=== PATIENT | female | born 1995 | race Caucasian/White ===

== ENCOUNTER 2022-01-28 20:40 | Observation (INO) | payer OTHER, SELFPAY ==
[2022-01-28 21:15] VITALS: BMI 52.0
--- NOTE | 2022-01-28 21:15 | OBADM ---
This patient, Celia Xavier, admitted to the OB room OB Post 113 for observation. Patient/family oriented to hospital policies and general routines including ID bracelet, bed and alarms, visiting hours, pain management, procedures, bathroom and other care routines, personal items, smoking policy, room service/diet, and visiting hours. Patient/Family are encouraged to report perceived risks to care and to ask questions if they do not understand what they are told or what they should do.
[2022-01-28 21:16] VITALS: BP 134/53; PULSE 88
[2022-01-28 21:31] VITALS: BP 135/101; PULSE 89
[2022-01-28 21:52] VITALS: BP 114/68; PULSE 85
--- NOTE | 2022-01-28 22:00 | PC.NURSE ---
Dr Moreno notified of adm c/o and that patient is now feeling better and wants to go home. Ok to dc home.
--- NOTE | 2022-01-31 07:09 | PM.OBTRLD ---
OB - Triage/Final Diagnosis Visit Information Date of evaluation: 01/30/22 Reason for evaluation: other (nausea/dehydration) Comments/Additional reasons for admission: I have assessed the risk for this patient, Celia Xavier, and determined that she would benefit from observation care.
== END 2022-01-28 22:12 | disposition home or self-care (01) ==
PROVIDERS: Admitting Provider Obstetrics & Gynecology; Visit Provider Obstetrics & Gynecology
DX: O99.283 Endocrine, nutritional and metabolic diseases complicating pregnancy, third trimester (principal); R11.0 Nausea; E86.0 Dehydration; Z3A.28 28 weeks gestation of pregnancy
CPT/HCPCS: G0378; G0379

== ENCOUNTER 2022-01-30 10:11 | Observation (INO) | payer OTHER, SELFPAY ==
[2022-01-30 10:55] VITALS: BP 124/59; PULSE 89
--- NOTE | 2022-01-30 11:00 | PC.NURSE ---
Dr. Ton Palacio on phone and informed this pt who he was assigned as the walk in doctor on 01/28/22 is back this morning with c/o abdominal pain and diarrhea. Pt has had diarrhea since 0200 today, but has been able to drink and keep liquids down.
[2022-01-30 11:01] VITALS: BP 123/63; PULSE 87; BMI 54.8
--- NOTE | 2022-01-30 11:01 | OBADM ---
This patient, Celia Xavier, admitted to the OB room 116 for observation for abdominal pain and diarrhea. Patient/family oriented to hospital policies and general routines including ID bracelet, bed and alarms, visiting hours, pain management, procedures, bathroom and other care routines, personal items, smoking policy, room service/diet, and visiting hours. Patient/Family are encouraged to report perceived risks to care and to ask questions if they do not understand what they are told or what they should do.
--- NOTE | 2022-01-30 11:15 | PC.NURSE ---
Dr. Ton Palacio on unit and informed this pt is looking for a physician to assume her care since she moved here 2 weeks ago. Pt has had care in [place]. 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 MD will accept pt. in to see pt.
[2022-01-30 11:16] VITALS: BP 130/60; PULSE 87
--- NOTE | 2022-01-30 11:28 | PM.OBTRLD ---
OB - Triage/Final Diagnosis Visit Information Date of evaluation: 01/30/22 Reason for evaluation: other (nausea) Comments/Additional reasons for admission: I have assessed the risk for this patient, Celia Xavier, and determined that she would benefit from observation care. Evaluation Vital signs: Vital Signs - 24 hr 01/30/22 10:55 01/30/22 11:01 01/30/22 11:16 Pulse Rate 89 87 87 Blood Pressure 124/59 L 123/63 130/60
[2022-01-30 11:31] VITALS: BP 87/54; PULSE 83
[2022-01-30 11:46] VITALS: BP 115/58; PULSE 92
[2022-01-30 11:51] VITALS: BP 115/58; PULSE 83
--- NOTE | 2022-01-30 12:27 | PC.NURSE ---
Faxed Release of Information consent to Dr. Gordon's office in [place], [place]. records to be faxed to Dr. Ton Palacio's office.
== END 2022-01-30 15:48 | disposition home or self-care (01) ==
PROVIDERS: Admitting Provider Obstetrics & Gynecology; Visit Provider Obstetrics & Gynecology
DX: O21.0 Mild hyperemesis gravidarum (principal); Z3A.00 Weeks of gestation of pregnancy not specified
CPT/HCPCS: 59025; G0378; G0379

== ENCOUNTER 2022-02-22 19:30 | Outpatient (CLI) | payer OTHER, SELFPAY ==
[2022-02-22] VITALS (10 sets, daily range): BP systolic 133–153; BP diastolic 56–79; PULSE 86–102; BMI 54.6
[2022-02-22 20:15] LABS: Basophils Absolute Auto 0.1 K/mm3 (0.0-0.1); Basophils Percent Auto 0.5 % (0.2-1.2); Eosinophils Absolute Auto 0.3 K/mm3 (0-0.3); Eosinophils Percent Auto 2.1 % (0-4.4); Hematocrit 29.1 % (37.0-47.0); Hemoglobin 8.3 g/dL (12.0-15.0); Immature Granulocyte Absolute 0.35 K/mm3 (0.00-0.031); Immature Granulocyte Percent A 2.3 % (0-0.5); Lymphocytes Absolute Auto 2.13 K/mm3 (0.9-3.2); Lymphocytes Percent Auto 13.8 % (18.3-44.2); Mean Corpuscular HGB Conc 28.5 g/dl (32-36); Mean Corpuscular Hemoglobin 21.9 pg (26-34); Mean Corpuscular Volume 76.8 fl (80-100); Monocytes Absolute Auto 1.1 K/mm3 (0.1-0.6); Neutrophils Absolute Auto 11.5 K/mm3 (1.3-6.7); Neutrophils Percent Auto 74.3 % (45.5-73.1); Nucleated Red Blood Cells Perc 0.1 % (0.0-0.2); Platelet Count Result 265 k/mm3 (150-375); Red Blood Count 3.79 M/mm3 (4.2-5.4); Red Cell Distribution Width 19.2 % (11.5-14.5); White Blood Count 15.4 K/mm3 (4.5-10.0)
--- NOTE | 2022-02-22 20:20 | OBADM ---
This patient, Celia Xavier, admitted to the OB room OB Post 116 for observation. Patient/family oriented to hospital policies and general routines including ID bracelet, bed and alarms, visiting hours, pain management, procedures, bathroom and other care routines, personal items, smoking policy, room service/diet, and visiting hours. Patient/Family are encouraged to report perceived risks to care and to ask questions if they do not understand what they are told or what they should do.
[2022-02-22 20:22] LABS: Creatinine Urine 181.7 mg/dL
[2022-02-22 20:24] LABS: Hypochromasia 1+ (NORMAL); Ovalocytes 1+ (NORMAL); Platelet Estimate Adequate (Adequate)
[2022-02-22 20:26] LABS: Alanine Aminotransferase 10 U/L (6-35); Albumin Level 3.5 g/dL (3.5-5.1); Alkaline Phosphatase 88 U/L (38-126); Anion Gap 4 mmol/L (8-16); Aspartate Amino Transferase 17 U/L (14-36); Bilirubin,Total 0.3 mg/dL (0.2-1.3); Blood Urea Nitrogen 8 mg/dL (7-17); Calcium 8.1 mg/dL (8.4-10.2); Carbon Dioxide 23 mmol/L (22-30); Chloride 107 mmol/L (98-107); Estimated Glomerular Filt Rate > 60; Glucose 97 mg/dL (65-110); Potassium 3.7 mmol/L (3.4-5.0); Sodium 134 mmol/L (137-145); Uric Acid 3.6 mg/dL (2.5-7.5)
[2022-02-22 20:32] LABS: Amorphous Sediment Urine Few; Bacteria Urine Trace /hpf; Mucus Urine Rare /lpf; Squamous Epithelial Cell Urine Many /hpf (Few)
[2022-02-22 20:33] LABS: Appearance Urine Cloudy (Clear); Color Urine Yellow (Yellow)
[2022-02-22 20:35] LABS: Add Urine Microscopic? YES; Bilirubin Urine Negative (Negative); Blood Urine Negative (Negative); Glucose Urine UA Negative (Negative); Ketones Urine Negative (Negative); Leukocyte Esterase Ur Negative LEU/UL (NEGATIVE); Nitrate Urine Negative (Negative); Protein Urine Negative (Negative); Specific Grav Ur 1.025 (1.001-1.035); Urobilinogen Urine 0.2 mg/dL (<2.0); pH Urine 6.5 (5.0-9.0)
[2022-02-22 20:55] LABS: Total Protein Urine Random < 5 mg/dL; Ur Ttl Prot Creatinine Ratio < 0.03 mg/mg (0-0.20)
[2022-02-22] MEDS: diphenhydrAMINE HCl INJ 50 MG/ML VIAL 25 MG IV PUSH (22:16)
[2022-02-22] MEDS: METOCLOPRAMIDE HCL INJ 10 MG/2 ML VIAL IV PUSH (22:17)
== END 2022-02-22 23:21 | disposition home or self-care (01) ==
LOC: ANHOBOP 19:35 → ANHOBPP 22:56
PROVIDERS: Student in an Organized Health Care Education/Training Program; Visit Provider Obstetrics & Gynecology
DX: O13.9 Gestational [pregnancy-induced] hypertension without significant proteinuria, unspecified trimester (principal); Z3A.00 Weeks of gestation of pregnancy not specified
CPT/HCPCS: 36415; 80053; 81001; 82570; 84156; 84550; 85025; 87086; 99199; J1200; J2765

== ENCOUNTER 2022-02-23 06:25 | Observation (INO) | payer OTHER, SELFPAY ==
[2022-02-23] VITALS (10 sets, daily range): BP systolic 110–120; BP diastolic 43–66; PULSE 79–97; O2SAT 96–99; BMI 55.0
--- NOTE | 2022-02-23 07:03 | LDADM ---
This patient, Celia Xavier, was admitted to OB Post 116 on 02/23/22 at 06:25. Plans for labor, pain management and were discussed with patient. Patient/family oriented to hospital policies and general routines including ID bracelet, bed and alarms, visiting hours, pain management, procedures, bathroom and other care routines, personal items, smoking policy, room service/diet and guest tray routines, security routines, and visiting hours. Patient/Family are encouraged to report perceived risks to care and to ask questions if they do not understand what they are told or what they should do. See OBIX for further documentation. Pt. presents with h/a, abdominal pain and back pain that are intermittent. Pt. rates pain 4/10.
[2022-02-23 07:22] LABS: Appearance Urine Slightly Cloudy (Clear); Bilirubin Urine 1+ (Negative); Blood Urine Negative (Negative); Color Urine Yellow (Yellow); Glucose Urine UA Negative (Negative); Ketones Urine Trace mg/dL (Negative); Leukocyte Esterase Ur Negative LEU/UL (Negative); Nitrate Urine Negative (Negative); Protein Urine Trace mg/dL (Negative); pH Urine 8.5 (5.0-9.0)
[2022-02-23 07:26] LABS: Bacteria Urine Trace /hpf; Mucus Urine Rare /lpf; Squamous Epithelial Cell Urine Many /hpf (Few); WBC Urine 0-3 /hpf
[2022-02-23 07:27] LABS: Add Urine Microscopic? YES
--- NOTE | 2022-02-23 08:24 | P.PNOB_ITS ---
OB - Triage/Final Diagnosis Visit Information Date of evaluation: 02/23/22 Reason for evaluation: other (headache) Comments/Additional reasons for admission: I have assessed the risk for this patient, Celia Xavier, and determined that she would benefit from observation care. Evaluation Laboratory results: Laboratory Tests 02/23/22 07:13 Urine Color Yellow Urine Appearance Slightly cloudy Urine pH 8.5 Ur Specific [place] 1.020 Urine Protein Trace Urine Glucose (UA) Negative Urine Ketones Trace Ur Blood (Man) Negative Urine Nitrate Negative Urine Bilirubin 1+ H Urine Urobilinogen 2.0 H Leukocyte Esterase Rfl Negative Urine RBC 3-5 H Urine WBC 0-3 Ur Squamous Epith Cells Many H Urine Bacteria Trace Urine Mucus Rare Vital signs: Vital Signs - 24 hr 02/23/22 06:56 02/23/22 07:01 02/23/22 07:06 Pulse Rate 90 91 Blood Pressure 118/53 L 111/54 L Pulse Oximetry 96 98 02/23/22 07:11 02/23/22 07:16 02/23/22 07:21 Pulse Rate 87 Blood Pressure 120/66 Pulse Oximetry 98 99 99 02/23/22 07:26 02/23/22 07:31 02/23/22 07:46 Pulse Rate 84 79 Blood Pressure 117/43 L 110/48 L Pulse Oximetry 99 99 02/23/22 07:02 Pulse Rate 91 Blood Pressure 111/54 L Pulse Oximetry 96
[2022-02-23] MEDS: METOCLOPRAMIDE HCL INJ 10 MG/2 ML VIAL IV PUSH (09:02)
[2022-02-23] MEDS: diphenhydrAMINE HCl INJ 50 MG/ML VIAL 25 MG IV PUSH (09:02)
--- NOTE | 2022-03-29 12:54 | P.HP_ITS ---
H&P: HPI History of Present Illness Date/Time: 03/29/22 12:54 Chief Complaint: Repeat section at 37 weeks Narrative: This is a 26-year-old 4 para 2011 with 2 previous sections, an EDC of 04/22/2022 that was confirmed by 10 week ultrasound elsewhere who presents for repeat section. Significantly her last resulted in a saddle embolus as she had COVID with active pneumonia and severe - induced hypertension. I 1st saw her at 30 weeks gestation. She was seen as a walk-in. She had been diagnosed with the need for Lovenox 70mg b.i.d. but had not taken it for several weeks. She reluctantly returned to that after strong urging. This was taken until 1 week prior to delivery at which time she was switched to heparin b.i.d.. She was to stop her heparin the night before repeat section. She is morbidly obese and of high risk but would not see a maternal medicine specialist in [facility] Home Medications and Allergies Home Medications Medication Instructions Recorded Confirmed Type albuterol sulfate 90 mcg/actuation 2 puff inhalation Q4H PRN 01/30/22 02/23/22 History aerosol inhaler Shortness Of Breath enoxaparin 80 mg/0.8 mL 70 mg subcut BID 01/30/22 02/23/22 History subcutaneous syringe ondansetron 4 mg disintegrating 4 mg PO Q8H PRN Nausea #30 tabs 01/30/22 02/23/22 Rx tablet acetaminophen 325 mg capsule 1,000 mg PO Q8H PRN Headache 02/23/22 02/23/22 History (Tylenol) irpxahndbl-pnxtkomgmenbl-zrbxepzp 1 cap PO Q6H PRN pain #30 caps 02/23/22 Rx 50 mg-300 mg-40 mg capsule (Fioricet) ferrous sulfate 325 mg (65 mg 325 mg PO DAILY #30 tabs 02/23/22 Rx iron) tablet Allergies Allergy/AdvReac Type Severity Reaction Status Date / Time No Known Allergies Allergy Verified 01/30/22 14:53 Exam Const: General: cooperative and comfortable Nutritional Appearance: obese and overweight Orientation/consciousness: oriented to person, oriented to place and oriented to time Chest: Chest palpation & inspection: normal inspection of the chest Resp: Effort & Inspection: normal respiratory effort Cardio: Rhythm: regular rhythm GI: Inspection: Pannus present and obesity Auscultation: normal bowel sounds : Bimanual exam- vagina & uterus: enlarged (Soft gravid uterus) Assessment and Plan Assessment and plan (1) Term : Code(s): Z34.90 - Encounter for supervision of normal , unspecified, unspecified trimester Status: Acute (2) Previous section: Code(s): Z98.891 - History of uterine scar from previous surgery Status: Acute (3) History of pulmonary embolism: Code(s): Z86.711 - Personal history of pulmonary embolism Status: Acute (4) Morbid obesity: Code(s): E66.01 - Morbid (severe) obesity due to excess calories Status: Acute Additional Plan Repeat section
== END 2022-02-23 09:14 | disposition home or self-care (01) ==
PROVIDERS: Admitting Provider Obstetrics & Gynecology; Visit Provider Student in an Organized Health Care Education/Training Program
DX: O26.893 Other specified pregnancy related conditions, third trimester (principal); R51.9 Headache, unspecified; Z3A.31 31 weeks gestation of pregnancy
CPT/HCPCS: 81001; 96374; 96375; G0378; G0379; J1200; J2765

== ENCOUNTER 2022-04-02 04:53 | Inpatient (IN) | payer OTHER, SELFPAY ==
--- NOTE | 2022-03-29 12:59 | HP_ITS ---
This report was moved to the correct visit on 04/12/22. Original report was signed by Felipe Edmonds MD on 03/29/22 2524. H&P: HPI History of Present Illness Date/Time: 03/29/22 12:54 Chief Complaint: Repeat section at 37 weeks Narrative: This is a 26-year-old 4 para 2011 with 2 previous sections, an EDC of 04/22/2022 that was confirmed by 10 week ultrasound elsewhere who presents for repeat section. Significantly her last resulted in a saddle embolus as she had COVID with active pneumonia and severe - induced hypertension. I 1st saw her at 30 weeks gestation. She was seen as a walk-in. She had been diagnosed with the need for Lovenox 70mg b.i.d. but had not taken it for several weeks. She reluctantly returned to that after strong urging. This was taken until 1 week prior to delivery at which time she was switched to heparin b.i.d.. She was to stop her heparin the night before repeat section. She is morbidly obese and of high risk but would not see a maternal medicine specialist in [facility] Home Medications and Allergies Home Medications Medication Instructions Recorded Confirmed Type albuterol sulfate 90 mcg/actuation 2 puff inhalation Q4H PRN 01/30/22 02/23/22 History aerosol inhaler Shortness Of Breath enoxaparin 80 mg/0.8 mL 70 mg subcut BID 01/30/22 02/23/22 History subcutaneous syringe ondansetron 4 mg disintegrating 4 mg PO Q8H PRN Nausea #30 tabs 01/30/22 02/23/22 Rx tablet acetaminophen 325 mg capsule 1,000 mg PO Q8H PRN Headache 02/23/22 02/23/22 History (Tylenol) vaudrzyidg-tymujwwgdjfxt-nifvjeju 1 cap PO Q6H PRN pain #30 caps 02/23/22 Rx 50 mg-300 mg-40 mg capsule (Fioricet) ferrous sulfate 325 mg (65 mg 325 mg PO DAILY #30 tabs 02/23/22 Rx iron) tablet Allergies Allergy/AdvReac Type Severity Reaction Status Date / Time No Known Allergies Allergy Verified 01/30/22 14:53 Exam Const: General: cooperative and comfortable Nutritional Appearance: obese and overweight Orientation/consciousness: oriented to person, oriented to place and oriented to time Chest: Chest palpation & inspection: normal inspection of the chest Resp: Effort & Inspection: normal respiratory effort Cardio: Rhythm: regular rhythm GI: Inspection: Pannus present and obesity Auscultation: normal bowel sounds : Bimanual exam- vagina & uterus: enlarged (Soft gravid uterus) Assessment and Plan Assessment and plan (1) Term : Code(s): Z34.90 - Encounter for supervision of normal , unspecified, unspecified trimester Status: Acute (2) Previous section: Code(s): Z98.891 - History of uterine scar from previous surgery Status: Acute (3) History of pulmonary embolism: Code(s): Z86.711 - Personal history of pulmonary embolism Status: Acute (4) Morbid obesity: Code(s): E66.01 - Morbid (severe) obesity due to excess calories Status: Acute Additional Plan Repeat section This dictation may have been done utilizing a voice recognition system. Attempts have been made to correct errors. However, there may be uncorrected grammatical, spelling, and recognition errors present. Report Initialized date/time: Felipe Edmonds MD 03/29/22 / 1259 Electronically signed by: Felipe Edmonds MD 03/29/22 1259 [facility]WORK[facility]
[2022-04-02] VITALS (59 sets, daily range): BP systolic 62–165; BP diastolic 39–143; PULSE 60–90; RESP 16–20; TEMP 36.1–37.2; O2SAT 95–99; BMI 55.3
[2022-04-02 05:51] LABS: Basophils Absolute Auto 0.1 K/mm3 (0.0-0.1); Basophils Percent Auto 0.5 % (0.2-1.2); Eosinophils Absolute Auto 0.4 K/mm3 (0-0.3); Hematocrit 29.1 % (37.0-47.0); Hemoglobin 8.5 g/dL (12.0-15.0); Immature Granulocyte Absolute 0.39 K/mm3 (0.00-0.031); Immature Granulocyte Percent A 2.8 % (0-0.5); Lymphocytes Absolute Auto 3.33 K/mm3 (0.9-3.2); Lymphocytes Percent Auto 23.6 % (18.3-44.2); Mean Corpuscular HGB Conc 29.2 g/dl (32-36); Mean Corpuscular Hemoglobin 21.7 pg (26-34); Mean Corpuscular Volume 74.2 fl (80-100); Mean Platelet Volume 11.3 fl (7.4-10.4); Monocytes Absolute Auto 1.2 K/mm3 (0.1-0.6); Monocytes Percent Auto 8.2 % (2.6-8.5); Neutrophils Absolute Auto 8.7 K/mm3 (1.3-6.7); Neutrophils Percent Auto 61.9 % (45.5-73.1); Nucleated Red Blood Cells Perc 0.1 % (0.0-0.2); Platelet Count Result 322 k/mm3 (150-375); Red Blood Count 3.92 M/mm3 (4.2-5.4); Red Cell Distribution Width 19.9 % (11.5-14.5); White Blood Count 14.1 K/mm3 (4.5-10.0)
[2022-04-02 06:02] LABS: Alanine Aminotransferase 10 U/L (6-35); Albumin Level 3.5 g/dL (3.5-5.1); Alkaline Phosphatase 112 U/L (38-126); Anion Gap 4 mmol/L (8-16); Aspartate Amino Transferase 15 U/L (14-36); Bilirubin,Total 0.2 mg/dL (0.2-1.3); Blood Urea Nitrogen 7 mg/dL (7-17); Calcium 8.5 mg/dL (8.4-10.2); Carbon Dioxide 21 mmol/L (22-30); Chloride 108 mmol/L (98-107); Estimated CRCL calculation 209 ml/min; Estimated Glomerular Filt Rate > 60; Glucose 108 mg/dL (65-110); Potassium 3.8 mmol/L (3.4-5.0); Sodium 133 mmol/L (137-145); Uric Acid 4.4 mg/dL (2.5-7.5)
[2022-04-02 06:08] LABS: Amphetamine Screen Urine Negative (Negative); Barbiturate Screen Urine Negative (Negative); Benzodiazepines Screen Urine Negative (Negative); Cannabinoid Screen Urine Negative (Negative); Cocaine Screen Urine Negative (Negative); Methadone Screen Urine Negative (Negative); Opiate Screen Urine Negative (Negative); Phencyclidine Screen Urine Negative (Negative)
[2022-04-02] MEDS: LACTATED RINGERS 1,000 ML 125 ML IV CONT (06:11)
[2022-04-02 06:23] LABS: Microcytosis 1+ (NORMAL); Platelet Estimate Adequate (Adequate)
[2022-04-02 06:45] LABS: HIV 1/2 Ab P24 Ag Result Negative (Negative)
--- NOTE | 2022-04-02 06:50 | WPDHPUPDATE1 ---
History and Physical Update Update Date/Time: 04/02/22 06:50 History and Physical has been reviewed, including an updated exam of the patient. There are NO changes in the patient's condition. Risks, benefits, and alternatives have been discussed and questions answered. Patient agrees to proceed with procedure.
--- NOTE | 2022-04-02 06:58 | WPDANESEPPF ---
Anes - Initial Pre Proc Eval Procedure: Operation Date: 04/02/22 07:30 Proposed Procedures p Repeat Section - Felipe Palacio MD Date/Time: 04/02/22 06:58 Surgeon: Felipe Palacio MD Pre Op Diagnosis: Repeat , 37 wks hx saddle embol Patient Data Age: 26 Gender: F Height: 1.65 m Weight: 151 kg Last Vital Signs Temp 36.3 C L 04/02/22 05:32 Pulse 90 04/02/22 05:33 BP 93/67 L 04/02/22 05:33 O2 Del Method Room Air 04/02/22 05:56 Allergies Allergy/AdvReac Type Severity Reaction Status Date / Time No Known Allergies Allergy Verified 01/30/22 14:53 Home Medications Medication Instructions Recorded Confirmed Type albuterol sulfate 90 mcg/actuation 2 puff inhalation Q4H PRN 01/30/22 04/02/22 History aerosol inhaler Shortness Of Breath enoxaparin 80 mg/0.8 mL 70 mg subcut BID 01/30/22 04/02/22 History subcutaneous syringe ondansetron 4 mg disintegrating 4 mg PO Q8H PRN Nausea #30 tabs 01/30/22 04/02/22 Rx tablet acetaminophen 325 mg capsule 1,000 mg PO Q8H PRN Headache 02/23/22 04/02/22 History (Tylenol) qydkseooiy-zlohqlpqkzqnb-thoxwjwq 1 cap PO Q6H PRN pain #30 caps 02/23/22 04/02/22 Rx 50 mg-300 mg-40 mg capsule (Fioricet) heparin (porcine) 5,000 unit/mL 5,000 unit subcut DAILY 04/02/22 04/02/22 History injection solution hydrocodone 5 mg-acetaminophen 325 1 tablet PO Q4H PRN pain #30 tabs 04/02/22 Rx mg tablet Laboratory Tests 04/02/22 04/02/22 04/02/22 05:34 05:34 05:34 WBC 14.1 K/mm3 H K/mm3 (4.5-10.0) RBC 3.92 M/mm3 L M/mm3 (4.2-5.4) Hgb 8.5 g/dL L g/dL (12.0-15.0) Hct 29.1 % L % (37.0-47.0) MCV 74.2 fl L fl (80-100) MCH 21.7 pg L pg (26-34) MCHC 29.2 g/dl L g/dl (32-36) RDW 19.9 % H % (11.5-14.5) Plt Count 322 k/mm3 k/mm3 (150-375) MPV 11.3 fl H fl (7.4-10.4) Immature Gran % (Auto) 2.8 % H % (0-0.5) Neut % (Auto) 61.9 % % (45.5-73.1) Lymph % (Auto) 23.6 % % (18.3-44.2) [place] % (Auto) 8.2 % % (2.6-8.5) Eos % (Auto) 3.0 % % (0-4.4) Baso % (Auto) 0.5 % % (0.2-1.2) Lymph # (Auto) 3.33 K/mm3 H K/mm3 (0.9-3.2) [place] # (Auto) 1.2 K/mm3 H K/mm3 (0.1-0.6) Eos # (Auto) 0.4 K/mm3 H K/mm3 (0-0.3) Baso # (Auto) 0.1 K/mm3 K/mm3 (0.0-0.1) Abs Immat Gran (auto) 0.39 K/mm3 H K/mm3 (0.00-0.031) Absolute Neuts (auto) 8.7 K/mm3 H K/mm3 (1.3-6.7) Absolute Nucleated RBC 0.0 K/mm3 K/mm3 (0.0-0.012) Nucleated RBC % 0.1 % % (0.0-0.2) Platelet Estimate Adequate (Adequate) Microcytosis 1+ (NORMAL) Sodium Potassium Chloride Carbon Dioxide Anion Gap BUN Creatinine Estim Creat Clear Calc Estimated GFR Glucose Uric Acid Calcium Total Bilirubin AST ALT Alkaline Phosphatase Total Protein Albumin Urine Opiates Screen Urine Methadone Screen Ur Barbiturates Screen Ur Phencyclidine Scrn Ur Amphetamine Screen U Benzodiazepines Scrn Urine Cocaine Screen U Cannabinoids Screen RPR Pending HIV 1&2 Ab/P24 Ag 4thGn Negative (Negative) 04/02/22 04/02/22 05:34 05:34 WBC RBC Hgb Hct MCV MCH MCHC RDW Plt Count MPV Immature Gran % (Auto) Neut % (Auto) Lymph % (Auto) [place] % (Auto) Eos % (Auto) Baso % (Auto) Lymph # (Auto) [place] # (Auto) Eos # (Au
[2022-04-02 07:09] LABS: Rapid Plasma Reagin Non-Reactive (NonReactive)
[2022-04-02] MEDS: ceFAZolin 3 GM/D5W 100 ML 100 ML IVPB (07:15)
--- NOTE | 2022-04-02 08:15 | W.PM.PROC2 ---
Procedure Note - Detailed Date of Procedure 04/02/22 Pre-op Diagnosis Repeat , 37 wks hx saddle embol Post-op Diagnosis Same Procedure Performed Repeat low-transverse section Surgeon Felipe Palacio MD Anesthesia Spinal Indications This is a 18-year-old all tip at 37 half weeks gestation for repeat section who has been on Lovenox and transition to heparin secondary to history of saddle embolus Findings Female infant 7lb 1oz 9 and 9 [id number] respectively normal-appearing uterus ovaries and tubes Description of Procedure The patient was prepped draped in the sterile fashion placed in the dorsal lithotomy position. Under excellent spinal anesthetic the abdomen is entered in Pfannenstiel fashion progressive layers of fascia. Fascia was incised midline 10 upward outward fashion bilaterally. Underlying muscles sharply dissected. Parietal peritoneum L by Millie clamps and by sharp dissection superiorly and inferiorly down the bladder. Bladder blade placed bladder flap formed bladder blade returned. A low-transverse incision made head delivered the GREGORIA position. Anterior posterior shoulder delivered spontaneously. Cord clamped to with cut and passed off the table with excellent cry. Placenta delivered intact manually uterus delivered on the abdomen right moist towel. After assuring no membranes or debris remained in the uterus, the uterus closed with continuous running locking 0 Vicryl from lateral edge to lateral edge. This was followed by 2nd running imbricating locking 0 Vicryl from lateral edge to lateral edge. Hemostasis was assured. Ovaries and tubes appeared within normal limits and the uterus returned the abdomen. The hysterotomy incision inspected 1 last time noted be hemostatic. Laps removed and accounted for. The fascia closed with continuous running 0 Vicryl from lateral edge to midline bilaterally. Irrigation subcutaneous layer, and the incision closed with 4 Monocryl and glue. QBL was 460. All sponge, needle, instrument counts were correct. There were no immediate complications noted Estimated Blood Loss 460 Drains No Pathology None sent Complications No immediate complications Condition Stable Disposition PACU
[2022-04-02] MEDS: diphenhydrAMINE HCl INJ 50 MG/ML VIAL 25 MG IV PUSH (08:44)
[2022-04-02] MEDS: OXYTOCIN 30 UNITS/NS 500 ML 30 UNITS/500 ML BAG 125 UNITS IV CONT (10:08)
[2022-04-02] MEDS: LORATADINE 10 MG TABLET PO (10:30)
--- NOTE | 2022-04-02 10:40 | PC.NURSE ---
Patient transferred to post room #292 via stretcher. Support person present. Oriented to unit, room, information board, rooming in, admission packet and security measures. Patient verbalizes understanding.
[2022-04-02] MEDS: DEXTROSE 5%/0.45% SOD CHL 1,000 ML 125 ML IV CONT (14:32)
[2022-04-02] MEDS: KETOROLAC 30 MG/ML VIAL (*BKC) IV PUSH (14:35)
[2022-04-02] MEDS: HYDROcodone/acetaminophen (*CRX) 5-325 MG TABLET 1 TAB PO ×2 (18:41→23:05)
[2022-04-02] MEDS: IBUPROFEN 600 MG TABLET PO (18:41)
[2022-04-02] MEDS: diphenhydrAMINE HCl CAP 25 MG CAPSULE PO (19:47)
[2022-04-02] MEDS: ENOXAPARIN 60 MG/0.6 ML SYRINGE SUB-Q (21:00)
[2022-04-03] MEDS: HYDROcodone/acetaminophen (*CRX) 5-325 MG TABLET 1 TAB PO ×2 (02:38→18:04)
[2022-04-03] MEDS: IBUPROFEN 600 MG TABLET PO ×3 (02:39→18:05)
[2022-04-03] MEDS: LANOLIN (LANSINOH) 7.5 GM CREAM 1 APPLIC TOPICAL (02:50)
[2022-04-03] MEDS: SIMETHICONE 80 MG TAB.CHEW PO ×4 (03:18→18:05)
[2022-04-03 04:30] VITALS: BP 131/54; PULSE 68; RESP 18; TEMP 36.6
[2022-04-03 05:51] LABS: Basophils Absolute Auto 0.1 K/mm3 (0.0-0.1); Basophils Percent Auto 0.3 % (0.2-1.2); Eosinophils Absolute Auto 0.1 K/mm3 (0-0.3); Eosinophils Percent Auto 0.5 % (0-4.4); Hematocrit 23.7 % (37.0-47.0); Immature Granulocyte Percent A 2.2 % (0-0.5); Lymphocytes Absolute Auto 3.17 K/mm3 (0.9-3.2); Lymphocytes Percent Auto 17.7 % (18.3-44.2); Mean Corpuscular HGB Conc 29.1 g/dl (32-36); Mean Corpuscular Hemoglobin 21.8 pg (26-34); Mean Platelet Volume 11.8 fl (7.4-10.4); Monocytes Absolute Auto 1.7 K/mm3 (0.1-0.6); Monocytes Percent Auto 9.3 % (2.6-8.5); Neutrophils Absolute Auto 12.5 K/mm3 (1.3-6.7); Nucleated Red Blood Cells Perc 0.1 % (0.0-0.2); Platelet Count Result 259 k/mm3 (150-375); Red Blood Count 3.16 M/mm3 (4.2-5.4); Red Cell Distribution Width 19.5 % (11.5-14.5); White Blood Count 17.9 K/mm3 (4.5-10.0)
[2022-04-03 06:37] LABS: Hemoglobin 6.9 g/dL (12.0-15.0)
--- NOTE | 2022-04-03 06:59 | PM.OBPNVD ---
OB - PN: Subj Subjective Date/time seen: 04/03/22 06:59 Patient comments: no complaints and pain well controlled baby status: doing well OB - PN: Obj Data Labs CBC & Chem 7: 04/03/22 04:40 04/02/22 05:34 Labs: Laboratory Results - last 24 hr 04/02/22 04/02/22 04/03/22 05:34 05:34 04:40 WBC 17.9 H RBC 3.16 L Hgb 6.9 L* Hct 23.7 L MCV 75.0 L MCH 21.8 L MCHC 29.1 L RDW 19.5 H Plt Count 259 MPV 11.8 H Immature Gran % (Auto) 2.2 H Neut % (Auto) 70.0 Lymph % (Auto) 17.7 L [place] % (Auto) 9.3 H Eos % (Auto) 0.5 Baso % (Auto) 0.3 Lymph # (Auto) 3.17 [place] # (Auto) 1.7 H Eos # (Auto) 0.1 Baso # (Auto) 0.1 Abs Immat Gran (auto) 0.40 H Absolute Neuts (auto) 12.5 H Absolute Nucleated RBC 0.0 Nucleated RBC % 0.1 RPR Non-reactive Blood Type A Positive Antibody Screen Negative OB - PN A/P Plan day: 1 Plan: routine care Time Spent With Patient Time: Total time spent is greater than 50% in coordination of care (as documented) at patient's floor/unit and/or counseling patient: Time with patient: less than 15 minutes
--- NOTE | 2022-04-03 07:30 | PC.NURSE ---
PT introductions made and plan of care discussed per post op c section, pain management, breast feeding, daily care activities. PT and mother in law both received instructions per protocol and verbalized understanding. No barriers to learning identified at this time. Pt received instructions this shift via one to one discussion, mom baby care guide and demonstrations.
[2022-04-03 07:35] VITALS: BP 124/53; PULSE 78; RESP 18; TEMP 36.3; O2SAT 100
--- NOTE | 2022-04-03 09:32 | WPDANLDPN2 ---
Anes-Prog Note L&D Date/Time: 04/03/22 09:32 Neuro status: Neuro function grossly intact. Vital Signs: Last Vital Signs Temp 36.3 C L 04/03/22 07:35 Pulse 78 04/03/22 07:35 Resp 18 04/03/22 07:35 BP 124/53 L 04/03/22 07:35 Pulse Ox 100 04/03/22 07:35 O2 Del Method Room Air 04/03/22 04:30 Pain score (VAS): 0 I/O: Intake & Output 04/02/22 04/03/22 04/03/22 23:59 07:59 15:59 Intake Total 2400 Output Total 2000 250 Balance 400 -250 Patient feedback: Patient satisfied with anesthetic care.
[2022-04-03 09:36] VITALS: PULSE 78; RESP 18; O2SAT 100
[2022-04-03] MEDS: DOCUSATE SODIUM 100 MG CAPSULE PO ×2 (09:36→18:05)
[2022-04-03] MEDS: POLYSACCHARIDE IRON COMPLEX 150 MG CAPSULE PO ×2 (09:36→18:05)
[2022-04-03] MEDS: ENOXAPARIN 60 MG/0.6 ML SYRINGE SUB-Q ×2 (09:36→20:05)
[2022-04-03] MEDS: MULTIVIT/MIN/PREN/FOL AC/IRON TABLET 1 TAB PO (09:36)
[2022-04-03] MEDS: HYDROcodone/acetaminophen (*CRX) 10-325 MG TABLET 1 TAB PO ×3 (09:36→20:05)
--- NOTE | 2022-04-03 10:08 | WPDANLDNPN2 ---
Anes-Prog Note L&D-Neuraxial Date/Time: 04/03/22 10:08 Neuraxial medications: intrathecal PF morphine Opiod-related complaints: none Patient feedback: Patient satisfied with post-operative pain management.
[2022-04-03 15:00] VITALS: BP 141/76; PULSE 81; RESP 16; TEMP 36.7; O2SAT 98
--- NOTE | 2022-04-03 15:58 | PCCCNOTE ---
Care Coordination met with pt. and MIL this morning to discuss discharge planning. Pt.'s and FOB is currently incarcerated. Pt. plans to D/C home alone with her other 2 children. Pt.'s other children are 7 and 17 monthes, they are with their paternal grandfather while pt. is hospitalized. Pt. confirms she has everything needed to safely bring baby home. She has appointment to set up WIC and will continue to breast feed at time of D/C. Pt. will bring car seat to the hospital to see if it is appropriate. 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 Pt. did not test positive for any drugs at admission, baby's umbilical cord has been sent. Pt. states she has no open DCFS cases. She is in the process of finding a section crews activities clerk for baby, RN aware. Pt. has been provided a basket for baby. She has no concerns about bringing baby home at this time.
[2022-04-03 20:00] VITALS: BP 120/47; PULSE 89; RESP 16; TEMP 36.6
[2022-04-04] MEDS: HYDROcodone/acetaminophen (*CRX) 5-325 MG TABLET 1 TAB PO ×6 (03:20→23:36)
[2022-04-04] MEDS: IBUPROFEN 600 MG TABLET PO ×4 (03:21→23:36)
--- NOTE | 2022-04-04 07:01 | PM.OBPNVD ---
OB - PN: Subj Subjective Date/time seen: 04/04/22 07:01 Patient comments: no complaints and pain well controlled baby status: doing well and nursing well OB - PN: Obj Data Labs CBC & Chem 7: 04/03/22 04:40 04/02/22 05:34 OB - PN A/P Plan day: 2 Plan: routine care Time Spent With Patient Time: Total time spent is greater than 50% in coordination of care (as documented) at patient's floor/unit and/or counseling patient: Time with patient: less than 15 minutes Exam GI: Inspection: normal to inspection, Pannus present and obesity Auscultation: other (wound cdi)
--- NOTE | 2022-04-04 08:41 | WPDANLDNPN2 ---
Anes-Prog Note L&D-Neuraxial Date/Time: 04/04/22 08:41 Patient feedback: Patient satisfied with post-operative pain management.
--- NOTE | 2022-04-04 08:42 | WPDANLDPN2 ---
Anes-Prog Note L&D Date/Time: 04/04/22 08:42 Neuro status: Neuro function grossly intact. Vital Signs: Last Vital Signs Temp 36.6 C 04/03/22 20:00 Pulse 89 04/03/22 20:00 Resp 16 04/03/22 20:00 BP 120/47 L 04/03/22 20:00 Pulse Ox 98 04/03/22 15:00 O2 Del Method Room Air 04/03/22 20:00 Pain score (VAS): 0 Patient feedback: Patient satisfied with anesthetic care.
[2022-04-04 08:45] VITALS: BP 125/60; PULSE 85; RESP 18; TEMP 37.1; O2SAT 99
[2022-04-04 09:00] VITALS: PULSE 85; RESP 18; O2SAT 99
[2022-04-04] MEDS: POLYSACCHARIDE IRON COMPLEX 150 MG CAPSULE PO ×2 (09:42→16:57)
[2022-04-04] MEDS: DOCUSATE SODIUM 100 MG CAPSULE PO ×2 (09:43→16:58)
[2022-04-04] MEDS: MULTIVIT/MIN/PREN/FOL AC/IRON TABLET 1 TAB PO (09:44)
[2022-04-04] MEDS: ENOXAPARIN 60 MG/0.6 ML SYRINGE SUB-Q ×2 (09:45→20:35)
--- NOTE | 2022-04-04 13:19 | PC.NURSE ---
[id number] Introductions were made, then consulted with patient to assess needs related to . Mother led the conversation with her experience feeding her so far. Mother works well with her with encouragement and education. Encouraged understanding of the benefits of skin to skin (unwrapping and placing vertically on her chest), responsive feeding and how to watch for early feeding signs, frequency of feeding on demand about every 8-12 times in 24 hours (every 2-3 hours), milk production, duration of feeding, signs of adequate intake/output and how to record on the feeding sheet. Reviewed positioning and ear, shoulder, hip alignment, supporting the breast, asymmetrical latch (off-center), and leading with the chin with a big open side gape. Infant latched optimally to the right for 10-15 min, then left breast in football position. Education given to mother of how to visualize suck/swallow ratios and drinking at the breast. Infant swallows but has a > than 4:1 suck swallow ratio. Mother has recently pumped her right breast and pumped 5mls. Infant was able to maintain latch without discomfort to mother. Nipple care reviewed with optimal latch and good positioning. Discussed the plan of care as it pertains to infant EGA of 37 weeks, jaundice levels, and weight loss. ICP has ordered to be supplemented with bililights at this time. Resources used to facilitate learning were used with the visual handouts/mom and baby guide. Mother voiced understanding of responsive feedings, stimulating with skin to skin, hand expressed colostrum, touch, talking to to encourage if it has been 2 -3 hours since the start of the last , to call if does not latch or there is discomfort with . Reported to the primary RN.
--- NOTE | 2022-04-04 13:33 | PC.NURSE ---
1100-Breast pump provided prior to RN shift due to mothers request to stimulate milk production. Pt had a cousin recommend pumping every hour but she had not initiated that plan as of now. Mother voiced she had just finished pumping 5 mls. Instructions given on cleaning, care, usage, that there should be no pain, pumping schedule for milk production, collection, and storage of human milk. Parents are encouraged to record pumping schedule on the feeding sheet. Education reviewed regarding stimulating for adequate milk production every 3 hours (8 times in 24 hours). Mother voiced understanding of the education shared along with mom and baby guide for additional resource information. Reported to the primary RN.
[2022-04-04] MEDS: SIMETHICONE 80 MG TAB.CHEW PO ×2 (13:50→16:59)
[2022-04-04 17:12] VITALS: BP 122/68; PULSE 88; RESP 16; TEMP 37; O2SAT 98
[2022-04-04] MEDS: METHYLERGONOVINE MALEATE 0.2 MG/ML VIAL IM (17:52)
[2022-04-04 19:10] VITALS: BP 113/53; PULSE 85; RESP 14; TEMP 36.9
[2022-04-05] MEDS: SIMETHICONE 80 MG TAB.CHEW PO (05:43)
[2022-04-05] MEDS: HYDROcodone/acetaminophen (*CRX) 5-325 MG TABLET 1 TAB PO (05:43)
--- NOTE | 2022-04-05 06:51 | PM.DS ---
DS: Admitting Diagnosis Discharge Date Admitting Diagnosis term /previous section DS: Discharge Diagnosis Discharge Diagnosis (1) Morbid obesity with BMI of 50.0-59.9, adult: Code(s): E66.01 - Morbid (severe) obesity due to excess calories; Z68.43 - Body mass index [BMI] 50.0-59.9, adult Status: Acute (2) History of pulmonary embolism: Code(s): Z86.711 - Personal history of pulmonary embolism Status: Acute (3) Previous section: Code(s): Z98.891 - History of uterine scar from previous surgery Status: Acute (4) Morbid obesity: Code(s): E66.01 - Morbid (severe) obesity due to excess calories Status: Acute (5) Term : Code(s): Z34.90 - Encounter for supervision of normal , unspecified, unspecified trimester Status: Acute DS: Summary Hospital Course Reason for hospitalization: repeat section Hospital Course: patient was admitted for repeat section at 37 half weeks gestation. Her been complicated by being a late transfer, having history of pulmonary embolism with her previous delivery. She had been on Lovenox 70mg twice a day and was not taking that for approximately 7 weeks. I saw her as a walk-in and we read and stated that medication. She was transition to heparin week prior to her delivery. She underwent low-transverse section which was unremarkable. Her hospital course was unremarkable. She remained afebrile. She was up, voiding without difficulty, ambulating, generally without complaints. She was to continue with Lovenox 70mg twice a day. She is to follow-up in 2 weeks I am. The Time spent discussing smoking cessation with patient: more than 10 minutes Time Spent with Patient Time attestation: Total time spent providing and/or coordinating discharge services: Discharge Plan Discharge Attending physician on discharge: Felipe Edmonds Discharging Clinician: eFlipe Edmonds Patient Disposition: Home, Self-Care Activity: may shower, no straining, may drive after 2 weeks and pelvic rest Diet: heart healthy Wound Care Instructions: follow printed instructions Patient Instructions: Antibiotic Form Stand Alone Forms: General Discharge Information Follow-up/Referrals: Felipe Edmonds MD [Physician] - Discharge Medications: New hydrocodone-acetaminophen 5-325 mg tablet 1 tablet PO Q4H PRN (Reason: pain) Qty: 30 0RF Discontinued heparin (porcine) 5,000 unit/mL solution 5,000 unit subcut DAILY No Action albuterol sulfate 90 mcg/actuation HFA aerosol inhaler 2 puff INHALATION Q4H PRN (Reason: Shortness Of Breath) enoxaparin 80 mg/0.8 mL syringe 70 mg subcut BID ondansetron 4 mg Tablet,Disintegrating 4 mg PO Q8H PRN (Reason: Nausea) Qty: 30 0RF acetaminophen [Tylenol] 325 mg Capsule 1,000 mg PO Q8H PRN (Reason: Headache) yfapuprcuf-sydjkybmcngkb-ardl [Fioricet] 50-300-40 mg capsule 1 cap PO Q6H PRN (Reason: pain) Qty: 30 0RF Date of admission: 04/02/22 04:53 Primary Care Provider: PHYSICIAN,CHROME TANNING DRUM OPERATOR Admitting Provider: Felipe Edmonds Attending physician on admission: Felipe Edmonds Condition: Stable
--- NOTE | 2022-04-05 06:55 | PM.OBPNVD ---
OB - PN: Subj Subjective Date/time seen: 04/05/22 06:55 Patient comments: no complaints and pain well controlled baby status: doing well and nursing well OB - PN: Obj Data Labs CBC & Chem 7: 04/03/22 04:40 04/02/22 05:34 OB - PN A/P Assessment and Plan (1) Morbid obesity with BMI of 50.0-59.9, adult: Code(s): E66.01 - Morbid (severe) obesity due to excess calories; Z68.43 - Body mass index [BMI] 50.0-59.9, adult Status: Acute (2) History of pulmonary embolism: Code(s): Z86.711 - Personal history of pulmonary embolism Status: Acute (3) Previous section: Code(s): Z98.891 - History of uterine scar from previous surgery Status: Acute (4) Postoperative pain: Code(s): G89.18 - Other acute postprocedural pain Status: Acute (5) Term : Code(s): Z34.90 - Encounter for supervision of normal , unspecified, unspecified trimester Status: Acute Plan day: 3 Plan: routine care, discharge home and follow up 6 weeks (2 weeks) Time Spent With Patient Time: Total time spent is greater than 50% in coordination of care (as documented) at patient's floor/unit and/or counseling patient: Time with patient: less than 15 minutes
[2022-04-05 08:45] VITALS: BP 144/71; PULSE 83; RESP 18; TEMP 36.8; O2SAT 98
[2022-04-05] MEDS: POLYSACCHARIDE IRON COMPLEX 150 MG CAPSULE PO (08:49)
[2022-04-05] MEDS: ENOXAPARIN 60 MG/0.6 ML SYRINGE SUB-Q (08:49)
[2022-04-05] MEDS: DOCUSATE SODIUM 100 MG CAPSULE PO (08:49)
[2022-04-05] MEDS: MULTIVIT/MIN/PREN/FOL AC/IRON TABLET 1 TAB PO (08:49)
[2022-04-05] MEDS: TETANUS,DIPHTHERIA,AC PERTUSSIS ADULT (0.5 ML) BOOSTRIX IM (11:41)
--- NOTE | 2022-04-05 15:21 | PC.NURSE ---
Morning report was mother was pumping and feeding breastmilk in a bottle and supplementing with formula as needed.
--- NOTE | 2022-04-08 18:18 | PM.IMHP ---
H&P: HPI History of Present Illness Date/Time: 04/08/22 18:18 Chief Complaint: here for repeat section PMFSH Past Medical History Medical History (Updated 04/02/22 @ 07:00 by Rik Ball MD) History of pulmonary embolism Morbid obesity with BMI of 50.0-59.9, adult Surgical History Surgical History (Updated 04/02/22 @ 07:00 by Rik Ball MD) Previous section Social History Social History Smoking status: Never smoker Second hand tobacco smoke exposure: No Substance use: former Last use: February 2021 Spiritual care concerns: No Meds Home Medications and Allergies Home Medications Medication Instructions Recorded Confirmed Type albuterol sulfate 90 mcg/actuation 2 puff inhalation Q4H PRN 01/30/22 04/02/22 History aerosol inhaler Shortness Of Breath enoxaparin 80 mg/0.8 mL 70 mg subcut BID 01/30/22 04/02/22 History subcutaneous syringe ondansetron 4 mg disintegrating 4 mg PO Q8H PRN Nausea #30 tabs 01/30/22 04/02/22 Rx tablet acetaminophen 325 mg capsule 1,000 mg PO Q8H PRN Headache 02/23/22 04/02/22 History (Tylenol) jtbioiumri-prwiajrplripg-nstwngrn 1 cap PO Q6H PRN pain #30 caps 02/23/22 04/02/22 Rx 50 mg-300 mg-40 mg capsule (Fioricet) hydrocodone 5 mg-acetaminophen 325 1 tablet PO Q4H PRN pain #30 tabs 04/02/22 Rx mg tablet Allergies Allergy/AdvReac Type Severity Reaction Status Date / Time No Known Allergies Allergy Verified 01/30/22 14:53
== END 2022-04-05 12:15 | disposition home or self-care (01) | DRG 540 ==
LOC: ANHLDR 04:58 → ANHOB2 12:20
PROVIDERS: Admitting Provider Obstetrics & Gynecology; Visit Provider Obstetrics & Gynecology
PROC: 10D00Z1 Extraction of Products of Conception, Low, Open Approach (ICD-10-PCS; CPT 59514; principal; 2022-04-02 07:30)
DX: O34.211 Maternal care for low transverse scar from previous cesarean delivery (principal); Z37.0 Single live birth; Z3A.37 37 weeks gestation of pregnancy; O99.824 Streptococcus B carrier state complicating childbirth; O99.892 Other specified diseases and conditions complicating childbirth; Z87.59 Personal history of other complications of pregnancy, childbirth and the puerperium; Z86.711 Personal history of pulmonary embolism; Z86.16 Personal history of COVID-19; O99.214 Obesity complicating childbirth; E66.01 Morbid (severe) obesity due to excess calories
CPT/HCPCS: 36415; 80053; 80307; 84550; 85025; 86592; 86703; 86850; 86900; 86901; 90715; A9270; G0432; J0131; J0690; J1100; J1200; J1650; J1885; J2210; J2274; J2370; J2405; J2590; J7120

== ENCOUNTER 2023-03-02 19:01 | Observation (INO) | payer OTHER, SELFPAY ==
[2023-03-02 19:04] VITALS: BP 164/59; PULSE 82; RESP 18; TEMP 36.6; O2SAT 100
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
--- NOTE | 2023-03-02 20:09 | OBADM ---
This patient, Celia Xavier, admitted to the OB room Labor/Delivery/Recovery 118 for observation. Patient/family oriented to hospital policies and general routines including ID bracelet, bed and alarms, visiting hours, pain management, procedures, bathroom and other care routines, personal items, smoking policy, room service/diet, and visiting hours. Patient/Family are encouraged to report perceived risks to care and to ask questions if they do not understand what they are told or what they should do.
[2023-03-02 20:25] VITALS: BMI 51.1
[2023-03-02 20:41] VITALS: BP 124/105; PULSE 90; TEMP 36.8
[2023-03-02 20:47] VITALS: BP 127/45; PULSE 84
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
[2023-03-02 21:02] VITALS: BP 123/69; PULSE 87
--- NOTE | 2023-03-02 21:10 | PC.NURSE ---
Discharge instructions reviewed with patient. Labor precautions reviewed. Patient instructed to follow up as scheduled. Patient instructed to take home medications as prescribed. Patient states understanding of discharge instructions and denies questions. RN offered to escort patient to ED for evaluation of soreness in hip, patient declines ED evaluation and states she wants to go home without ED evaluation. Patient left OB unit ambulating without complaint at 2110.
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
== END 2023-03-02 21:10 | disposition home or self-care (01) ==
LOC: ANHED 19:20 → ANHLDR 20:19
PROVIDERS: Admitting Provider Obstetrics & Gynecology; Emergency Provider Obstetrics & Gynecology; Visit Provider Obstetrics & Gynecology
DX: Z04.1 Encounter for examination and observation following transport accident (principal)
CPT/HCPCS: G0378; G0379

== ENCOUNTER 2023-03-09 21:49 | Emergency (ER) | payer OTHER, SELFPAY ==
[2023-03-09 21:57] VITALS: BP 115/62; PULSE 84; RESP 18; TEMP 36.7; O2SAT 100
--- NOTE | 2023-03-09 22:56 | ED.GENADULT ---
HPI - General Adult General Chief complaint: Abdominal Pain Stated complaint: N/V, abd pain, fall, 22 weeks preg Time Seen by Provider: 03/09/23 22:24 History of Present Illness HPI narrative: Patient 19-year-old female who presents the emergency department with chief complaint of nausea and vomiting patient is currently approximately 22 weeks and has had multiple family members that have had gastroenteritis. Patient reports she has been having nausea and vomiting patient states that she also has been very weak and rundown since she has had multiple bouts of vomiting. Patient states that she slipped and fell and landed on a step with her left butt cheek and reports that there is a bruise present the patient reports no abdominal contusion patient does report that she had some cramping and discomfort in her abdomen particular whenever she vomits Related Data Home Medications Medication Instructions Recorded Confirmed albuterol sulfate 90 mcg/actuation 2 puff inhalation Q4H PRN 01/30/22 04/02/22 aerosol inhaler Shortness Of Breath enoxaparin 80 mg/0.8 mL 70 mg subcut BID 01/30/22 04/02/22 subcutaneous syringe acetaminophen 325 mg capsule 1,000 mg PO Q8H PRN Headache 02/23/22 04/02/22 (Tylenol) Allergies Allergy/AdvReac Type Severity Reaction Status Date / Time No Known Allergies Allergy Verified 01/30/22 14:53 Review of Systems Review of Systems: A 10 system review of systems was completed on the patient and is negative except for what is stated in the HPI. Nursing and ancillary documentation was reviewed. [facility] Past Medical History Medical History History of pulmonary embolism Morbid obesity with BMI of 50.0-59.9, adult Surgical History Surgical History Previous section Social History Social History Smoking status: Never smoker Second hand tobacco smoke exposure: No Substance use: former Last use: February 2021 Spiritual care concerns: No Exam Narrative: GENERAL: Well-appearing, well-nourished, and in no acute distress. HEAD: Normocephalic, atraumatic. EYES: PERRLA and EOMI. ENT: Nares clear, no rhinorrhea or epistaxis. Mucous membranes moist. NECK: Supple. CHEST: Clear to auscultation. No respiratory distress. HEART: Regular rate and rhythm. No murmur heard. Normal peripheral pulses. ABDOMEN: Soft, nontender, nondistended, normal active bowel sounds. EXTREMITIES: Normal range of motion. No edema. SKIN: Warm, dry, no rash. There is a bruise present to the left gluteal region NEURO: No focal deficits. Alert and oriented x3. PSYCH: Normal mood and affect. Course Vital Signs Vital signs: Vital Signs Temperature 36.7 C 03/09/23 21:57 Pulse Rate 84 03/09/23 21:57 Respiratory Rate 18 03/09/23 21:57 Blood Pressure 115/62 03/09/23 21:57 Pulse Oximetry 100 03/09/23 21:57 Oxygen Delivery Room Air 03/09/23 21:57 Temperature 36.7 C 03/09/23 21:57 Pulse Rate 84 03/09/23 21:57 Respiratory Rate 18 03/09/23 21:57 Blood Pressure 115/62 03/09/23 21:57 Pulse Oximetry 100 03/09/23 21:57 Oxygen Delivery Room Air 03/09/23 21:57 Medical Decision Making MDM Narrative Medical decision making narrative: Differential diagnosis includes gastroenteritis, viral syndrome, vomiting of , dehydration, UTI Laboratory studies were obtained and the patient which showed a white count of 9.6 hemoglobin was 8.7 this is improved from the previous hemoglobin. Electrolytes showed a potassium of 3.4 normal creatinine lipase was 32 and liver enzymes are within normal limits. Urinalysis showed +1 protein and +1 ketones the patient is normotensive in the emergency department with a pressure of 115/62 Patient received IV fluids and antiemetics in the em
[2023-03-09] MEDS: METOCLOPRAMIDE HCL INJ 10 MG/2 ML VIAL IV PUSH (23:20)
[2023-03-09] MEDS: SODIUM CHLORIDE 0.9% IV 1,000 ML 999 ML IV CONT (23:29)
[2023-03-09 23:33] LABS: Basophils Percent Auto 0.3 % (0.2-1.2); Eosinophils Absolute Auto 0.1 K/mm3 (0-0.3); Eosinophils Percent Auto 0.6 % (0-4.4); Hematocrit 29.6 % (37.0-47.0); Hemoglobin 8.7 g/dL (12.0-15.0); Immature Granulocyte Absolute 0.08 K/mm3 (0.00-0.031); Immature Granulocyte Percent A 0.8 % (0-0.5); Lymphocytes Absolute Auto 0.74 K/mm3 (0.9-3.2); Lymphocytes Percent Auto 7.7 % (18.3-44.2); Mean Corpuscular HGB Conc 29.4 g/dl (32-36); Mean Corpuscular Volume 74.7 fl (80-100); Mean Platelet Volume 10.8 fl (7.4-10.4); Monocytes Absolute Auto 0.5 K/mm3 (0.1-0.6); Monocytes Percent Auto 4.7 % (2.6-8.5); Neutrophils Absolute Auto 8.3 K/mm3 (1.3-6.7); Neutrophils Percent Auto 85.9 % (45.5-73.1); Platelet Count Result 253 k/mm3 (150-375); Red Blood Count 3.96 M/mm3 (4.2-5.4); Red Cell Distribution Width 19.8 % (11.5-14.5); White Blood Count 9.6 K/mm3 (4.5-10.0)
[2023-03-09 23:46] LABS: Alanine Aminotransferase 12 U/L (6-35); Albumin Level 3.4 g/dL (3.5-5.1); Alkaline Phosphatase 68 U/L (38-126); Anion Gap 5 mmol/L (8-16); Aspartate Amino Transferase 19 U/L (14-36); Bilirubin,Total 0.5 mg/dL (0.2-1.3); Blood Urea Nitrogen 7 mg/dL (7-17); Calcium 7.7 mg/dL (8.4-10.2); Carbon Dioxide 24 mmol/L (22-30); Chloride 105 mmol/L (98-107); Estimated CRCL calculation 195 ml/min; Estimated Glomerular Filt Rate > 60; Glucose 89 mg/dL (65-110); Lipase 32 U/L (23-300); Potassium 3.4 mmol/L (3.4-5.0); Sodium 134 mmol/L (137-145)
[2023-03-09 23:47] LABS: Appearance Urine Cloudy (Clear); Bacteria Urine None Seen /hpf; Bilirubin Urine Negative (Negative); Blood Urine Negative (Negative); Color Urine Yellow (Yellow); Glucose Urine UA Negative (Negative); Ketones Urine 1+ mg/dL (Negative); Leukocyte Esterase Ur Negative LEU/UL (Negative); Need Manual Microscopic Reviewed; Nitrate Urine Negative (Negative); Non Pathogenic Casts 0-2; Protein Urine 1+ mg/dL (Negative); RBC Urine 0-2 /hpf (0-2); Specific Grav Ur 1.025 (1.001-1.035); Squamous Epithelial Cell Urine Moderate /hpf (Few); WBC Urine 0-5 /hpf
[2023-03-09 23:49] LABS: Add Urine Microscopic? YES
[2023-03-10 00:05] LABS: Platelet Estimate Adequate (Adequate)
[2023-03-10 00:06] LABS: Anisocytosis 1+ (NORMAL); Hypochromasia 1+ (NORMAL); Schistocytes None Seen (NORMAL)
[2023-03-10] MEDS: ONDANSETRON INJ 4 MG/2 ML VIAL IV PUSH (02:06)
== END 2023-03-10 02:00 | disposition home or self-care (01) ==
PROVIDERS: Physician Assistant; Emergency Provider Emergency Medicine
DX: O21.9 Vomiting of pregnancy, unspecified (principal); O9A.212 Injury, poisoning and certain other consequences of external causes complicating pregnancy, second trimester; S30.0XXA Contusion of lower back and pelvis, initial encounter; O99.212 Obesity complicating pregnancy, second trimester; E66.01 Morbid (severe) obesity due to excess calories; Z86.711 Personal history of pulmonary embolism; Z3A.22 22 weeks gestation of pregnancy; W01.198A Fall on same level from slipping, tripping and stumbling with subsequent striking against other object, initial encounter
CPT/HCPCS: 36415; 80053; 81001; 83690; 85025; 96361; 96374; 99284; J2405; J2765; J7030

== ENCOUNTER 2023-05-16 13:15 | Observation (INO) | payer OTHER, SELFPAY ==
[2023-05-16 13:46] VITALS: BP 131/65; PULSE 88
[2023-05-16 14:01] VITALS: BP 143/112; PULSE 87
[2023-05-16 14:18] VITALS: BP 147/66; PULSE 91
[2023-05-16 14:43] VITALS: BMI 52.4
--- NOTE | 2023-05-16 15:11 | PC.NURSE ---
1420: Patient reports that yesterday afternoon she went to the bathroom to urinate she saw blood on her toilet paper while she was wiping. She got concerned and called the paramedics. Upon arrival and assessment the benefits advisor told her that she was having bloody discharge . They wanted to bring the patient to the hospital, but patient refused. Patient reports no bright bleeding since then. Patient further reports that this morning when she wiped she saw brownish discharge. She called her OB (Dr. May's office) at 0800. She went on to work and noticed clear discharge. Dr. Ton Palacio's office called her back after noon and asked her to come to the pavilion for an evaluation. She went on to work and noticed clear discharge, got concerned, and came to the hospital Upon assessment, no vaginal bleeding was noted. NST was reactive. Patient thinks she may be dehydrated because she has been out in the sun for two day and has had poor hydration. Dr. May notified of assessment. Per Dr. May patient ok to go home with instructions to not engage in sexual activities for two-three days and see OB next week on Friday.
[2023-05-16 15:25] VITALS: BP 147/66; PULSE 87
--- NOTE | 2023-05-21 06:25 | PM.OBTRLD ---
OB - Triage/Final Diagnosis Visit Information Reason for evaluation: threatened labor Comments/Additional reasons for admission: I have assessed the risk for this patient, Celia Xavier, and determined that she would benefit from observation care.
== END 2023-05-16 15:11 | disposition home or self-care (01) ==
PROVIDERS: Admitting Provider Obstetrics & Gynecology; Visit Provider Obstetrics & Gynecology
DX: O47.03 False labor before 37 completed weeks of gestation, third trimester (principal); Z3A.32 32 weeks gestation of pregnancy
CPT/HCPCS: 59025; G0379

== ENCOUNTER 2023-06-06 13:19 | Observation (INO) | payer OTHER, SELFPAY ==
[2023-06-06] VITALS (9 sets, daily range): BP systolic 113; BP diastolic 50; PULSE 82–97; TEMP 36.6; O2SAT 98–100; BMI 53.1
[2023-06-06 14:29] LABS: Appearance Urine Cloudy (Clear); Bacteria Urine Rare /hpf; Bilirubin Urine Negative (Negative); Blood Urine Trace (Negative); Color Urine Yellow (Yellow); Glucose Urine UA Negative (Negative); Ketones Urine Trace mg/dL (Negative); Leukocyte Esterase Ur Trace LEU/UL (Negative); Nitrate Urine Negative (Negative); Non Pathogenic Casts 0-2; Protein Urine Negative (Negative); Specific Grav Ur 1.017 (1.001-1.035); Squamous Epithelial Cell Urine Many /hpf (Few); WBC Urine 0-5 /hpf; pH Urine 7.5 (5.0-9.0)
[2023-06-06 14:41] LABS: Add Urine Microscopic? YES
--- NOTE | 2023-06-10 00:01 | PM.OBTRLD ---
OB - Triage/Final Diagnosis Visit Information Date of evaluation: 06/09/23 Reason for evaluation: threatened labor Comments/Additional reasons for admission: I have assessed the risk for this patient, Celia Xavier, and determined that she would benefit from observation care. Evaluation Laboratory results: Laboratory Tests 06/06/23 14:02 Urine Color Yellow Urine Appearance Cloudy H Urine pH 7.5 Ur Specific [place] 1.017 Urine Protein Negative Urine Glucose (UA) Negative Urine Ketones Trace H Ur Blood (Man) Trace Urine Nitrate Negative Urine Bilirubin Negative Urine Urobilinogen 1.0 Leukocyte Esterase Rfl Trace H Urine RBC 6-10 H Urine WBC 0-5 Ur Squamous Epith Cells Many H Urine Bacteria Rare Urine Casts 0-2
== END 2023-06-06 15:12 | disposition home or self-care (01) ==
PROVIDERS: Admitting Provider Obstetrics & Gynecology; Visit Provider Obstetrics & Gynecology
DX: O47.03 False labor before 37 completed weeks of gestation, third trimester (principal); Z3A.35 35 weeks gestation of pregnancy
CPT/HCPCS: 81001; G0378; G0379

== ENCOUNTER 2023-06-11 10:54 | Outpatient (RCR) | payer OTHER, SELFPAY ==
--- NOTE | ~2023-06-11 | US_ITS ---
EXAMINATION: US OB BPP wo non-stress DATE: 06/11/2023 12:32 INDICATION: Decreased movement. Third trimester. TECHNIQUE: Real-time pelvic ultrasound was performed. COMPARISON: None. FINDINGS: There is a single living fetus in breech presentation. The placenta is posterior. heart rate i s 149 beats per minute (bpm). The deepest vertical pocket of amniotic fluid is 8.6 cm. Biophysical profile performed by the technologist: breathing (30 sec sustained breathing in 30 minutes): 2 out of 2 movement (3 gross body movements in 30 minutes): 2 out of 2 tone (one episode of tbpvdhk-vdfrzecpc-srigyxn limb movement): 2 out of 2 Amniotic fluid pocket (2 cm): 2 out of 2 Total score: 8 out of 8 IMPRESSION: 1. Single living fetus in breech presentation. 2. Biophysical profile 8 out of 8. Reviewed, dictated and finalized at location A.
[2023-06-11 11:31] VITALS: BP 138/81; PULSE 90
[2023-06-11 11:46] VITALS: BP 131/71; PULSE 90
[2023-06-11 14:47] VITALS: BP 138/81; PULSE 90
--- NOTE | 2023-06-19 07:23 | PM.IMHP ---
H&P: HPI History of Present Illness Date/Time: 06/19/23 07:23 Chief Complaint: Term /use of anticoagulants Narrative: This is a 85-vkib-nxn2 4 para 3 whose last menstrual period 10/10/2022, EDC is 07/10/2023, confirmed by early ultrasound who presents at 38 weeks gestation for repeat section. She has a history of pulmonary embolism and hepatitis C. she has been on Lovenox 80mg to her and then has been changed to heparin b.i.d. 2 weeks prior to delivery. She stopped her heparin 1 day before. She has had previous section. She is anemic and on accurate for or. She is positive for group B strep. [facility] Past Medical History Medical History History of pulmonary embolism Morbid obesity with BMI of 50.0-59.9, adult Surgical History Surgical History Previous section Social History Social History Smoking status: Never smoker Second hand tobacco smoke exposure: No Substance use: former Last use: February 2021 Spiritual care concerns: No Meds Home Medications and Allergies Home Medications Medication Instructions Recorded Confirmed Type albuterol sulfate 90 mcg/actuation 2 puff inhalation Q4H PRN 01/30/22 05/16/23 History aerosol inhaler Shortness Of Breath enoxaparin 30 mg/0.3 mL 30 mg subcut Q12H 05/16/23 05/16/23 History subcutaneous syringe (Lovenox) ferric maltol 30 mg capsule 30 mg PO BID 05/16/23 05/16/23 History (Accrufer) vit no.95-ferrous 1 tablet PO DAILY 05/16/23 05/16/23 History fumarate 28 mg-folic acid 800 mcg tablet () Allergies Allergy/AdvReac Type Severity Reaction Status Date / Time No Known Allergies Allergy Verified 01/30/22 14:53 Exam Const: General: cooperative, comfortable and obese Orientation/consciousness: oriented to person, oriented to place and oriented to time HENMT: Head: normal to inspection Resp: Effort & Inspection: normal respiratory effort Cardio: Rate: regular rate Rhythm: regular rhythm Heart sounds: S1 normal heart sound present and S2 normal heart sound present GI: Inspection: obesity Auscultation: normal bowel sounds : External Female Exam: normal external appearance Speculum Exam - Vagina: normal appearance of the vagina Speculum Exam - Cervix: normal appearance of the cervix Assessment and Plan Assessment and plan (1) History of pulmonary embolism: Code(s): Z86.711 - Personal history of pulmonary embolism Status: Acute (2) Morbid obesity with BMI of 50.0-59.9, adult: Code(s): E66.01 - Morbid (severe) obesity due to excess calories; Z68.43 - Body mass index [BMI] 50.0-59.9, adult Status: Acute (3) Previous section: Code(s): Z98.891 - History of uterine scar from previous surgery Status: Acute (4) Term : Code(s): Z34.90 - Encounter for supervision of normal , unspecified, unspecified trimester Status: Acute Plan Repeat low-transverse section. Resume anticoagulation .
== END 2023-08-14 10:49 | disposition home or self-care (01) ==
LOC: ANHOBOP 10:54
PROVIDERS: Visit Provider Obstetrics & Gynecology
DX: O36.8130 Decreased fetal movements, third trimester, not applicable or unspecified (principal); Z3A.35 35 weeks gestation of pregnancy
CPT/HCPCS: 59025; 76819

== ENCOUNTER 2023-06-24 09:51 | Inpatient (IN) | payer OTHER, SELFPAY ==
--- NOTE | 2023-06-19 07:27 | HP_ITS ---
This report was moved to the correct visit on 06/24/2023. Original report was signed by Felipe Edmonds MD on 06/19/23 0270. H&P: HPI History of Present Illness Date/Time: 06/19/23 07:23 Chief Complaint: Term /use of anticoagulants Narrative: This is a 58-kyjb-smq1 4 para 3 whose last menstrual period 10/10/2022, EDC is 07/10/2023, confirmed by early ultrasound who presents at 38 weeks gestation for repeat section. She has a history of pulmonary embolism and hepatitis C. she has been on Lovenox 80mg to her and then has been changed to heparin b.i.d. 2 weeks prior to delivery. She stopped her heparin 1 day before. She has had previous section. She is anemic and on accurate for or. She is positive for group B strep. [facility] Past Medical History Medical History History of pulmonary embolism Morbid obesity with BMI of 50.0-59.9, adult Surgical History Surgical History Previous section Social History Social History Smoking status: Never smoker Second hand tobacco smoke exposure: No Substance use: former Last use: February 2021 Spiritual care concerns: No Meds Home Medications and Allergies Home Medications Medication Instructions Recorded Confirmed Type albuterol sulfate 90 mcg/actuation 2 puff inhalation Q4H PRN 01/30/22 05/16/23 History aerosol inhaler Shortness Of Breath enoxaparin 30 mg/0.3 mL 30 mg subcut Q12H 05/16/23 05/16/23 History subcutaneous syringe (Lovenox) ferric maltol 30 mg capsule 30 mg PO BID 05/16/23 05/16/23 History (Accrufer) vit no.95-ferrous 1 tablet PO DAILY 05/16/23 05/16/23 History fumarate 28 mg-folic acid 800 mcg tablet () Allergies Allergy/AdvReac Type Severity Reaction Status Date / Time No Known Allergies Allergy Verified 01/30/22 14:53 Exam Const: General: cooperative, comfortable and obese Orientation/consciousness: oriented to person, oriented to place and oriented to time HENMT: Head: normal to inspection Resp: Effort & Inspection: normal respiratory effort Cardio: Rate: regular rate Rhythm: regular rhythm Heart sounds: S1 normal heart sound present and S2 normal heart sound present GI: Inspection: obesity Auscultation: normal bowel sounds : External Female Exam: normal external appearance Speculum Exam - Vagina: normal appearance of the vagina Speculum Exam - Cervix: normal appearance of the cervix Assessment and Plan Assessment and plan (1) History of pulmonary embolism: Code(s): Z86.711 - Personal history of pulmonary embolism Status: Acute (2) Morbid obesity with BMI of 50.0-59.9, adult: Code(s): E66.01 - Morbid (severe) obesity due to excess calories; Z68.43 - Body mass index [BMI] 50.0-59.9, adult Status: Acute (3) Previous section: Code(s): Z98.891 - History of uterine scar from previous surgery Status: Acute (4) Term : Code(s): Z34.90 - Encounter for supervision of normal , unspecified, unspecified trimester Status: Acute Plan Repeat low-transverse section. Resume anticoagulation . This report may have been done utilizing a voice recognition system. Attempts have been made to correct errors. However, there may be uncorrected grammatical, spelling, and recognition errors present. Report Initi
[2023-06-24] VITALS (40 sets, daily range): BP systolic 87–121; BP diastolic 36–60; PULSE 60–124; RESP 13–20; TEMP 36.1–36.7; O2SAT 95–100; BMI 52.2
--- NOTE | 2023-06-24 06:23 | WPDHPUPDATE1 ---
History and Physical Update Update Date/Time: 06/24/23 06:23 History and Physical has been reviewed, including an updated exam of the patient. There are NO changes in the patient's condition. Risks, benefits, and alternatives have been discussed and questions answered. Patient agrees to proceed with procedure.
--- NOTE | 2023-06-24 09:51 | LDADM ---
This patient, Celia Xavier, was admitted to Labor/Delivery/Recovery 119 on 06/24/23 at 09:51. Plans for labor, pain management and were discussed with patient. Patient/family oriented to hospital policies and general routines including ID bracelet, bed and alarms, visiting hours, pain management, procedures, bathroom and other care routines, personal items, smoking policy, room service/diet and guest tray routines, security routines, and visiting hours. Patient/Family are encouraged to report perceived risks to care and to ask questions if they do not understand what they are told or what they should do. See [facility] for further documentation.
[2023-06-24] MEDS: LACTATED RINGERS 1,000 ML 125 ML IV CONT ×2 (10:45→12:43)
[2023-06-24 10:56] LABS: Basophils Absolute Auto 0.1 K/mm3 (0.0-0.1); Basophils Percent Auto 0.6 % (0.2-1.2); Eosinophils Absolute Auto 0.3 K/mm3 (0-0.3); Eosinophils Percent Auto 2.5 % (0-4.4); Hematocrit 28.8 % (37.0-47.0); Hemoglobin 8.1 g/dL (12.0-15.0); Immature Granulocyte Absolute 0.23 K/mm3 (0.00-0.031); Immature Granulocyte Percent A 2.2 % (0-0.5); Mean Corpuscular HGB Conc 28.1 g/dl (32-36); Mean Corpuscular Hemoglobin 20.5 pg (26-34); Mean Corpuscular Volume 72.9 fl (80-100); Mean Platelet Volume 11.2 fl (7.4-10.4); Monocytes Absolute Auto 0.7 K/mm3 (0.1-0.6); Monocytes Percent Auto 6.4 % (2.6-8.5); Neutrophils Absolute Auto 7.3 K/mm3 (1.3-6.7); Neutrophils Percent Auto 69.3 % (45.5-73.1); Nucleated Red Blood Cells Perc 0.2 % (0.0-0.2); Platelet Count Result 276 k/mm3 (150-375); Red Blood Count 3.95 M/mm3 (4.2-5.4); Red Cell Distribution Width 19.3 % (11.5-14.5); White Blood Count 10.6 K/mm3 (4.5-10.0)
--- NOTE | 2023-06-24 10:57 | WPDANESEPP ---
Anes - Eval Pre Procedure Procedure: Operation Date: 06/24/23 12:00 Proposed Procedures p Repeat Section - Felipe Palacio MD Date/Time: 06/24/23 10:57 Surgeon: Ton Palacio Preop Diagnosis: previous Pre Op Diagnosis: C/S Patient Data Age: 27 Gender: F Height: 1.65 m Weight: 142.5 kg Allergies Allergy/AdvReac Type Severity Reaction Status Date / Time No Known Allergies Allergy Verified 01/30/22 14:53 Home Medications Medication Instructions Recorded Confirmed Type albuterol sulfate 90 mcg/actuation 2 puff inhalation Q4H PRN 01/30/22 05/16/23 History aerosol inhaler Shortness Of Breath enoxaparin 30 mg/0.3 mL 30 mg subcut Q12H 05/16/23 05/16/23 History subcutaneous syringe (Lovenox) ferric maltol 30 mg capsule 30 mg PO BID 05/16/23 05/16/23 History (Accrufer) vit no.95-ferrous 1 tablet PO DAILY 05/16/23 05/16/23 History fumarate 28 mg-folic acid 800 mcg tablet () hydrocodone 5 mg-acetaminophen 325 1 tablet PO Q4H PRN pain #30 tabs 06/24/23 Rx mg tablet Laboratory Tests 06/24/23 10:48 WBC Pending RBC Pending Hgb Pending Hct Pending MCV Pending MCH Pending MCHC Pending RDW Pending Plt Count Pending MPV Pending Immature Gran % (Auto) Pending Neut % (Auto) Pending Lymph % (Auto) Pending [place] % (Auto) Pending Eos % (Auto) Pending Baso % (Auto) Pending Lymph # (Auto) Pending [place] # (Auto) Pending Eos # (Auto) Pending Baso # (Auto) Pending Abs Immat Gran (auto) Pending Absolute Neuts (auto) Pending Absolute Nucleated RBC Pending Nucleated RBC % Pending PT Pending INR Pending APTT Pending RPR Pending : gestational age (G4, p 3 EDOD 07-10-23) Patient hx anesthesia problems: none Family hx anesthesia problems: none Prior surgeries: previous c/s X 3 Results Review: All pre-operative results and documents have been reviewed as part of the pre-operative evaluation. PMFSH Past Medical History Medical History History of pulmonary embolism Morbid obesity with BMI of 50.0-59.9, adult Surgical History Surgical History Previous section Social History Social History Smoking status: Never smoker Second hand tobacco smoke exposure: No Substance use: former Last use: February 2021 Spiritual care concerns: No Exam Day of Procedure 06/24/23 10:57 Patient weight: morbidly obese Heart: regular rate and rhythm Lungs: normal air movement Airway: Mallampati scale class II Neurological: alert and oriented
[2023-06-24 11:05] LABS: Anisocytosis 2+ (NORMAL); Hypochromasia 2+ (NORMAL); Microcytosis 2+ (NORMAL); Platelet Estimate Adequate (Adequate); Schistocytes None Seen (NORMAL)
[2023-06-24 11:07] LABS: Partial Thromboplastin Time 25.2 SECONDS (22.3-36.8); Prothrombin Time 13.6 Seconds (11.1-14.7)
[2023-06-24] MEDS: LACTATED RINGERS 1,000 ML 999 ML IV CONT (11:24)
[2023-06-24] MEDS: ceFAZolin 3 GM/D5W 100 ML 100 ML IVPB (11:37)
--- NOTE | 2023-06-24 12:33 | W.PM.PROC2 ---
Procedure Note - Detailed Date of Procedure 06/24/23 Pre-op Diagnosis C/S Post-op Diagnosis Same Procedure Performed Repeat low-transverse section Surgeon Felipe Palacio MD Anesthesia Spinal Indications this is a 27-year-old female at 38 weeks gestation with a history of DVT pulmonary embolism who was on Lovenox switched to heparin has been off that for 36hours. Findings 8Lb 12oz male Apgars 8915minutes respectively. Description of Procedure Patient is prepped draped normal sterile fashion placed in supine position. Under excellent spinal anesthetic the abdomen was entered advanced vaginal gross layers of fascia. Fascia incised midline care number outpatient bladder. Underlying muscles sharply dissected. Parietal peritoneum awakened clamps and by sharp dissection carried superiorly and inferiorly dome bladder. Bladder flap formed bladder blade returned. A low-transverse incision made and the breech delivered to the maternal left. The arms were swept medially the head delivered in the flexed position cord clamped x2 and cut infant passed off the table the Apgars of 8 and 9 at 1 and 5minutes respectively. Placenta delivered intact manually after drying cord blood after inspecting the uterus was free of debris the uterus was closed in continuous running locking 0 Vicryl from lateral edge to lateral edge. Was followed by 2nd imbricating running locking 0 Vicryl from lateral edge to lateral edge. Hemostasis was assured ovaries and tubes appeared within normal limits. Uterus returned the abdomen. Hysterotomy incision inspected 1 last time noted be hemostatic. The laps removed and accounted for. The fascia closed with continuous running 0 Vicryl from lateral edge to midline bilaterally. Irrigation subcutaneous layer and skin closed with 4 Monocryl glue. QBL was 220cc. All sponge, needle, instrument counts were correct. Mom and baby doing fine at the time dictation Estimated Blood Loss 220 Drains No Packing No Pathology Yes ( placenta) Condition Stable Disposition PACU
[2023-06-24] MEDS: KETOROLAC 30 MG/ML VIAL (*BKC) 15 MG IV PUSH (13:12)
[2023-06-24] MEDS: LORATADINE 10 MG TABLET PO (14:02)
[2023-06-24 14:41] LABS: Rapid Plasma Reagin Non-Reactive (NonReactive)
[2023-06-24] MEDS: DOCUSATE SODIUM 100 MG CAPSULE PO (16:48)
[2023-06-24] MEDS: POLYSACCHARIDE IRON COMPLEX 150 MG CAPSULE PO (16:48)
[2023-06-24] MEDS: HYDROcodone/acetaminophen (*CRX) 10-325 MG TABLET 1 TAB PO (17:39)
--- NOTE | 2023-06-24 18:55 | OBPPTRN ---
1501 Patient transferred to post room #281 via stretcher. Support person present. Oriented to unit, room, information board, rooming in, admission packet and security measures. Patient verbalizes understanding.
[2023-06-24] MEDS: DEXTROSE 5%/0.45% SOD CHL 1,000 ML 125 ML IV CONT (19:50)
[2023-06-24] MEDS: IBUPROFEN 600 MG TABLET PO (22:16)
[2023-06-24] MEDS: HEPARIN SODIUM 5,000 UNITS/ML VIAL 5000 UNITS SUB-Q (22:17)
[2023-06-25 00:50] VITALS: BP 121/59; PULSE 79; RESP 18; TEMP 36.4; O2SAT 98
[2023-06-25] MEDS: ACETAMINOPHEN 325 MG TABLET 650 MG PO (01:41)
[2023-06-25 03:25] VITALS: BP 119/54; PULSE 70; RESP 16; TEMP 36.4; O2SAT 98
[2023-06-25 03:55] LABS: Basophils Absolute Auto 0.1 K/mm3 (0.0-0.1); Basophils Percent Auto 0.4 % (0.2-1.2); Eosinophils Absolute Auto 0.2 K/mm3 (0-0.3); Eosinophils Percent Auto 1.4 % (0-4.4); Hematocrit 26.6 % (37.0-47.0); Hemoglobin 7.5 g/dL (12.0-15.0); Immature Granulocyte Absolute 0.19 K/mm3 (0.00-0.031); Immature Granulocyte Percent A 1.4 % (0-0.5); Immature Platelet Fraction Pct 8.7 % (0.9-11.2); Lymphocytes Percent Auto 15.9 % (18.3-44.2); Mean Corpuscular HGB Conc 28.2 g/dl (32-36); Mean Corpuscular Hemoglobin 20.9 pg (26-34); Mean Corpuscular Volume 74.1 fl (80-100); Mean Platelet Volume 11.5 fl (7.4-10.4); Monocytes Absolute Auto 1.1 K/mm3 (0.1-0.6); Monocytes Percent Auto 7.6 % (2.6-8.5); Neutrophils Absolute Auto 10.2 K/mm3 (1.3-6.7); Neutrophils Percent Auto 73.3 % (45.5-73.1); Nucleated Red Blood Cells Perc 0.1 % (0.0-0.2); Platelet Count Result 252 k/mm3 (150-375); Red Blood Count 3.59 M/mm3 (4.2-5.4); Red Cell Distribution Width 19.3 % (11.5-14.5); White Blood Count 13.9 K/mm3 (4.5-10.0)
[2023-06-25 04:18] LABS: Anisocytosis 1+ (NORMAL); Hypochromasia 1+ (NORMAL); Microcytosis 2+ (NORMAL); Platelet Estimate Adequate (Adequate); Polychromasia 1+ (NORMAL); Schistocytes None Seen (NORMAL)
--- NOTE | 2023-06-25 06:07 | P.PNOB_ITS ---
OB - PN: Subj Subjective Date/time seen: 06/25/23 06:07 Patient comments: no complaints and pain well controlled baby status: doing well and nursing well OB - PN: Obj Data Labs 06/25/23 03:32 Labs: Laboratory Results - last 24 hr 06/24/23 06/25/23 10:48 03:32 WBC 10.6 H 13.9 H RBC 3.95 L 3.59 L Hgb 8.1 L 7.5 L Hct 28.8 L 26.6 L MCV 72.9 L 74.1 L MCH 20.5 L 20.9 L MCHC 28.1 L 28.2 L RDW 19.3 H 19.3 H Plt Count 276 252 MPV 11.2 H 11.5 H Immature Gran % (Auto) 2.2 H 1.4 H Neut % (Auto) 69.3 73.3 H Lymph % (Auto) 19.0 15.9 L [place] % (Auto) 6.4 7.6 Eos % (Auto) 2.5 1.4 Baso % (Auto) 0.6 0.4 Lymph # (Auto) 2.00 2.20 [place] # (Auto) 0.7 H 1.1 H Eos # (Auto) 0.3 0.2 Baso # (Auto) 0.1 0.1 Abs Immat Gran (auto) 0.23 H 0.19 H Absolute Neuts (auto) 7.3 H 10.2 H Absolute Nucleated RBC 0.0 0.0 Nucleated RBC % 0.2 0.1 Platelet Estimate Adequate Adequate % Immature Plt Fraction 8.7 Polychromasia 1+ Hypochromasia 2+ 1+ Anisocytosis 2+ 1+ Microcytosis 2+ 2+ Schistocytes None seen None seen PT 13.6 INR 1.0 APTT 25.2 RPR Non-reactive Blood Type A Positive Antibody Screen Negative OB - PN A/P Plan day: 1 Plan: routine care Comments: begin iron supplementation. Will proceed with circumcision of sound Time Spent With Patient Time: Total time spent is greater than 50% in coordination of care (as documented) at patient's floor/unit and/or counseling patient: Exam Const: General: cooperative, healthy appearing and comfortable Orientation/consciousness: oriented to person, oriented to place and oriented to time Resp: Effort & Inspection: normal respiratory effort Cardio: Rate: regular rate Rhythm: regular rhythm Heart sounds: S1 normal heart sound present and S2 normal heart sound present GI: Inspection: normal to inspection and incision (Clean dry and intact)
--- NOTE | 2023-06-25 06:08 | PM.DS ---
DS: Admitting Diagnosis Discharge Date 06/28/2023 Admitting Diagnosis term / previous section /history of thromboembolic event DS: Discharge Diagnosis Discharge Diagnosis (1) Morbid obesity with BMI of 50.0-59.9, adult: Code(s): E66.01 - Morbid (severe) obesity due to excess calories; Z68.43 - Body mass index [BMI] 50.0-59.9, adult Status: Acute (2) History of pulmonary embolism: Code(s): Z86.711 - Personal history of pulmonary embolism Status: Acute (3) Previous section: Code(s): Z98.891 - History of uterine scar from previous surgery Status: Acute (4) Term : Code(s): Z34.90 - Encounter for supervision of normal , unspecified, unspecified trimester Status: Acute DS: Summary Hospital Course Reason for hospitalization: patient was admitted for repeat section on 06/24/2023. Hospital Course: The patient underwent successful repeat section on 06/24/2023. Her hospital course was unremarkable. She remained afebrile. Her hemoglobin was low but was low prior to admission so iron was begun. She was also placed on heparin 5000 subQ twice a day she prefer that over Lovenox. She was up, voiding without difficulty, ambulating, eating regular diet, and generally without complaints. Time Spent with Patient Time attestation: Total time spent providing and/or coordinating discharge services: DS: Data Data Completed and Pending Pending studies at discharge: Pending at discharge 06/24/23 12:13 Surgical [PTH] Routine Labs on day of discharge: Labs from last 24 hours 06/25/23 06/24/23 03:32 10:48 WBC 13.9 H 10.6 H RBC 3.59 L 3.95 L Hgb 7.5 L 8.1 L Hct 26.6 L 28.8 L MCV 74.1 L 72.9 L MCH 20.9 L 20.5 L MCHC 28.2 L 28.1 L RDW 19.3 H 19.3 H Plt Count 252 276 MPV 11.5 H 11.2 H Immature Gran % (Auto) 1.4 H 2.2 H Neut % (Auto) 73.3 H 69.3 Lymph % (Auto) 15.9 L 19.0 [place] % (Auto) 7.6 6.4 Eos % (Auto) 1.4 2.5 Baso % (Auto) 0.4 0.6 Lymph # (Auto) 2.20 2.00 [place] # (Auto) 1.1 H 0.7 H Eos # (Auto) 0.2 0.3 Baso # (Auto) 0.1 0.1 Abs Immat Gran (auto) 0.19 H 0.23 H Absolute Neuts (auto) 10.2 H 7.3 H Absolute Nucleated RBC 0.0 0.0 Nucleated RBC % 0.1 0.2 Platelet Estimate Adequate Adequate % Immature Plt Fraction 8.7 Polychromasia 1+ Hypochromasia 1+ 2+ Anisocytosis 1+ 2+ Microcytosis 2+ 2+ Schistocytes None seen None seen PT 13.6 INR 1.0 APTT 25.2 RPR Non-reactive Blood Type A Positive Antibody Screen Negative Discharge Plan Discharge Attending physician on discharge: Felipe Edmonds Discharging Clinician: Felipe Edmonds Patient Disposition: Home, Self-Care Activity: may shower, no straining, no driving and pelvic rest Diet: heart healthy Wound Care Instructions: follow printed instructions Discharge Instructions: Education: Mom and Baby Guide Given to: Mother Follow-Up: Call your delivering provider's office for an appointment to be seen in: Call for appointment Friday, June 30, 2023 Mom and baby should come to the [facility] for the follow-up appointment. Appointment Date/Time: Friday, June 30, 2023 at 10:00 a.m. What to expect at your follow-up visit: Blood Pressure Check Physical Assessment Call [phone] if you are unable to keep your appointment time. BREAST CARE: * Wear a snug supportive bra. * For engorgement discomfort: Breast Feeding: * Apply warm moist washcloths * Express milk as needed to relieve engorgement * Wear loose clothing Bottle Feeding: * May apply ice packs * For sore nipples: * Identify correct latch-on * Apply warm moist washcloths before and after nursing * Air dry nipples after nursing * May apply Lansinoh cream to nipples ABDOMINAL INCIS
[2023-06-25 06:29] VITALS: BP 123/58; PULSE 69; RESP 13; TEMP 36.7; O2SAT 98
[2023-06-25] MEDS: POLYSACCHARIDE IRON COMPLEX 150 MG CAPSULE PO ×2 (07:10→16:53)
[2023-06-25] MEDS: DOCUSATE SODIUM 100 MG CAPSULE PO ×2 (07:10→16:54)
[2023-06-25] MEDS: MULTIVIT/MIN/PREN/FOL AC/IRON TABLET 1 TAB PO (07:11)
[2023-06-25] MEDS: IBUPROFEN 600 MG TABLET PO ×3 (07:11→19:14)
--- NOTE | 2023-06-25 09:25 | PC.NURSE ---
On 06/25/23, the student, Rhiannon Lee, provided care and completed [facility] documentation on this patient. I have reviewed the student's documentation and agree with the findings.
[2023-06-25] MEDS: HEPARIN SODIUM 5,000 UNITS/ML VIAL 5000 UNITS SUB-Q ×2 (09:47→20:14)
--- NOTE | 2023-06-25 09:56 | PC.NURSE ---
2363 - Entered room to introduce myself and patient is on the phone. Will return later.
--- NOTE | 2023-06-25 10:44 | WPDANLDNPN2 ---
Anes-Prog Note L&D-Neuraxial Date/Time: 06/25/23 10:44 Neuraxial medications: intrathecal PF morphine Opiod-related complaints: pruritis Patient feedback: Patient satisfied with post-operative pain management. Comments: itching treated with loratadine 10 mg
--- NOTE | 2023-06-25 10:45 | WPDANLDPN2 ---
Anes-Prog Note L&D Date/Time: 06/25/23 10:45 Comfortable throughout: section Neuraxial method: spinal Epidural/Spinal procedure site: clean & non-tender Neuro status: Neuro function grossly intact. Cardiovascular status: normal Respiratory status: normal Airway patency: baseline Mental status: baseline Post-Op hydration status: normal Vital Signs: Last Vital Signs Temp 36.7 C 06/25/23 06:29 Pulse 69 06/25/23 06:29 Resp 13 06/25/23 06:29 BP 123/58 L 06/25/23 06:29 Pulse Ox 98 06/25/23 06:29 O2 Del Method Room Air 06/24/23 15:05 Pain score (VAS): 3/10 I/O: Intake & Output 06/24/23 06/25/23 06/25/23 23:59 07:59 15:59 Intake Total 1400 1450 Output Total 675 525 Balance 725 925 Post-procedural complaints: none Patient feedback: Patient satisfied with anesthetic care.
[2023-06-25 10:58] VITALS: BP 121/61; PULSE 72; RESP 14; TEMP 37; O2SAT 99
[2023-06-25] MEDS: HYDROcodone/acetaminophen (*CRX) 10-325 MG TABLET 1 TAB PO ×3 (12:02→20:15)
--- NOTE | 2023-06-25 12:47 | PC.NURSE ---
Addendum entered by Marta Reyna RN 06/25/23 12:52: Reviewed protecting the milk supply with consistent pumping every 3 hours 1-2 times at night. Mother states again she doesn't make a good supply. Reiterated consistent pump/breast stimulation may help with that and mother voiced understanding of information with no action at this time. Original Note: [id number] Introductions were made, then consulted with patient to assess needs related to . Mother led the conversation with her?feeding experience so far with infant. Mother states she does not make a good supply, wouldn't latch this morning so she fed another bottle. RN offered assistance with waking infant, and pump questions. Mother made no verbal or physical indication of wanting to accept assistance at this time. Mother encouraged to place [id number] on her chest, use massage touch and changing position to encourage wakefulness to feed and mother did not show action at this time and states she just bottle fed the infant, he was just circumcised and doesn't want to eat right now. Reported to the primary RN.
--- NOTE | 2023-06-25 16:12 | PCCCNOTE ---
Per Care Coordination. Patient referred to care coordination for financial assistance. Patient reports this is her 4th baby. Currently they are doing okay, but thinks they may need some assistance once she is not getting a paycheck on maternity leave. Provided patient with , housing, food, energy, and job search resources. Patient plans to return home with her children and father of the baby. She states having all necessary baby care items. She has good family support. Did provide her also with a basket of baby care items as well. Patient is already set up with WIC and plans to follow up with them at discharge. No further CC needs.
[2023-06-25 19:25] VITALS: BP 133/61; PULSE 74; RESP 20; TEMP 36.3; O2SAT 100
[2023-06-26] MEDS: HYDROcodone/acetaminophen (*CRX) 10-325 MG TABLET 1 TAB PO ×5 (00:15→14:56)
[2023-06-26] MEDS: IBUPROFEN 600 MG TABLET PO ×3 (04:45→17:00)
--- NOTE | 2023-06-26 06:55 | P.PNOB_ITS ---
OB - PN: Subj Subjective Date/time seen: 06/26/23 06:55 Patient comments: no complaints, pain well controlled and incisional pain [place] baby status: doing well and nursing well OB - PN: Obj Data Labs 06/25/23 03:32 OB - PN A/P Plan day: 2 Plan: routine care Time Spent With Patient Time: Total time spent is greater than 50% in coordination of care (as documented) at patient's floor/unit and/or counseling patient: Time with patient: less than 15 minutes Exam Const: General: cooperative, healthy appearing and comfortable Orientation/ consciousness: oriented to person, oriented to place and oriented to time HENMT: Head: normal to inspection Resp: Effort & Inspection: normal respiratory effort Cardio: Rate: regular rate Rhythm: regular rhythm Heart sounds: S1 normal heart sound present and S2 normal heart sound present GI: Inspection: normal to inspection and incision (cdi)
[2023-06-26] MEDS: POLYSACCHARIDE IRON COMPLEX 150 MG CAPSULE PO ×2 (07:53→17:01)
[2023-06-26] MEDS: LANOLIN (LANSINOH) 7.5 GM CREAM 1 APPLIC TOPICAL (07:54)
[2023-06-26] MEDS: DOCUSATE SODIUM 100 MG CAPSULE PO ×2 (07:54→17:01)
[2023-06-26] MEDS: MULTIVIT/MIN/PREN/FOL AC/IRON TABLET 1 TAB PO (07:54)
[2023-06-26 07:55] VITALS: BP 138/67; PULSE 71; RESP 18; TEMP 36.2; O2SAT 99
[2023-06-26] MEDS: HEPARIN SODIUM 5,000 UNITS/ML VIAL 5000 UNITS SUB-Q ×2 (09:18→21:41)
--- NOTE | 2023-06-26 17:39 | PC.NURSE ---
Ana Park RN, has looked over and agrees with the charting for this patient that Lori Caputo RN License Pending has completed.
[2023-06-26 19:40] VITALS: BP 139/63; PULSE 79; RESP 16; TEMP 36.1; O2SAT 100
[2023-06-26] MEDS: HYDROcodone/acetaminophen (*CRX) 5-325 MG TABLET 1 TAB PO (19:52)
[2023-06-27] MEDS: HYDROcodone/acetaminophen (*CRX) 10-325 MG TABLET 1 TAB PO ×2 (01:23→04:54)
[2023-06-27] MEDS: IBUPROFEN 600 MG TABLET PO ×4 (01:23→23:05)
[2023-06-27] MEDS: SIMETHICONE 80 MG TAB.CHEW PO ×2 (01:23→17:31)
--- NOTE | 2023-06-27 06:28 | PM.OBPNVD ---
OB - PN: Subj Subjective Date/time seen: 06/27/23 06:28 Patient comments: pain well controlled and other (Incision was subcutaneous old blood seen. Pressure dressing ordered) OB - PN: Obj Data Labs 06/25/23 03:32 OB - PN A/P Plan day: 3 Comments: check H&H and placed pressure dressing Time Spent With Patient Time: Total time spent is greater than 50% in coordination of care (as documented) at patient's floor/unit and/or counseling patient: Time with patient: less than 15 minutes Exam Const: General: cooperative, healthy appearing and comfortable Nutritional Appearance: obese Orientation/consciousness: oriented to person, oriented to place and oriented to time HENMT: Head: normal to inspection Resp: Effort & Inspection: normal respiratory effort Cardio: Rate: regular rate Rhythm: regular rhythm Heart sounds: S1 normal heart sound present and S2 normal heart sound present GI: Inspection: normal to inspection and incision ( old blood draining from left-sided incision)
--- NOTE | 2023-06-27 06:41 | PC.NURSE ---
0605 Patient called out to say she was bleeding a lot. Entered room to find patient standing next to bed with some red blood on floor and on her bed. Had patient get onto bed for exam, found the left side of her abdominal incision was actively bleeding. Applied pressure with a towel. Dr. Ton Palacio was called. 0630 Pressure dressing applied, H&H drawn. Patient states the bleeding did not hurt.
[2023-06-27 06:45] LABS: Hematocrit 25.3 % (37.0-47.0)
[2023-06-27 06:46] LABS: Hemoglobin 6.9 g/dL (12.0-15.0)
[2023-06-27] MEDS: ONDANSETRON HCL ODT 4 MG TABLET PO (07:00)
[2023-06-27] MEDS: POLYSACCHARIDE IRON COMPLEX 150 MG CAPSULE PO ×2 (07:03→17:27)
[2023-06-27] MEDS: MULTIVIT/MIN/PREN/FOL AC/IRON TABLET 1 TAB PO (07:04)
[2023-06-27 08:05] VITALS: BP 130/64; PULSE 83; RESP 16; TEMP 36.6; O2SAT 100
[2023-06-27 15:30] VITALS: BP 135/67; PULSE 65
[2023-06-27] MEDS: HYDROcodone/acetaminophen (*CRX) 5-325 MG TABLET 1 TAB PO ×3 (15:30→23:05)
[2023-06-27] MEDS: DOCUSATE SODIUM 100 MG CAPSULE PO (17:27)
[2023-06-27 20:00] VITALS: BP 135/68; PULSE 77; RESP 16; TEMP 36.8; O2SAT 100
--- NOTE | 2023-06-27 20:24 | PC.NURSE ---
2000 charting under previous RN but done by Larry Roman RN
[2023-06-27] MEDS: HEPARIN SODIUM 5,000 UNITS/ML VIAL 5000 UNITS SUB-Q (21:00)
[2023-06-28] MEDS: HYDROcodone/acetaminophen (*CRX) 5-325 MG TABLET 1 TAB PO ×3 (03:21→13:36)
[2023-06-28 06:11] LABS: Hematocrit 25.5 % (37.0-47.0); Mean Corpuscular HGB Conc 27.5 g/dl (32-36); Mean Corpuscular Hemoglobin 21.3 pg (26-34); Mean Corpuscular Volume 77.5 fl (80-100); Mean Platelet Volume 11.4 fl (7.4-10.4); Platelet Count Result 317 k/mm3 (150-375); Red Blood Count 3.29 M/mm3 (4.2-5.4); Red Cell Distribution Width 19.9 % (11.5-14.5); White Blood Count 12.1 K/mm3 (4.5-10.0)
[2023-06-28 06:37] LABS: Anisocytosis 2+ (NORMAL); Band Neutrophils Percent 3 % (0-6); Eosinophils Absolute Manual 0.84 K/mm3 (0.02-0.5); Eosinophils Percent Manual 7 % (0-4); Giant Platelets Present; Hypochromasia 1+ (NORMAL); Large Platelets Present; Lymphocytes Absolute Manual 2.42 K/mm3 (1.1-4.5); Metamyelocytes Percent 2 %; Monocytes Absolute Manual 0.48 K/mm3 (0.1-0.90); Monocytes Percent Manual 4 % (3-9); Neutrophils Percent Manual 64 % (46-73); Ovalocytes 1+ (NORMAL); Platelet Estimate Adequate (Adequate); Poikilocytosis 1+ (NORMAL); Schistocytes None Seen (NORMAL); Total Cells Counted 100
[2023-06-28 08:00] VITALS: PULSE 70; RESP 16; O2SAT 100
[2023-06-28 08:17] VITALS: BP 132/83; PULSE 70; RESP 16; TEMP 36.3
--- NOTE | 2023-06-28 08:26 | P.PNOB_ITS ---
OB - PN: Subj Subjective Date/time seen: 06/28/23 08:26 Narrative: Pain OK. Tolerating diet. Would like to go home. OB - PN: Obj Data Labs 06/28/23 05:28 Labs: Laboratory Results - last 24 hr 06/28/23 05:28 WBC 12.1 H RBC 3.29 L Hgb 7.0 L Hct 25.5 L MCV 77.5 L MCH 21.3 L MCHC 27.5 L RDW 19.9 H Plt Count 317 MPV 11.4 H Immature Gran % (Auto) Not Reportable Neut % (Auto) Not Reportable Lymph % (Auto) Not Reportable [place] % (Auto) Not Reportable Eos % (Auto) Not Reportable Baso % (Auto) Not Reportable Lymph # (Auto) Not Reportable [place] # (Auto) Not Reportable Eos # (Auto) Not Reportable Baso # (Auto) Not Reportable Abs Immat Gran (auto) Not Reportable Absolute Neuts (auto) Not Reportable Absolute Nucleated RBC Not Reportable Total Counted 100 Neutrophils % (Manual) 64 Band Neutrophils % 3 Lymphocytes % (Manual) 20.0 Monocytes % (Manual) 4 Eosinophils % (Manual) 7 H Metamyelocytes % 2 Nucleated RBC % Not Reportable Abs Neuts (Manual) 8.10 H Abs Lymphs (Manual) 2.42 Abs Monocytes (Manual) 0.48 Absolute Eos (Manual) 0.84 H Platelet Estimate Adequate Large Platelets Present Giant Platelets Present Hypochromasia 1+ Poikilocytosis 1+ Anisocytosis 2+ Ovalocytes 1+ Schistocytes None seen OB - PN A/P Plan Comments: A: POD#4, doing well. Thrombophilia. Some drainage from left edge of incision. P: Home to continue heparin. Wet to dry dressings and f/u with Dr. Ton Palacio in 2 days. Exam Narrative: AVSS ABD soft, nontender, fundus firm. Incision still with moderate serosanguineous drainage, no surrounding erythema. EXT nontender
[2023-06-28] MEDS: MULTIVIT/MIN/PREN/FOL AC/IRON TABLET 1 TAB PO (09:31)
[2023-06-28] MEDS: IBUPROFEN 600 MG TABLET PO (09:32)
[2023-06-28] MEDS: POLYSACCHARIDE IRON COMPLEX 150 MG CAPSULE PO (09:32)
[2023-06-28] MEDS: DOCUSATE SODIUM 100 MG CAPSULE PO (09:32)
[2023-06-28] MEDS: HEPARIN SODIUM 5,000 UNITS/ML VIAL 5000 UNITS SUB-Q (09:34)
== END 2023-06-28 13:55 | disposition home or self-care (01) | DRG 540 ==
LOC: ANHLDR 09:57 → ANHOB2 15:07
PROVIDERS: Admitting Provider Obstetrics & Gynecology; Visit Provider Obstetrics & Gynecology
PROC: 10D00Z1 Extraction of Products of Conception, Low, Open Approach (ICD-10-PCS; CPT 59514; principal; 2023-06-24 12:00)
DX: O34.219 Maternal care for unspecified type scar from previous cesarean delivery (principal); O32.1XX0 Maternal care for breech presentation, not applicable or unspecified; O99.214 Obesity complicating childbirth; D64.9 Anemia, unspecified; O99.02 Anemia complicating childbirth; E66.01 Morbid (severe) obesity due to excess calories; Z3A.38 38 weeks gestation of pregnancy; Z79.01 Long term (current) use of anticoagulants; Z86.19 Personal history of other infectious and parasitic diseases; Z86.711 Personal history of pulmonary embolism; Z37.0 Single live birth
CPT/HCPCS: 36415; 85014; 85018; 85025; 85055; 85610; 85730; 86592; 86850; 86900; 86901; 88307; A9270; J0690; J1644; J1885; J2274; J2371; J2405; J2590; J7120

== ENCOUNTER 2023-07-11 08:55 | Observation (INO) | payer OTHER, SELFPAY ==
[2023-07-11] VITALS (12 sets, daily range): BP systolic 89–124; BP diastolic 52–67; PULSE 93–122; RESP 14–21; TEMP 36.9–39.2; O2SAT 96–100; BMI 49.6
--- NOTE | ~2023-07-11 | XR_ITS ---
EXAMINATION: XR chest 1V portable INDICATION: Shortness of breath TECHNIQUE: Portable AP chest at 0931 hours COMPARISON: None available FINDINGS: The lungs are free of acute opacities. No pleural effusion or pneumothorax. The cardiomedia stinal silhouette is normal. IMPRESSION: 1. No acute cardiopulmonary abnormality. Reviewed, dictated and finalized at location B.
--- NOTE | ~2023-07-11 | CT_ITS ---
EXAMINATION: CTA chest PE abdomen pel DATE: 07/11/2023 11:00 INDICATION: Shortness of breath, abdominal pain, section 2 weeks ago TECHNIQUE: Computed tomography angiography (CTA) of the chest was performed with 200 mL Omnipaque-350 intravenous contrast timed to evaluate the pulmonary arteries. Subsequent postcontrast images of the abdomen and pelvis are obtained. Coronal maximum intensity projection 3D-reconstructions were create d by the technologist. The dose-length product (DLP) was 3081.06 mGy-cm. Automated exposure control a nd iterative reconstruction technique were employed. COMPARISON: None. FINDINGS: CTA CHEST: There is fair opacification of the pulmonary arteries. No pulmonary embolus is identified. There is mild dependent atelectasis. No pleural effusion or pneumothorax. No pathologically enlarged thoracic lymph nodes are identified. The heart size is normal. There is mild thoracic spondylosis. ABDOMEN/PELVIS CT: The liver, spleen, pancreas, gallbladder, and adrenal glands are normal. The right kidney is unremarkable. There is a 5 mm nonobstructing stone of the left mid kidney. No pathologically enlarged abdominal or pelvic lymph nodes are identified. No free intraperitoneal ga s or evidence of bowel obstruction. There is a trace volume of ascites in the right pericolic gutter. A small amount of inflammatory changes seen anteriorly in the lower abdomen near the uterus. No foca l abscess is identified. There is moderate lumbar spondylosis at L5-S1. IMPRESSION: 1. No pulmonary embolus or acute cardiopulmonary abnormalities identified. 2. Minimal inflammatory change anteriorly in the lower abdomen an small amount of fluid in the right pericolic gutter, likely related to recent section. Reviewed, dictated and finalized at location B. IMPRESSION: 1. No pulmonary embolus or acute cardiopulmonary abnormalities identified. 2. Minimal inflammatory change anteriorly in the lower abdomen an small amount of fluid in the right pericolic gutter, likely related to recent secti on.
--- NOTE | 2023-07-11 09:00 | ECG_ITS ---
Measurements Intervals [place] Rate: 115 P: 54 [place]: 132 QRS: 30 QRSD: 81 T: 39 QT: 292 QTc: 405 Interpretive Statements SINUS TACHYCARDIA OTHERWISE NORMAL ECG NO PREVIOUS ECG AVAILABLE FOR COMPARISON Electronically Signed On 07-11-2023 13:59:29 CDT by Evan Mayo M.D.
--- NOTE | 2023-07-11 09:11 | ED.CHESTPAIN ---
HPI - Chest Pain General Chief Complaint: Chest Pain Stated Complaint: mult c/o, 2 wks PP History of Present Illness HPI narrative: 27-year-old female presented the emergency department for evaluation of generalized weakness, shortness of breath. Patient delivered section approximately 2 weeks ago. Patient states she began developing some chest pain shortness of breath decreased p.o. intake stomach pain. Patient also states that she has been aware that her abdominal incision has been dehiscing. Patient does have a history of PE. Related Data Home Medications Medication Instructions Recorded Confirmed albuterol sulfate 90 mcg/actuation 2 puff inhalation Q4H PRN 01/30/22 07/11/23 aerosol inhaler Shortness Of Breath vit no.95-ferrous 1 tablet PO DAILY 05/16/23 07/11/23 fumarate 28 mg-folic acid 800 mcg tablet () enoxaparin 40 mg/0.4 mL 40 mg subcut DAILY 07/11/23 07/11/23 subcutaneous syringe Allergies Allergy/AdvReac Type Severity Reaction Status Date / Time No Known Allergies Allergy Verified 07/11/23 09:10 Review of Systems Review of Systems: All systems reviewed & are unremarkable except as noted in HPI and below PMFSH Past Medical History Medical History History of pulmonary embolism Morbid obesity with BMI of 50.0-59.9, adult Surgical History Surgical History Previous section Social History Social History Smoking status: Never smoker Second hand tobacco smoke exposure: Yes Alcohol intake: never Substance use: never Last use: February 2021 Lack of Transportation: No Lack of Food: Often True Current Housing: I Have Housing Concerned About Future Housing: No Difficulty Paying Gas/Electric Bills: YES Difficulty Paying for Meds: No Currently Unemployed: No Education: High School Diploma/GED Difficulty w/ Childcare or Family Care: No Spiritual care concerns: No Exam Narrative: APPEARANCE: Well appearing, no pain, no distress, well-nourished. HEAD: normocephalic, atraumatic. EYES: PERRLA/EOMI, conjunctivae clear. NOSE: Normal no drainage NECK: Supple. No adenopathy, no masses. RESPIRATORY: Airway patent, respirations nonlabored. Clear to auscultation bilaterally, no rales, rhonchi, wheezing. CARDIOVASCULAR: Regular rate and rhythm without murmurs rubs or gallops. ABDOMINAL: Soft, nontender, nondistended, normal bowel sounds. Small amount of dehiscence of the incision MUSCULOSKELETAL: Moves all extremities. Strength/ROM intact, No edema, No calf tenderness. NEURO: Alert. Cranial nerves II through XII intact. Grossly intact Course Course Emergency Course: 27-year-old female presented the emergency department for evaluation of chest pain and subjective fever 2 weeks . Patient did have a fever of 102. Patient has a white count of 13.3 and hemoglobin of 9.3. Patient did have an elevated D-dimer of 4.26 and a CTA study was ordered. No significant abnormalities on her CMP and patient had negative serial troponins. UA did not show evidence of urinary tract infection and patient was negative for COVID and influenza. Patient does have some mild dehiscence of her scar with no significant erythema or purulence. Case was discussed with Dr. Byrnes who is on-call for Dr. Ton Palacio and plan is to start the patient on antibiotics and admit for further observation. Patient was updated on the results of her work-up and plan for admission. All question concerns were addressed and patient was well-appearing at time of admission. Vital Signs Vital signs: Vital Signs Temperature 98.5 F 07/11/23 08:54 Pulse Rate 122 H 07/11/23 08:54 Respiratory Rate 21 H 07/11/23 08:54 Blood Pressure 89/54 L 07/11/23 08:54 Pulse Oximetry 100 07/11/23 0
[2023-07-11 09:20] LABS: Basophils Absolute Auto 0.1 K/mm3 (0.0-0.1); Basophils Percent Auto 0.4 % (0.2-1.2); Eosinophils Percent Auto 0.2 % (0-4.4); Hematocrit 33.5 % (37.0-47.0); Hemoglobin 9.3 g/dL (12.0-15.0); Immature Granulocyte Absolute 0.16 K/mm3 (0.00-0.031); Immature Granulocyte Percent A 1.2 % (0-0.5); Lymphocytes Absolute Auto 0.41 K/mm3 (0.9-3.2); Lymphocytes Percent Auto 3.1 % (18.3-44.2); Mean Corpuscular HGB Conc 27.8 g/dl (32-36); Mean Corpuscular Hemoglobin 20.8 pg (26-34); Mean Corpuscular Volume 74.8 fl (80-100); Mean Platelet Volume 9.6 fl (7.4-10.4); Monocytes Absolute Auto 0.3 K/mm3 (0.1-0.6); Neutrophils Absolute Auto 12.4 K/mm3 (1.3-6.7); Neutrophils Percent Auto 93.1 % (45.5-73.1); Platelet Count Result 680 k/mm3 (150-375); Red Blood Count 4.48 M/mm3 (4.2-5.4); Red Cell Distribution Width 19.9 % (11.5-14.5); White Blood Count 13.3 K/mm3 (4.5-10.0)
[2023-07-11] MEDS: ASPIRIN 81 MG CHEWABLE TABLET 324 MG PO (09:34)
[2023-07-11] MEDS: SODIUM CHLORIDE 0.9% IV 1,000 ML 999 ML IV CONT ×2 (09:35→11:37)
[2023-07-11 09:38] LABS: Alanine Aminotransferase 18 U/L (6-35); Albumin Level 4.2 g/dL (3.5-5.1); Alkaline Phosphatase 68 U/L (38-126); Anion Gap 12 mmol/L (8-16); Aspartate Amino Transferase 21 U/L (14-36); Bilirubin,Total 0.6 mg/dL (0.2-1.3); Blood Urea Nitrogen 21 mg/dL (7-17); Calcium 8.9 mg/dL (8.4-10.2); Carbon Dioxide 18 mmol/L (22-30); Chloride 107 mmol/L (98-107); Estimated CRCL calculation 126 ml/min; Estimated Glomerular Filt Rate > 60; Glucose 120 mg/dL (65-110); Lipase 35 U/L (23-300); Potassium 4.2 mmol/L (3.4-5.0); Sodium 137 mmol/L (137-145)
[2023-07-11 09:46] LABS: Troponin I < 0.012 ng/mL (0.000-0.034)
[2023-07-11 09:55] LABS: Influenza A QL RT-PCR Negative (Negative); Influenza B QL RT-PCR Negative (Negative); SARS-CoV-2 RNA PCR Negative (Negative)
[2023-07-11 10:03] LABS: INR 1.2; Prothrombin Time 15.5 Seconds (11.1-14.7)
[2023-07-11 10:05] LABS: Hypochromasia 2+ (NORMAL); Microcytosis 2+ (NORMAL); Ovalocytes 1+ (NORMAL); Platelet Estimate Increased (Adequate); Schistocytes None Seen (NORMAL)
[2023-07-11] MEDS: ONDANSETRON INJ 4 MG/2 ML VIAL IV PUSH ×3 (10:12→21:00)
[2023-07-11 10:15] LABS: D Dimer 4.26 ug/mL (<0.48)
[2023-07-11] MEDS: HYDROmorphone HCL INJ (*CRX) 1 MG/ML SYR 0.5 MG IV PUSH (11:33)
[2023-07-11] MEDS: ACETAMINOPHEN 500 MG TABLET 1000 MG PO ×3 (11:50→21:00)
[2023-07-11 12:14] LABS: Appearance Urine Clear (Clear); Bilirubin Urine Negative (Negative); Blood Urine Negative (Negative); Color Urine Yellow (Yellow); Glucose Urine UA Negative (Negative); Ketones Urine Negative (Negative); Leukocyte Esterase Ur Negative LEU/UL (Negative); Nitrate Urine Negative (Negative); Protein Urine Negative (Negative); Urobilinogen Urine 0.2 mg/dL (<2.0); pH Urine 7.5 (5.0-9.0)
[2023-07-11 12:27] LABS: Specific Grav Ur 1.046 (1.001-1.035)
[2023-07-11 12:28] LABS: Add Urine Microscopic? NO
[2023-07-11 12:55] LABS: Troponin I < 0.012 ng/mL (0.000-0.034)
[2023-07-11] MEDS: AMPICILLIN SULB 1.5 GM/NS 50ML 1.5 GM/50 ML VIAL IVPB ×2 (13:17→17:41)
[2023-07-11 16:05] LABS: Troponin I 0.021 ng/mL (0.000-0.034)
--- NOTE | 2023-07-11 16:44 | PM.IMHP ---
H&P: HPI History of Present Illness Date/Time: 07/11/23 16:44 Chief Complaint: Pain Narrative: 27 y/o POD#17 after repeat LTCS. She had seen Dr. Ton Palacio in the office yesterday with some RUQ pain and was sent home. She woke up this morning with pain, had explosive diarrhea at around 4 am, then vomited. She has no SOB. She has been taking her heparin BID, and has still required some [facility] 5/325 for incisional pain, and Motrin for cramping. She is . Baby is doing well. Incision has been draining since the initial surgery, but drainage seems to be lessening. CT shows no PE, normal postop changes near uterus, normal gallbladder. Temp 102.5F in ED. ED physician called me, said she looked too ill to go home, so she has been admitted for antibiotics and overnight observation. Review of Systems Review of Systems: All systems reviewed & are unremarkable except as noted in HPI and below PMFSH Past Medical History Medical History History of pulmonary embolism Morbid obesity with BMI of 50.0-59.9, adult Surgical History Surgical History Previous section Social History Social History Smoking status: Never smoker Second hand tobacco smoke exposure: Yes Alcohol intake: never Substance use: never Last use: February 2021 Lack of Transportation: No Lack of Food: Often True Current Housing: I Have Housing Concerned About Future Housing: No Difficulty Paying Gas/Electric Bills: YES Difficulty Paying for Meds: No Currently Unemployed: No Education: High School Diploma/GED Difficulty w/ Childcare or Family Care: No Spiritual care concerns: No Meds Home Medications and Allergies Home Medications Medication Instructions Recorded Confirmed Type albuterol sulfate 90 mcg/actuation 2 puff inhalation Q4H PRN 01/30/22 07/11/23 History aerosol inhaler Shortness Of Breath vit no.95-ferrous 1 tablet PO DAILY 05/16/23 07/11/23 History fumarate 28 mg-folic acid 800 mcg tablet () hydrocodone 5 mg-acetaminophen 325 1 tablet PO Q4H PRN pain #30 tabs 06/24/23 07/11/23 Rx mg tablet ferrous sulfate 325 mg (65 mg 325 mg PO DAILY #30 tabs 06/27/23 07/11/23 Rx iron) tablet enoxaparin 40 mg/0.4 mL 40 mg subcut DAILY 07/11/23 07/11/23 History subcutaneous syringe Allergies Allergy/AdvReac Type Severity Reaction Status Date / Time No Known Allergies Allergy Verified 07/11/23 09:10 Vital Signs Vital Signs - 24 hr 07/11/23 08:54 07/11/23 09:10 07/11/23 09:14 Temperature 36.9 C Pulse Rate 122 H Respiratory Rate 21 H Blood Pressure 89/54 L 108/56 L Pulse Oximetry 100 100 Oxygen Delivery Room Air Room Air 07/11/23 09:20 07/11/23 09:44 07/11/23 10:31 Temperature Pulse Rate 110 H 119 H 115 H Respiratory Rate 14 20 Blood Pressure 115/60 124/61 Pulse Oximetry 100 98 Oxygen Delivery 07/11/23 11:37 07/11/23 15:30 07/11/23 15:49 Temperature 39.2 C H 38.4 C H Pulse Rate 110 H Respiratory Rate 15 Blood Pressure 119/55 L Pulse Oximetry 96 Oxygen Delivery Room Air 07/11/23 14:40 Temperature 37.1 C Pulse Rate 110 H Respiratory Rate 20 Blood Pressure 109/52 L Pulse Oximetry 96 Oxygen Delivery Exam Const: Orientation/consciousness: patient oriented x3 Other: Well-developed, well-nourished female in no acute distress. Neck: Thyroid: thyroid normal Lymphatic: no lymphadenopathy noted (in neck, axilla or inguinal nodes) Chest: Other: Breasts: No skin dimpling, no erythema, no axillary adenopathy, no dominant mass. noted bilaterally. Resp: Effort & Inspection: normal respiratory effort Auscultation: clear to auscultation bilaterally Cardio: Rate: regular rate Rhythm: regular rhythm Heart sounds: S
[2023-07-11] MEDS: DEXTROSE 5%/0.45% SOD CHL 1,000 ML 125 ML IV CONT (17:40)
[2023-07-11] MEDS: HYDROcodone/acetaminophen (*CRX) 10-325 MG TABLET 1 TAB PO (17:41)
[2023-07-11] MEDS: IBUPROFEN 600 MG TABLET PO (19:34)
[2023-07-11] MEDS: ZOLPIDEM TARTRATE (*CRX) 5 MG TABLET PO (20:59)
[2023-07-11] MEDS: HEPARIN SODIUM 5,000 UNITS/ML VIAL 10000 UNITS SUB-Q (21:00)
[2023-07-11] MEDS: TOLNAFTATE 1% POWDER 45 GM BTL 1 APPLIC TOPICAL (21:03)
[2023-07-12] MEDS: AMPICILLIN SULB 1.5 GM/NS 50ML 1.5 GM/50 ML VIAL IVPB ×2 (00:35→05:35)
[2023-07-12 02:03] VITALS: TEMP 36.7
[2023-07-12 06:00] VITALS: BP 115/89; PULSE 99; RESP 16; TEMP 35.9; O2SAT 97
[2023-07-12 06:58] LABS: Basophils Percent Auto 0.5 % (0.2-1.2); Hematocrit 27.2 % (37.0-47.0); Hemoglobin 7.5 g/dL (12.0-15.0); Immature Granulocyte Absolute 0.04 K/mm3 (0.00-0.031); Lymphocytes Absolute Auto 0.73 K/mm3 (0.9-3.2); Lymphocytes Percent Auto 18.5 % (18.3-44.2); Mean Corpuscular HGB Conc 27.6 g/dl (32-36); Mean Corpuscular Hemoglobin 20.8 pg (26-34); Mean Corpuscular Volume 75.3 fl (80-100); Mean Platelet Volume 9.6 fl (7.4-10.4); Monocytes Absolute Auto 0.5 K/mm3 (0.1-0.6); Monocytes Percent Auto 12.7 % (2.6-8.5); Neutrophils Absolute Auto 2.7 K/mm3 (1.3-6.7); Neutrophils Percent Auto 67.3 % (45.5-73.1); Platelet Count Result 552 k/mm3 (150-375); Red Blood Count 3.61 M/mm3 (4.2-5.4); Red Cell Distribution Width 19.6 % (11.5-14.5); White Blood Count 3.9 K/mm3 (4.5-10.0)
[2023-07-12 08:02] LABS: Platelet Estimate Increased (Adequate)
[2023-07-12 08:03] LABS: Anisocytosis 1+ (NORMAL); Hypochromasia 2+ (NORMAL); Microcytosis 1+ (NORMAL); Ovalocytes 1+ (NORMAL); Schistocytes None Seen (NORMAL)
[2023-07-12] MEDS: HYDROcodone/acetaminophen (*CRX) 5-325 MG TABLET 1 TAB PO (08:08)
[2023-07-12] MEDS: MULTIVIT/MIN/PREN/FOL AC/IRON TABLET 1 TAB PO (08:08)
[2023-07-12] MEDS: TOLNAFTATE 1% POWDER 45 GM BTL 1 APPLIC TOPICAL (08:09)
[2023-07-12] MEDS: HEPARIN SODIUM 5,000 UNITS/ML VIAL 10000 UNITS SUB-Q (08:09)
--- NOTE | 2023-07-12 10:56 | PM.GYNPNOP ---
SENSOR TECHNICIAN - A/P Assessment and plan (1) Puerperal fever, : Code(s): O86.4 - Pyrexia of unknown origin following delivery Status: Acute Assessment and Plan: A: Likely viral syndrome. Clinically improving. P: Home today to f/u office next week. Time Spent With Patient Time: Total time spent is greater than 50% in coordination of care (as documented) at patient's floor/unit and/or counseling patient: Time with patient: less than 15 minutes SENSOR TECHNICIAN- PN:Sameer Post-Op Subjective Date/time seen: 07/12/23 10:56 Interval history: Abdominal pain resolved. No nausea. No more diarrhea. She says her kids have all had fevers at home. She says she feels much better today. Exam Narrative: Currently afebrile. Temp 38C last night. Otherwise, VSS. ABD soft, nontender, fundus firm. Incision unchanged. EXT nontender SENSOR TECHNICIAN - PN: Obj Data Vital Signs Vital Signs: Vital Signs - 24 hr 07/11/23 11:37 07/11/23 15:30 07/11/23 15:49 Temperature 39.2 C H 38.4 C H Pulse Rate 110 H Respiratory Rate 15 Blood Pressure 119/55 L Pulse Oximetry 96 Oxygen Delivery Room Air 07/11/23 14:40 07/11/23 16:30 07/11/23 18:06 Temperature 37.1 C 38.8 C H 37.3 C Pulse Rate 110 H Respiratory Rate 20 Blood Pressure 109/52 L Pulse Oximetry 96 Oxygen Delivery 07/11/23 21:16 07/12/23 02:03 07/12/23 06:00 Temperature 38.3 C H 36.7 C 35.9 C L Pulse Rate 93 99 Respiratory Rate 16 16 Blood Pressure 101/67 115/89 Pulse Oximetry 97 97 Oxygen Delivery 07/12/23 08:00 Temperature Pulse Rate Respiratory Rate Blood Pressure Pulse Oximetry Oxygen Delivery Room Air Intake/Output Intake/Output: Intake & Output 07/09/23 07/10/23 07/11/23 07/12/23 23:59 23:59 23:59 23:59 Intake Total 2840 1504 Output Total 850 Balance 2840 654 Meds/Results Medications: Active Medications Generic Name Dose Route Start Last Admin Trade Name Freq PRN Reason Stop Dose Admin Acetaminophen 1,000 mg 07/11/23 15:22 07/11/23 21:00 Acetaminophen 500 Mg Tablet PO 1,000 mg Q6H PRN Administration Mild Pain (1-3) or Fever Hydrocodone Bitart/Acetaminophen 1 tab 07/11/23 16:56 07/11/23 17:41 Hydrocodone/Acetaminophen (*Crx) 10-325 Mg Tablet PO 1 tab Q3H PRN Administration Pain Rated 7-10 Hydrocodone Bitart/Acetaminophen 1 tab 07/11/23 16:56 07/12/23 08:08 Hydrocodone/Acetaminophen (*Crx) 5-325 Mg Tablet PO 1 tab Q3H PRN Administration Moderate Pain (4-6) Albuterol 2 puff 07/11/23 17:02 Albuterol Sulfate (*Sp) Aerosol 1 Puff INHALATION Q4H PRN Shortness Of Breath Fentanyl Citrate 50 mcg 07/11/23 13:00 Fentanyl Citrate Inj (*Crx) 100 Mcg/2 Ml Vial IV PUSH Q2H PRN Pain Rated 7-10 Heparin Sodium (Porcine) 10,000 units 07/11/23 21:00 07/12/23 08:09 Heparin Sodium 5,000 Units/Ml Vial SUB-Q 10,000 units Q12HR NICHOL Administration Ampicillin Sodium/Sulbactam Sodium 1.5 gm in 50 mls @ 100 mls/hr 07/11/23 18:00 07/12/23 06:05 Unasyn 1.5 Gm/Ns 50 Ml IVPB Infused Q6HR NICHOL Infusion Dextrose/Sodium Chloride 1,000 mls @ 125 mls/hr 07/11/23 17:00 07/12/23 01:40 Dextrose 5% Sodium Chloride 0.45% IV CONT Infused .Q8H NICHOL Infusion Ibuprofen 600 mg 07/11/23 16:56 07/11/23 19:34 Ibuprofen 600 Mg Tablet PO 600 mg Q6H PRN Administration Cramping Loperamide HCl 2 mg 07/11/23 17:04 Loperamide Hcl 2 Mg Capsule PO PRN PRN Diarrhea Ondansetron HCl 4 mg 07/11/23 13:00 07/11/23 21:00 Ondansetron Inj 4 Mg/2 Ml Vial IV PUSH 4 mg Q4H PRN Administration Nausea Ondansetron HCl 4 mg 07/11/23 16:56 Ondansetron Inj 4 Mg/2 Ml Vial IV PUSH Q6H PRN Nausea Pantoprazole Sodium 40 mg 07/11/23 17:05 Pantoprazole 40 Mg Tablet PO ONCE NICHOL Vit/Calcium/Iron/Folic Ac 1 tab 07/12/23 09:00 07/12/23 08:08 Multivit/Min/Pren/Fol
[2023-07-12] MEDS: IBUPROFEN 600 MG TABLET PO (11:44)
--- NOTE | 2023-08-07 13:01 | P.DS_ITS ---
DS: Admitting Diagnosis Discharge Date 07/12/23 Admitting Diagnosis Puerperal fever DS: Discharge Diagnosis Discharge Diagnosis (1) Puerperal fever, : Code(s): O86.4 - Pyrexia of unknown origin following delivery Status: Acute DS: Summary Hospital Course Hospital Course: Admitted for fever. She was covered with Unasyn IV. She defervesced and was able to go home to f/u as outpatient. Time Spent with Patient Time attestation: Total time spent providing and/or coordinating discharge services: Discharge Plan Discharge Attending physician on discharge: Orion Byrnes Consulting providers: Evan Mayo; Joaquin Bermudez Discharging Clinician: Orion Byrnes Patient Disposition: Home, Self-Care Activity: may shower and pelvic rest Diet: regular Wound Care Instructions: change dressing daily Discharge Instructions: Continue pelvic rest, dressing changes as before. Patient Instructions: Antibiotic Form, Fever in Adults (GEN), (DC) Stand Alone Forms: General Discharge Information Follow-up/Referrals: Felipe Edmonds MD [Physician] - Call for Appointment Discharge Medications: New ibuprofen 600 mg tablet 600 mg PO Q6H PRN (Reason: cramps) Qty: 30 0RF amoxicillin-pot clavulanate 875-125 mg tablet 1 tablet PO Q12H Qty: 10 0RF nystatin 100,000 unit/gram powder 1 applic topical BID Qty: 15 0RF heparin (porcine) 10,000 unit/mL solution 10,000 unit subcut Q12H Qty: 25 0RF Continued albuterol sulfate 90 mcg/actuation HFA aerosol inhaler 2 puff INHALATION Q4H PRN (Reason: Shortness Of Breath) PNV cmb#95-ferrous fumarate-FA [] 28 mg iron- 800 mcg Tablet 1 tablet PO DAILY hydrocodone-acetaminophen 5-325 mg tablet 1 tablet PO Q4H PRN (Reason: pain) Qty: 30 0RF ferrous sulfate 325 mg (65 mg iron) tablet 325 mg PO DAILY Qty: 30 0RF Discontinued enoxaparin 40 mg/0.4 mL syringe 40 mg subcut DAILY Date of admission: 07/11/23 13:00 Primary Care Provider: PHYSICIAN,HADOOP ENGINEER Admitting Provider: Orion Byrnes Attending physician on admission: Orion Byrnes Condition: Stable
== END 2023-07-12 12:15 | disposition home or self-care (01) ==
LOC: ANHED 09:40 → ANH3MEDSUR 14:11
PROVIDERS: Admitting Provider Obstetrics & Gynecology; Emergency Provider Emergency Medicine; Visit Provider Obstetrics & Gynecology
DX: O86.4 Pyrexia of unknown origin following delivery (principal); O99.13 Other diseases of the blood and blood-forming organs and certain disorders involving the immune mechanism complicating the puerperium; D72.829 Elevated white blood cell count, unspecified; O90.3 Peripartum cardiomyopathy; R00.0 Tachycardia, unspecified; Z20.822 Contact with and (suspected) exposure to COVID-19; Z86.711 Personal history of pulmonary embolism; Z79.51 Long term (current) use of inhaled steroids; Z79.891 Long term (current) use of opiate analgesic; Z79.899 Other long term (current) drug therapy
CPT/HCPCS: 36415; 71045; 71275; 74177; 80053; 81003; 83690; 84484; 85025; 85380; 85610; 85730; 87040; 87636; 93005; 96361; 96365; 96375; 96376; 99285; A9270; G0378; G0379; J0295; J1170; J1644; J2405; J7030; Q9967

== ENCOUNTER 2024-01-31 08:56 | Emergency (ER) | payer OTHER, SELFPAY ==
--- NOTE | ~2024-01-31 | CT_ITS ---
EXAMINATION: CT abdomen pelvis w con DATE: 01/31/2024 11:20 INDICATION: Left-sided abdominal pain and nausea TECHNIQUE: Computed tomography (CT) of the abdomen and pelvis was performed with 100 mL Omnipaque-350 intravenous contrast. Automated exposure control and iterative reconstruction technique were employe d. The dose-length product was 1524.82 mGy-cm. COMPARISON: 07/11/2023 FINDINGS: Mild discoid atelectasis in the left lower lobe. Heart size is normal. No pericardial or pleural effu cordell. Liver, gallbladder, spleen, pancreas, bilateral adrenal glands and right kidney are normal. A n onobstructing 9 x 4 x 4 mm renal stone in the left renal pelvis. There is mild inflammatory stranding surrounding the left renal pelvis and proximal left ureter with no hydronephrosis. Bowels including the appendix are normal. Bladder, anteverted uterus and bilateral adnexa are normal. No free intraper itoneal gas or fluid. No pathologically enlarged abdominal or pelvic lymphadenopathy. Moderate lower lumbar and lower thoracic spondylosis. IMPRESSION: 1. Mild inflammatory stranding surrounding the left renal pelvis and proximal most left ureter likely related to the presence of a currently nonobstructing 9 x 4 x 4 mm stone at the left renal pelvis. C orrelate with urinalysis. Reviewed, dictated and finalized at location A. IMPRESSION: 1. Mild inflammatory stranding surrounding the left renal pelvis and proximal m ost left ureter likely related to the presence of a currently nonobstructing 9 x 4 x 4 mm stone at the left renal pelvis. Correlate with urinalysis.
--- NOTE | ~2024-01-31 | XR_ITS ---
EXAMINATION: XR abdomen/kub 1V DATE: 01/31/2024 12:11 INDICATION: Left-sided flank pain and kidney stones TECHNIQUE: A supine view of the abdomen on 2 radiographs was obtained. COMPARISON: CT dated 01/31/24 FINDINGS: There is excreted contrast in the bilateral renal collecting systems, along the ureters and in the bl adder from the recent prior contrast enhanced CT. No hydronephrosis. The stone seen at the left renal pelvis on the prior CT is nonvisualized, likely obscured by the contrast had indeterminate location. Normal bowel gas pattern. Mild lumbar levocurvature. IMPRESSION: 1. Excreted contrast in the bilateral renal collecting systems, ureters and bladder which likely obsc ures the stone previously noted at the left renal pelvis which is of current indeterminate location. Reviewed, dictated and finalized at location A. IMPRESSION: 1. Excreted contrast in the bilateral renal collecting systems, ureters and vesna dder which likely obscures the stone previously noted at the left renal pelvis which is of current indeterminate location.
[2024-01-31 08:57] VITALS: BP 142/69; PULSE 73; RESP 18; TEMP 36.3; O2SAT 97
--- NOTE | 2024-01-31 09:30 | ED.ABDPAIN ---
HPI - Abdominal Pain General Chief Complaint: Abdominal Pain Stated Complaint: abd pain Time Seen by Provider: 01/31/24 09:14 Source: patient Mode of arrival: ambulatory Limitations: no limitations History of Present Illness HPI narrative: This is a 28-year-old female that presents to the emergency department for left-sided abdominal pain. Ongoing intermittently over the last month. Reports the pain is achy in nature. No known exacerbating factors. Associated with some nausea and flank pain. Also reports some loose stools. Denies fevers, vomiting, dysuria, or hematuria. Related Data Home Medications Medication Instructions Recorded Confirmed albuterol sulfate 90 mcg/actuation 2 puff inhalation Q4H PRN 01/30/22 07/11/23 aerosol inhaler Shortness Of Breath vit no.95-ferrous 1 tablet PO DAILY 05/16/23 07/11/23 fumarate 28 mg-folic acid 800 mcg tablet () Allergies Allergy/AdvReac Type Severity Reaction Status Date / Time No Known Allergies Allergy Verified 07/11/23 09:10 Review of Systems Review of Systems: CONSTITUTIONAL: Denies fever GASTROINTESTINAL: Reports abdominal pain, nausea, and diarrhea. Denies vomiting GENITOURINARY: Denies dysuria or hematuria. All systems reviewed & are unremarkable except as noted in HPI and below PMFSH Past Medical History Medical History History of pulmonary embolism Morbid obesity with BMI of 50.0-59.9, adult Surgical History Surgical History Previous section Social History Social History Smoking status: Never smoker Second hand tobacco smoke exposure: Yes Alcohol intake: never Substance use: never Last use: February 2021 Lack of Transportation: No Lack of Food: Often True Current Housing: I Have Housing Concerned About Future Housing: No Difficulty Paying Gas/Electric Bills: YES Difficulty Paying for Meds: No Currently Unemployed: No Education: High School Diploma/GED Difficulty w/ Childcare or Family Care: No Spiritual care concerns: No Exam Narrative: GENERAL: Well-appearing, well-nourished, and in no acute distress. HEAD: Normocephalic, atraumatic. EYES: EOMI. CHEST: Clear to auscultation. No respiratory distress. No wheezes rales or rhonchi HEART: Regular rate and rhythm. No murmur heard. Normal peripheral pulses. ABDOMEN: Soft, nondistended, normal active bowel sounds. Mild tenderness to palpation of the left side of the abdomen, without guarding. No CVA tenderness EXTREMITIES: Normal range of motion. No edema. SKIN: Warm, dry, no rash. NEURO: No focal deficits. Alert and oriented x3. PSYCH: Normal mood and affect Course Course Emergency Course: Patient updated on her workup and agrees with plan of care Consultations Consultation #1: Spoke with Dr. Rueda about patient and workup. Will obtain KUB. She may call for follow up outpatient Date: 01/31/24 Vital Signs Vital signs: Vital Signs Temperature 97.4 F L 01/31/24 08:57 Pulse Rate 73 01/31/24 08:57 Respiratory Rate 18 01/31/24 08:57 Blood Pressure 142/69 H 01/31/24 08:57 Pulse Oximetry 97 01/31/24 08:57 Temperature 97.4 F L 01/31/24 08:57 Pulse Rate 73 01/31/24 08:57 Respiratory Rate 18 01/31/24 08:57 Blood Pressure 142/69 H 01/31/24 08:57 Pulse Oximetry 97 01/31/24 08:57 MDM - Abdominal Pain MDM Narrative Medical decision making narrative: Patient presents to the ER for left sided abdominal pain. Ongoing intermittently over the last month. She is afebrile and nontoxic appearing. Her vitals are stable. Cbc without leukocytosis. Shows microcytic anemia, which appears chronic for patient. Metabolic panel with normal appearing kidney function. UA with 6-10 white blood cells, also moderate squamous epithelial cells. No
[2024-01-31 09:32] LABS: Basophils Absolute Auto 0.1 K/mm3 (0.0-0.1); Basophils Percent Auto 0.7 % (0.2-1.2); Eosinophils Absolute Auto 0.2 K/mm3 (0-0.3); Eosinophils Percent Auto 2.2 % (0-4.4); Hemoglobin 10.7 g/dL (12.0-15.0); Immature Granulocyte Absolute 0.03 K/mm3 (0.00-0.031); Immature Granulocyte Percent A 0.3 % (0-0.5); Lymphocytes Absolute Auto 1.75 K/mm3 (0.9-3.2); Lymphocytes Percent Auto 19.1 % (18.3-44.2); Mean Corpuscular HGB Conc 28.9 g/dl (32-36); Mean Corpuscular Volume 76.1 fl (80-100); Mean Platelet Volume 10.5 fl (7.4-10.4); Monocytes Absolute Auto 0.6 K/mm3 (0.1-0.6); Neutrophils Absolute Auto 6.6 K/mm3 (1.3-6.7); Neutrophils Percent Auto 71.7 % (45.5-73.1); Platelet Count Result 317 k/mm3 (150-375); Red Blood Count 4.86 M/mm3 (4.2-5.4); Red Cell Distribution Width 18.6 % (11.5-14.5); White Blood Count 9.2 K/mm3 (4.5-10.0)
[2024-01-31 09:39] LABS: Appearance Urine Cloudy (Clear); Bacteria Urine 1+ /hpf; Bilirubin Urine Negative (Negative); Blood Urine 1+ (Negative); Color Urine Yellow (Yellow); Glucose Urine UA Negative (Negative); Ketones Urine Negative (Negative); Leukocyte Esterase Ur Negative LEU/UL (Negative); Nitrate Urine Negative (Negative); Non Pathogenic Casts 0-2; Protein Urine 2+ mg/dL (Negative); Specific Grav Ur 1.024 (1.001-1.035); Squamous Epithelial Cell Urine Moderate /hpf (Few); pH Urine 6.5 (5.0-9.0)
[2024-01-31 09:42] LABS: Add Urine Microscopic? YES
[2024-01-31] MEDS: ONDANSETRON INJ 4 MG/2 ML VIAL IV PUSH (09:46)
[2024-01-31 09:50] LABS: Hypochromasia 2+; Schistocytes None Seen
[2024-01-31 09:51] LABS: Ovalocytes 1+; Platelet Estimate Adequate (Adequate)
[2024-01-31 10:13] LABS: Alanine Aminotransferase 15 U/L (6-35); Albumin Level 4.5 g/dL (3.5-5.1); Alkaline Phosphatase 90 U/L (38-126); Anion Gap 7 mmol/L (4-12); Aspartate Amino Transferase 20 U/L (14-36); Bilirubin,Total 0.6 mg/dL (0.2-1.3); Blood Urea Nitrogen 13 mg/dL (7-17); Calcium 9.1 mg/dL (8.4-10.2); Carbon Dioxide 23 mmol/L (22-30); Chloride 111 mmol/L (98-107); Estimated CRCL calculation 133 ml/min; Estimated Glomerular Filt Rate > 60; Glucose 99 mg/dL (65-110); Lipase 44 U/L (23-300); Potassium 4.1 mmol/L (3.4-5.0); Sodium 141 mmol/L (137-145)
[2024-01-31 12:15] VITALS: BP 97/86; PULSE 75; RESP 16; O2SAT 97
== END 2024-01-31 12:15 | disposition home or self-care (01) ==
PROVIDERS: Emergency Provider Physician Assistant
DX: N20.0 Calculus of kidney (principal); E66.01 Morbid (severe) obesity due to excess calories; Z68.42 Body mass index [BMI] 45.0-49.9, adult; Z86.711 Personal history of pulmonary embolism
CPT/HCPCS: 36415; 74018; 74177; 80053; 81001; 81025; 83690; 85025; 87086; 96374; 99284; J2405; Q9967

== ENCOUNTER 2024-02-07 16:55 | Observation (INO) | payer OTHER, SELFPAY ==
--- NOTE | ~2024-02-07 | XR_ITS ---
EXAM: XR abdomen/kub 1V DATE: 02/07/2024 18:45 HISTORY: Left kidney stone . COMPARISON: X-ray abdomen and CT abdomen pelvis 01/31/2024. FINDINGS: Clear lung bases. Normal bowel gas pattern. No organomegaly. A 12 mm calcification overlie s the expected location of the left renal pelvis. Regional bones and soft tissues normal for age. IMPRESSION: Stable left nephrolithiasis. Reviewed, dictated and finalized at location [facility].
--- NOTE | ~2024-02-07 | XR_ITS ---
XR retrograde pyelo w/stent LT DATE: 02/08/2024 08:52 INDICATION: 9 x 4 x 4 mm left renal pelvic calculus. Left urinary stent placement TECHNIQUE: 14 spot C-arm images of the left abdomen 66.0 seconds fluoroscopy time 1.97 mGym2 COMPARISON: 02/07/2024 KUB 01/31/2024 CT abdomen and pelvis FINDINGS: Calcified left renal pelvic calculus is noted on the c web developer image. There is subsequent left retrograde pyelogram revealing no ureteral or renal pelvic calyceal dilatation. Subsequent placement of left intraureteral stent. The distal ureter and distal stent are not included in the field of view . IMPRESSION: Left renal pelvic calcification calculus; no hydroureteronephrosis Left internal urinary stent placement Reviewed, dictated and finalized at Location [facility]. Reviewed, dictated and finalized at location A.
[2024-02-07 16:57] VITALS: BP 130/68; PULSE 84; RESP 18; TEMP 36.9; O2SAT 99
--- NOTE | 2024-02-07 18:25 | ED.ABDPAIN ---
HPI - Abdominal Pain General Chief Complaint: Abdominal Pain Stated Complaint: kidney stone Time Seen by Provider: 02/07/24 17:52 History of Present Illness HPI narrative: 28-year-old female presents the emergency department for left upper abdominal pain and left flank pain intermittently for approximately 1 month. Patient was seen in our emergency department on 01/31/2024 and was found to have a 9 x 4 x 4 mm stone at the left renal pelvis. She was discharged home with pain and nausea medications and urology follow-up. Patient states she attempted to follow up outpatient, however the urology group does not accept her insurance. She states she called her insurance company and was provided a list of urologists were mostly within the same group. Again, these urologist did not take her insurance. She states she has been taking the [place] and Zofran with improvement, however ran out yesterday and her pain and nausea have become much worse today. She reports multiple episodes of vomiting since 3:00 p.m.. She denies dysuria or hematuria, fever. No prior history of kidney stones. Related Data Home Medications Medication Instructions Recorded Confirmed albuterol sulfate 90 mcg/actuation 2 puff inhalation Q4H PRN 01/30/22 07/11/23 aerosol inhaler Shortness Of Breath vit no.95-ferrous 1 tablet PO DAILY 05/16/23 07/11/23 fumarate 28 mg-folic acid 800 mcg tablet () Allergies Allergy/AdvReac Type Severity Reaction Status Date / Time No Known Allergies Allergy Verified 02/07/24 17:52 Review of Systems Review of Systems: CONSTITUTIONAL: Denies fever, chills, or sweats. EYES: Denies visual changes, redness, or discharge. ENT: Denies rhinorrhea, congestion, sore throat, or otalgia. CARDIOVASCULAR: Denies chest pain, palpitations, or edema. RESPIRATORY: Denies cough or dyspnea. GASTROINTESTINAL: See HPI GENITOURINARY: See HPI SKIN: Denies rash or itching. MUSCULOSKELETAL: Denies back pain, joint pain, or myalgia. NEUROLOGIC: Denies headache, numbness, or weakness. PSYCHIATRIC: Denies anxiety or depression. [facility] Past Medical History Medical History History of pulmonary embolism Morbid obesity with BMI of 50.0-59.9, adult Surgical History Surgical History Previous section Social History Social History Smoking status: Never smoker Second hand tobacco smoke exposure: Yes Alcohol intake: never Substance use: never Last use: February 2021 Lack of Transportation: No Lack of Food: Often True Current Housing: I Have Housing Concerned About Future Housing: No Difficulty Paying Gas/Electric Bills: YES Difficulty Paying for Meds: No Currently Unemployed: No Education: High School Diploma/GED Difficulty w/ Childcare or Family Care: No Spiritual care concerns: No Exam Narrative: GENERAL: Well-appearing, well-nourished, and in no acute distress. HEAD: Normocephalic, atraumatic. EYES: PERRLA and EOMI. ENT: Nares clear, no rhinorrhea or epistaxis. Mucous membranes moist. NECK: Supple. CHEST: Clear to auscultation. No respiratory distress. HEART: Regular rate and rhythm. No murmur heard. Normal peripheral pulses. ABDOMEN: Soft, nontender, nondistended, normal active bowel sounds. No rebound, guarding or rigidity. No CVA tenderness. EXTREMITIES: Normal range of motion. No edema. SKIN: Warm, dry, no rash. NEURO: No focal deficits. Alert and oriented x3 Course Vital Signs Vital signs: Vital Signs Temperature 98.4 F 02/07/24 16:57 Pulse Rate 84 02/07/24 16:57 Respiratory Rate 18 02/07/24 16:57 Blood Pressure 130/68 02/07/24 16:57 Pulse Oximetry 99 02/07/24 16:57 Oxygen Delivery Room Air 02/07/24 16:57 Temperature 98.4 F 02/07/24 16:57 Pulse Rate 73
[2024-02-07] MEDS: MORPHINE SULFATE (*CRX) 4 MG/ML INJ IV PUSH (18:53)
[2024-02-07] MEDS: ONDANSETRON INJ 4 MG/2 ML VIAL IV PUSH (18:53)
[2024-02-07 18:59] LABS: Basophils Absolute Auto 0.1 K/mm3 (0.0-0.1); Basophils Percent Auto 0.6 % (0.2-1.2); Eosinophils Absolute Auto 0.3 K/mm3 (0-0.3); Eosinophils Percent Auto 2.7 % (0-4.4); Hematocrit 34.6 % (37.0-47.0); Hemoglobin 10.1 g/dL (12.0-15.0); Immature Granulocyte Absolute 0.04 K/mm3 (0.00-0.031); Immature Granulocyte Percent A 0.4 % (0-0.5); Lymphocytes Absolute Auto 2.75 K/mm3 (0.9-3.2); Lymphocytes Percent Auto 26.2 % (18.3-44.2); Mean Corpuscular HGB Conc 29.2 g/dl (32-36); Mean Corpuscular Hemoglobin 22.2 pg (26-34); Mean Corpuscular Volume 76.2 fl (80-100); Mean Platelet Volume 10.5 fl (7.4-10.4); Monocytes Absolute Auto 0.6 K/mm3 (0.1-0.6); Neutrophils Absolute Auto 6.8 K/mm3 (1.3-6.7); Neutrophils Percent Auto 64.1 % (45.5-73.1); Platelet Count Result 316 k/mm3 (150-375); Red Blood Count 4.54 M/mm3 (4.2-5.4); Red Cell Distribution Width 18.5 % (11.5-14.5); White Blood Count 10.5 K/mm3 (4.5-10.0)
[2024-02-07 19:05] VITALS: PULSE 75; RESP 16; O2SAT 100
[2024-02-07 19:11] LABS: Alanine Aminotransferase 190 U/L (6-35); Albumin Level 4.3 g/dL (3.5-5.1); Alkaline Phosphatase 165 U/L (38-126); Anion Gap 6 mmol/L (4-12); Aspartate Amino Transferase 173 U/L (14-36); Bilirubin,Total 0.7 mg/dL (0.2-1.3); Blood Urea Nitrogen 16 mg/dL (7-17); Calcium 8.9 mg/dL (8.4-10.2); Carbon Dioxide 23 mmol/L (22-30); Chloride 106 mmol/L (98-107); Estimated CRCL calculation 118 ml/min; Estimated Glomerular Filt Rate > 60; Glucose 90 mg/dL (65-110); Lipase 240 U/L (23-300); Potassium 4.2 mmol/L (3.4-5.0); Sodium 135 mmol/L (137-145)
[2024-02-07 19:21] LABS: Platelet Estimate Adequate (Adequate); Schistocytes None Seen
[2024-02-07 19:22] LABS: Anisocytosis 2+; Hypochromasia 1+
[2024-02-07 19:29] VITALS: BP 138/68; PULSE 73; RESP 16; O2SAT 100
[2024-02-07 19:56] LABS: Appearance Urine Cloudy (Clear); Bacteria Urine 2+ /hpf; Bilirubin Urine Negative (Negative); Blood Urine Negative (Negative); Color Urine Yellow (Yellow); Glucose Urine UA Negative (Negative); Ketones Urine Trace mg/dL (Negative); Leukocyte Esterase Ur Negative LEU/UL (Negative); Need Manual Microscopic Reviewed; Nitrate Urine Negative (Negative); Non Pathogenic Casts 0-2; Protein Urine Trace mg/dL (Negative); RBC Urine 0-2 /hpf (0-2); Squamous Epithelial Cell Urine Many /hpf (Few)
[2024-02-07 19:58] LABS: Add Urine Microscopic? YES; Specific Grav Ur 1.031 (1.001-1.035)
--- NOTE | 2024-02-07 20:50 | PM.IMHP ---
H&P: HPI History of Present Illness Date/Time: 02/07/24 20:50 Chief Complaint: left flank pain Narrative: this is a 28-year-old female with past medical history significant for morbid obesity.Patient presents to the emergency room for a 2nd time due to left flank pain patient was found to have a stone and was supposed to follow-up in outpatient setting but due to insurance was not able to find a provider. Patient denies any fevers, rigors, chills has had nausea and vomiting. EXAMINATION: CT abdomen pelvis w con DATE: 01/31/2024 11:20 INDICATION: Left-sided abdominal pain and nausea TECHNIQUE: Computed tomography (CT) of the abdomen and pelvis was performed with 100 mL Omnipaque-350 intravenous contrast. Automated exposure control and iterative reconstruction technique were employed. The dose-length product was 1524.82 mGy-cm. COMPARISON: 07/11/2023 FINDINGS: Mild discoid atelectasis in the left lower lobe. Heart size is normal. No pericardial or pleural effusion. Liver, gallbladder, spleen, pancreas, bilateral adrenal glands and right kidney are normal. A nonobstructing 9 x 4 x 4 mm renal stone in the left renal pelvis. There is mild inflammatory stranding surrounding the left renal pelvis and proximal left ureter with no hydronephrosis. Bowels including the appendix are normal. Bladder, anteverted uterus and bilateral adnexa are normal. No free intraperitoneal gas or fluid. No pathologically enlarged abdominal or pelvic lymphadenopathy. Moderate lower lumbar and lower thoracic spondylosis. IMPRESSION: 1. Mild inflammatory stranding surrounding the left renal pelvis and proximal most left ureter likely related to the presence of a currently nonobstructing 9 x 4 x 4 mm stone at the left renal pelvis. Correlate with urinalysis. EXAM:? XR abdomen/kub 1V DATE: 02/07/2024 18:45 HISTORY: Left kidney stone . COMPARISON:? X-ray abdomen and CT abdomen pelvis 01/31/2024. FINDINGS:? Clear lung bases. Normal bowel gas pattern. No organomegaly. A 12 mm calcification overlies the expected location of the left renal pelvis. Regional bones and soft tissues normal for age. IMPRESSION: Stable left nephrolithiasis. [facility] Past Medical History Medical History History of pulmonary embolism Morbid obesity with BMI of 50.0-59.9, adult Surgical History Surgical History Previous section Family History Family History (Updated 02/07/24 @ 23:44 by Roxanne Garner, RN) Other Unknown family medical history Social History Social History (Updated 02/07/24 @ 23:43 by Roxanne Garner, RN) Smoking status: Never smoker Second hand tobacco smoke exposure: Yes Alcohol intake: current Drinks per week: 2 Substance use: former Substance use type: marijuana Last use: 11/2023 Do You Feel Safe in your Home?: Yes Lack of Transportation: No Lack of Food: Never True Current Housing: I Have Housing Concerned About Future Housing: No Difficulty Paying Gas/Electric Bills: No Difficulty Paying for Meds: No Currently Unemployed: No Education: Trade/Vocational Certificate Difficulty w/ Childcare or Family Care: No Living arrangements: with family Occupation/Education: occupation Gender identity (if verbalized by the patient): Female Sexual Orientation (if Verbalized by the Patient): Straight or Heterosexual Spiritual care concerns: No Agree to blood products: Yes Meds Home Medications and Allergies Home Medications Medication Instructions Recorded Confirmed Type ibuprofen 600 mg tablet 600 mg PO Q6H PRN cramps #30 tabs 07/12/23 02/07/24 Rx amoxicillin 500 mg tablet 500 mg PO TID 02/07/24 02/07/24 History Allergies Allergy/AdvReac Type Severity Reaction Status Date / Time No Known Allergies Allergy Verified 02/07/24 17:52 Vital Signs Vital Signs - 24 hr
[2024-02-07] MEDS: SODIUM CHLORIDE 0.9% IV 1,000 ML 125 ML IV CONT (21:24)
[2024-02-07] MEDS: diphenhydrAMINE HCl INJ 50 MG/ML VIAL 25 MG IV PUSH (21:25)
[2024-02-07 21:33] VITALS: BP 119/77; PULSE 71; RESP 16; O2SAT 100
[2024-02-07 22:00] VITALS: PULSE 69; RESP 18; O2SAT 98
[2024-02-07 22:15] VITALS: BP 146/56; PULSE 67; RESP 16; TEMP 36.2; O2SAT 98
--- NOTE | 2024-02-07 22:20 | ADMGEN ---
This patient, Celia Xavier, was admitted to Medical Room 243-. Patient/family oriented to hospital policies and general routines including ID bracelet, bed and alarms, visiting hours, pain management, procedures, bathroom and other care routines, personal items, smoking policy, room service/diet, and visiting hours. Information on how to activate the Rapid Response Team has been discussed. Patient/Family are encouraged to report perceived risks to care and to ask questions if they do not understand what they are told or what they should do.
[2024-02-07 22:21] VITALS: BMI 49.2
[2024-02-07] MEDS: HYDROcodone/acetaminophen (*CRX) 5-325 MG TABLET 1 TAB PO (23:57)
[2024-02-08] MEDS: SODIUM CHLORIDE 0.9% IV 1,000 ML 125 ML IV CONT (05:44)
[2024-02-08] MEDS: HYDROcodone/acetaminophen (*CRX) 5-325 MG TABLET 1 TAB PO ×2 (05:45→11:31)
[2024-02-08 06:00] VITALS: BP 128/66; PULSE 79; RESP 16; TEMP 37.1; O2SAT 100
--- NOTE | 2024-02-08 08:07 | PM.IMHP ---
H&P: HPI History of Present Illness Date/Time: 02/08/24 08:07 Chief Complaint: Left renal colic with recurrent pain and nausea. She has a 1 cm left renal pelvis stone. No Signs of infection. No Fever Review of Systems Review of Systems: No other active issues PMFSH Past Medical History Medical History History of pulmonary embolism Morbid obesity with BMI of 50.0-59.9, adult Surgical History Surgical History Previous section Family History Family History Other Unknown family medical history Social History Social History Smoking status: Never smoker Second hand tobacco smoke exposure: Yes Alcohol intake: current Drinks per week: 2 Substance use: former Substance use type: marijuana Last use: 11/2023 Do You Feel Safe in your Home?: Yes Lack of Transportation: No Lack of Food: Never True Current Housing: I Have Housing Concerned About Future Housing: No Difficulty Paying Gas/Electric Bills: No Difficulty Paying for Meds: No Currently Unemployed: No Education: Trade/Vocational Certificate Difficulty w/ Childcare or Family Care: No Living arrangements: with family Occupation/Education: occupation Gender identity (if verbalized by the patient): Female Sexual Orientation (if Verbalized by the Patient): Straight or Heterosexual Spiritual care concerns: No Agree to blood products: Yes Meds Home Medications and Allergies Home Medications Medication Instructions Recorded Confirmed Type ibuprofen 600 mg tablet 600 mg PO Q6H PRN cramps #30 tabs 07/12/23 02/07/24 Rx amoxicillin 500 mg tablet 500 mg PO TID 02/07/24 02/07/24 History Allergies Allergy/AdvReac Type Severity Reaction Status Date / Time No Known Allergies Allergy Verified 02/07/24 17:52 Vital Signs Vital Signs - 24 hr 02/07/24 16:57 02/07/24 19:05 02/07/24 19:29 Temperature 36.9 C Pulse Rate 84 75 73 Respiratory Rate 18 16 16 Blood Pressure 130/68 138/68 Pulse Oximetry 99 100 100 Oxygen Delivery Room Air 02/07/24 21:33 02/07/24 22:00 02/07/24 22:15 Temperature 36.2 C L Pulse Rate 71 69 67 Respiratory Rate 16 18 16 Blood Pressure 119/77 146/56 H Pulse Oximetry 100 98 98 Oxygen Delivery 02/08/24 06:00 Temperature 37.1 C Pulse Rate 79 Respiratory Rate 16 Blood Pressure 128/66 Pulse Oximetry 100 Oxygen Delivery Exam Const: General: cooperative, healthy appearing, alert and awake HENMT: Head: normal to inspection Eyes: General: appearance normal, both eyes and all related structures Chest: Chest palpation & inspection: normal inspection of the chest Resp: Auscultation: clear to auscultation bilaterally GI: Inspection: normal to inspection : General: Yes bimanual renal exam normal bilaterally Back/Spine/Pelvis: Back: CVA tenderness (left) Neuro: General: oriented to person H&P: Results Labs Labs: Short CBC 02/07/24 Range/Units 18:53 WBC 10.5 H (4.5-10.0) K/mm3 Hgb 10.1 L (12.0-15.0) g/dL Hct 34.6 L (37.0-47.0) % Plt Count 316 (150-375) k/mm3 BMP 02/07/24 18:53 Sodium 135 L Potassium 4.2 Chloride 106 Carbon Dioxide 23 BUN 16 Creatinine 0.80 Glucose 90 Calcium 8.9 Liver Function 02/07/24 Range/Units 18:53 Total Bilirubin 0.7 (0.2-1.3) mg/dL AST 173 H (14-36) U/L ALT 190 H (6-35) U/L Alkaline Phosphatase 165 H (38-126) U/L Albumin 4.3 (3.5-5.1) g/dL Urine 02/07/24 Range/Units 19:00 Urine Color Yellow (Yellow) Urine Appearance Cloudy H (Clear) Urine pH 6.0 (5.0-9.0) Ur Specific [place] 1.031 (1.001-1.035) Urine Protein Trace (Negative) mg/dL Urine Glucose (UA) Negative (Negative) mg/dL A
--- NOTE | 2024-02-08 08:15 | WPDANESEPPF ---
Anes - Initial Pre Proc Eval Procedure: Operation Date: 02/08/24 08:30 Proposed Procedures p Cysto, RPG, Stone Ext, Stent Placement(Left) - Evan Vera MD Date/Time: 02/08/24 08:15 Surgeon: Lars Austin MD Pre Op Diagnosis: Nephrolithiasis Patient Data Age: 28 Gender: F Height: 1.66 m Weight: 136.4 kg Last Vital Signs Temp 37.1 C 02/08/24 06:00 Pulse 79 02/08/24 06:00 Resp 16 02/08/24 06:00 BP 128/66 02/08/24 06:00 Pulse Ox 100 02/08/24 06:00 O2 Del Method Room Air 02/07/24 16:57 Allergies Allergy/AdvReac Type Severity Reaction Status Date / Time No Known Allergies Allergy Verified 02/07/24 17:52 Home Medications Medication Instructions Recorded Confirmed Type ibuprofen 600 mg tablet 600 mg PO Q6H PRN cramps #30 tabs 07/12/23 02/07/24 Rx amoxicillin 500 mg tablet 500 mg PO TID 02/07/24 02/07/24 History Laboratory Tests 02/07/24 02/07/24 18:53 19:00 WBC 10.5 H K/mm3 (4.5-10.0) RBC 4.54 M/mm3 (4.2-5.4) Hgb 10.1 L g/dL (12.0-15.0) Hct 34.6 L % (37.0-47.0) MCV 76.2 L fl (80-100) MCH 22.2 L pg (26-34) MCHC 29.2 L g/dl (32-36) RDW 18.5 H % (11.5-14.5) Plt Count 316 k/mm3 (150-375) MPV 10.5 H fl (7.4-10.4) Immature Gran % (Auto) 0.4 % (0-0.5) Neut % (Auto) 64.1 % (45.5-73.1) Lymph % (Auto) 26.2 % (18.3-44.2) [place] % (Auto) 6.0 % (2.6-8.5) Eos % (Auto) 2.7 % (0-4.4) Baso % (Auto) 0.6 % (0.2-1.2) Lymph # (Auto) 2.75 K/mm3 (0.9-3.2) [place] # (Auto) 0.6 K/mm3 (0.1-0.6) Eos # (Auto) 0.3 K/mm3 (0-0.3) Baso # (Auto) 0.1 K/mm3 (0.0-0.1) Abs Immat Gran (auto) 0.04 H K/mm3 (0.00-0.031) Absolute Neuts (auto) 6.8 H K/mm3 (1.3-6.7) Absolute Nucleated RBC 0.000 K/mm3 (0.0-0.012) Nucleated RBC % 0.0 % (0.0-0.2) Platelet Estimate Adequate (Adequate) Hypochromasia 1+ Anisocytosis 2+ Schistocytes None seen Sodium 135 L mmol/L (137-145) Potassium 4.2 mmol/L (3.4-5.0) Chloride 106 mmol/L (98-107) Carbon Dioxide 23 mmol/L (22-30) Anion Gap 6 mmol/L (4-12) BUN 16 mg/dL (7-17) Creatinine 0.80 mg/dL (0.7-1.0) Estim Creat Clear Calc 118 ml/min Estimated GFR > 60 (59 - ) Glucose 90 mg/dL (65-110) Calcium 8.9 mg/dL (8.4-10.2) Total Bilirubin 0.7 mg/dL (0.2-1.3) AST 173 H U/L (14-36) ALT 190 H U/L (6-35) Alkaline Phosphatase 165 H U/L (38-126) Total Protein 8.0 g/dL (6.3-8.2) Albumin 4.3 g/dL (3.5-5.1) Lipase 240 U/L (23-300) Urine Color Yellow (Yellow) Urine Appearance Cloudy H (Clear) Urine pH 6.0 (5.0-9.0) Ur Specific [place] 1.031 (1.001-1.035) Urine Protein Trace mg/dL (Negative) Urine Glucose (UA) Negative mg/dL (Negative) Urine Ketones Trace H mg/dL (Negative) Ur Blood (Man) Negative (Negative) Urine Nitrate Negative (Negative) Urine Bilirubin Negative (Negative) Urine Urobilinogen 1.0 mg/dL (<2.0) Add Ur Microanalysis Reviewed Leukocyte Esterase Rfl Negative [place]/UL (Negative) Urine RBC 0-2 /hpf (0-2) Urine WBC 11-20 H /hpf (0-3) Ur Squamous Epith Cells Many H /hpf (Few) Urine Bacteria 2+ H /hpf Urine Casts 0-2 Patient hx anesthesia problems: none Family hx anesthesia problems: none Results Review: All pre-operative results and documents have been reviewed as part of the pre-operative evaluation. [facility] Past Medical History Medical History History of pulmonary embolism Morbid obesity with BMI of 50.0-59.9, adult Surgical History Surgical
[2024-02-08] MEDS: LIDOCAINE HCL 2% GEL UROJET 10 ML PKG MUCOUS MEM (08:38)
--- NOTE | 2024-02-08 08:44 | W.PM.PROC2 ---
Procedure Note - Detailed Date of Procedure 02/08/24 Pre-op Diagnosis left UPJ Nephrolithiasis Post-op Diagnosis Same Procedure Performed cystoscopy and left stent placement Surgeon Evan Vera MD Anesthesia General Findings 1cm left proximal stone--UPJ Description of Procedure After proper consent, Patient was brought to OR and postioned lithotomy. Her vaginal vault and lower abdomen was dressed and draped in sterile fashion. Cystoscopy was completed with a 22 [place] scope and the bladder was normal. A retrograde study on the left was completed and a 1cm left proximal stone was outlined. I glidewire was negotiated by the stone and a 4.8 Australian and 26 cm stent was placed. A good curl in the renal pelvis and in the bladder. Her bladder was drained. Implants stent 4.8 Australian by 26 cm Complications No immediate complications Disposition PACU
[2024-02-08 08:47] VITALS: BP 124/69; PULSE 59; RESP 15; TEMP 36.6; O2SAT 97
[2024-02-08] MEDS: LACTATED RINGERS 1,000 ML 30 ML IV CONT (08:47)
[2024-02-08] MEDS: fentaNYL CITRATE INJ (*CRX) 100 MCG/2 ML VIAL 25 MCG IV PUSH ×4 (08:52→09:15)
[2024-02-08 09:00] VITALS: BP 129/68; PULSE 80; RESP 16; O2SAT 99
[2024-02-08 09:15] VITALS: BP 114/69; PULSE 67; RESP 20; O2SAT 98
[2024-02-08] MEDS: diphenhydrAMINE HCl INJ 50 MG/ML VIAL 25 MG IV PUSH (09:29)
--- NOTE | 2024-02-08 10:17 | PM.DS ---
DS: Admitting Diagnosis Discharge Date 02/08/2024 Admitting Diagnosis nephrolithiasis, morbid obesity, uti DS: Discharge Diagnosis Discharge Diagnosis (1) Nephrolithiasis: Code(s): N20.0 - Calculus of kidney Status: Acute (2) Morbid obesity with BMI of 50.0-59.9, adult: Code(s): E66.01 - Morbid (severe) obesity due to excess calories; Z68.43 - Body mass index [BMI] 50.0-59.9, adult Status: Acute (3) UTI (urinary tract infection): Code(s): N39.0 - Urinary tract infection, site not specified Status: Acute Plan Discharge home on Keflex for 1 week as directed by Urology-Dr. Vera DS: Summary Hospital Course Reason for hospitalization: UTI with large left renal stone that is intermittently obstructing Hospital Course: Patient returned again to the hospital with fever, questionable UA findings concerning for infection and large left kidney stone. Urology recommended patient be admitted and have stent placement in the morning. She cannot yet get lithotripsy for attempts to clear intermittently occluding stone due to recent ibuprofen use. Once stent placed, patient ok for discharge on oral abx, will get second dose of Rocephin before discharge. Prescription for Keflex, [place] and Zofran sent to preferred pharmacy. Status at Discharge Cognitive/behavioral status at discharge: awake, alert, oriented and pleasant Functional status at discharge: independent ambulation Overall status at discharge: patient is progressing back to baseline Time Spent with Patient Time attestation: Total time spent providing and/or coordinating discharge services: 40 minutes Time spent: Greater than 30 minutes Exam Narrative: Patient is sitting in a stretcher Const: General: comfortable, no acute distress, well developed, alert, awake and obese Nutritional Appearance: obese morbidly obese Orientation/consciousness: patient oriented x3 HENMT: Head: normal to inspection, normocephalic and atraumatic Ears: hearing grossly normal bilaterally Face/Nose/Sinus: normal facial exam Face and sinus: normal facial exam Eyes: General: appearance normal, both eyes and all related structures Pupils: Equal, round and reactive pupils present EOM: EOMs intact bilaterally Neck: Neck: full ROM, no lymphadenopathy and no JVD Thyroid: thyroid normal Lymphatic: no lymphadenopathy noted Resp: Effort & Inspection: normal respiratory effort and able to speak in complete sentences Auscultation: clear to auscultation bilaterally Cardio: Jugular venous distension: no JVD Rate: regular rate Rhythm: regular rhythm Heart sounds: S1 normal heart sound present and S2 normal heart sound present GI: Other: Left flank tenderness to deep palpation : General: Yes deferred Skin: Rashes: no rashes Wounds: no wounds Neuro: General: patient oriented x3 and CN's II-XI intact bilaterally Cranial nerves: Yes CN's II-XII intact bilaterally and Yes Equal, round and reactive pupils present Cognition (Neuro): normal cognition Speech: normal speech Gait exam (Neuro): Normal gait present Motor exam (neuro): 5/5 motor strength present throughout Extrem: General: normal to inspection, full ROM, no joint enlargement and no pedal edema DS: Data Data Completed and Pending Completed studies during hospitalization: abdomen x-ray, retrograde pyelogram Pending studies at discharge: urine culture Labs on day of discharge: Labs from last 24 hours 02/07/24 02/07/24 19:00 18:53 WBC 10.5 H RBC 4.54 Hgb 10.1 L Hct 34.6 L MCV 76.2 L MCH 22.2 L MCHC 29.2 L RDW 18.5 H Plt Count 316 MPV 10.5 H Immature Gran % (Auto) 0.4 Neut % (Auto) 64.1 Lymph % (Auto) 26.2 [place] % (Auto) 6.0 Eos % (Auto) 2.7 Baso % (Auto) 0.6 Lymph # (Auto) 2.75 [place] # (Auto) 0.6 Eos # (Auto) 0.3 Baso # (Auto) 0.1 Abs Immat Gran (auto) 0.04 H Absolute Neuts (auto) 6.8 H Absolute Nucleated RBC 0.000 Nucl
--- NOTE | 2024-03-08 11:58 | WPDHPUPDATE1 ---
History and Physical Update Update Date/Time: 03/08/24 11:58 History and Physical has been reviewed, including an updated exam of the patient. There are NO changes in the patient's condition. Risks, benefits, and alternatives have been discussed and questions answered. Patient agrees to proceed with procedure. This update applies to procedure done on 02/08/2024
== END 2024-02-08 13:30 | disposition home or self-care (01) ==
LOC: ANHED 20:54 → ANH2MED 02-08 10:22
PROVIDERS: Urology; Admitting Provider Internal Medicine; Emergency Provider Physician Assistant; Visit Provider Internal Medicine
PROC: (CPT 52352; principal; 2024-02-08 08:30)
DX: N20.1 Calculus of ureter (principal); N39.0 Urinary tract infection, site not specified; R74.01 Elevation of levels of liver transaminase levels; Z79.51 Long term (current) use of inhaled steroids; Z86.711 Personal history of pulmonary embolism; E66.01 Morbid (severe) obesity due to excess calories; Z68.42 Body mass index [BMI] 45.0-49.9, adult
CPT/HCPCS: 52332; 36415; 74018; 74420; 80053; 81001; 81025; 83690; 85025; 87086; 87088; 96361; 96365; 96375; 99285; A9270; C1758; C1769; C2617; G0378; G0379; J0696; J1100; J1200; J2270; J2405; J2704; J3010; J7030; J7120; Q9966

== ENCOUNTER 2024-02-23 16:09 | Inpatient (IN) | payer OTHER, SELFPAY ==
--- NOTE | ~2024-02-23 | CT_ITS ---
EXAMINATION: CT abdomen pelvis wo con DATE: 02/23/2024 17:27 INDICATION: Flank pain. History of stones. TECHNIQUE: Computed tomography (CT) of the abdomen and pelvis was performed without intravenous contr ast. The dose-length product was 1741.34 mGy-cm. Automated exposure control and iterative reconstruct ion technique were employed. COMPARISON: CT dated 01/31/2024. FINDINGS: There is a left internal ureteral stent in expected position. There is periureteral fluid a nd edema. Cannot exclude ascending urinary tract infection. There is a nonobstructing 6 mm stone in t he left renal pelvis. Lung bases unremarkable. Heart size normal. No significant pleural or pericardial effusion. The liver , spleen, pancreas, adrenal glands and right kidney are unremarkable. Gallbladder is present. Nonobst ructive bowel gas pattern. No free air or free fluid. IMPRESSION: 1. Left periureteral fluid/edema. Left internal ureteral stent in expected position. Consider ascendi ng urinary tract infection in the appropriate clinical setting. 2: Nonobstructing left nephrolithiasis. Reviewed, dictated and finalized at location A. IMPRESSION: 1. Left periureteral fluid/edema. Left internal ureteral stent in expected posi tion. Consider ascending urinary tract infection in the appropriate clinical se tting. 2: Nonobstructing left nephrolithiasis.
[2024-02-23 16:38] VITALS: BP 138/81; PULSE 78; RESP 16; TEMP 36.6; O2SAT 100
[2024-02-23 16:44] LABS: Basophils Absolute Auto 0.1 K/mm3 (0.0-0.1); Basophils Percent Auto 0.6 % (0.2-1.2); Eosinophils Absolute Auto 0.3 K/mm3 (0-0.3); Hematocrit 37.9 % (37.0-47.0); Hemoglobin 11.3 g/dL (12.0-15.0); Immature Granulocyte Absolute 0.04 K/mm3 (0.00-0.031); Immature Granulocyte Percent A 0.4 % (0-0.5); Lymphocytes Absolute Auto 2.56 K/mm3 (0.9-3.2); Lymphocytes Percent Auto 26.1 % (18.3-44.2); Mean Corpuscular HGB Conc 29.8 g/dl (32-36); Mean Corpuscular Hemoglobin 22.8 pg (26-34); Mean Corpuscular Volume 76.6 fl (80-100); Mean Platelet Volume 10.4 fl (7.4-10.4); Monocytes Absolute Auto 0.6 K/mm3 (0.1-0.6); Monocytes Percent Auto 5.8 % (2.6-8.5); Neutrophils Absolute Auto 6.3 K/mm3 (1.3-6.7); Neutrophils Percent Auto 64.1 % (45.5-73.1); Platelet Count Result 378 k/mm3 (150-375); Red Blood Count 4.95 M/mm3 (4.2-5.4); Red Cell Distribution Width 18.8 % (11.5-14.5); White Blood Count 9.8 K/mm3 (4.5-10.0)
--- NOTE | 2024-02-23 16:45 | ED.ABDPAIN ---
HPI - Abdominal Pain General Chief Complaint: Abdominal Pain Stated Complaint: kidney stone Time Seen by Provider: 02/23/24 16:17 History of Present Illness HPI narrative: Patient is a 28-year-old female with history of provoked saddle pulmonary embolism due to COVID-19 and , not currently on blood thinners, here with left flank pain and dysuria. Patient notes that on 02/06 she was seen here at this hospital, diagnosed with a kidney stone, was unable to receive intervention in an outpatient setting due to insurance, was admitted to the hospital and received a stent by Dr. Vera. Patient has continued to try and get the stent removed outpatient however has been unable to get anything set up. Four days ago she began having left sided flank pain and increased urinary frequency. Over the last few days she has since developed nausea, vomiting and generally feeling unwell with worsening pain. She additionally notes decreased urination. Related Data Allergies Allergy/AdvReac Type Severity Reaction Status Date / Time No Known Allergies Allergy Verified 02/23/24 16:45 Review of Systems Review of Systems: All systems reviewed & are unremarkable except as noted in HPI and below PMFSH Past Medical History Medical History History of pulmonary embolism Morbid obesity with BMI of 50.0-59.9, adult Surgical History Surgical History Previous section Family History Family History Other Unknown family medical history Social History Social History Smoking status: Never smoker Second hand tobacco smoke exposure: Yes Alcohol intake: current Drinks per week: 2 Substance use: former Substance use type: marijuana Last use: 11/2023 Do You Feel Safe in your Home?: Yes Lack of Transportation: No Lack of Food: Never True Current Housing: I Have Housing Concerned About Future Housing: No Difficulty Paying Gas/Electric Bills: No Difficulty Paying for Meds: No Currently Unemployed: No Education: Trade/Vocational Certificate Difficulty w/ Childcare or Family Care: No Living arrangements: with family Occupation/Education: occupation Gender identity (if verbalized by the patient): Female Sexual Orientation (if Verbalized by the Patient): Straight or Heterosexual Spiritual care concerns: No Agree to blood products: Yes Exam Narrative: GENERAL: Well-appearing, well-nourished, and in no acute distress. HEAD: Normocephalic, atraumatic. EYES: PERRLA and EOMI. ENT: Nares clear. Mucous membranes moist. NECK: Supple. CHEST: Clear to auscultation. No respiratory distress. HEART: Regular rate and rhythm. Normal peripheral pulses. ABDOMEN: Soft, nontender, nondistended. Left CVA tenderness. Left sided abdominal tenderness. EXTREMITIES: Normal range of motion. No edema. SKIN: Warm, dry, no rash. NEURO: No focal deficits. Alert and oriented x3. PSYCH: Normal mood and affect. Course Course Emergency Course: Chart review performed. Patient here wit kidney stone, had stent earlier this month, reportedly had stent placed. Has had increased urinary frequency, nausea, vomiting, flank pain. Triage vitals normal. DC summary from 02/07/24 reviewed. She had been hospitalized for a large left renal stone and UTI questionable for infection. Urology placed sent. Patient seen evaluated, concern for UTI vs stent migration or complication. Will do lab work, CT, antiemetics, IV fluids. CBC unremarkable, renal function normal. UA consistent with UTI. Rocephin ordered. CT shows left periureteral fluid/edema, stent in expected position, consider ascending UTI in appropriate clinical setting. Urology consulted. Spoke with Dr. Rueda from urology, recommends admission for pyelonep
[2024-02-23 16:54] LABS: Alanine Aminotransferase 19 U/L (6-35); Albumin Level 4.5 g/dL (3.5-5.1); Alkaline Phosphatase 105 U/L (38-126); Anion Gap 9 mmol/L (4-12); Aspartate Amino Transferase 21 U/L (14-36); Bilirubin,Total 0.4 mg/dL (0.2-1.3); Blood Urea Nitrogen 13 mg/dL (7-17); Calcium 8.6 mg/dL (8.4-10.2); Carbon Dioxide 22 mmol/L (22-30); Chloride 110 mmol/L (98-107); Estimated CRCL calculation 134 ml/min; Estimated Glomerular Filt Rate > 60; Glucose 101 mg/dL (65-110); Lipase 60 U/L (23-300); Potassium 3.9 mmol/L (3.4-5.0); Sodium 141 mmol/L (137-145)
[2024-02-23 17:32] LABS: Appearance Urine Turbid (Clear); Bacteria Urine 4+ /hpf; Bilirubin Urine Negative (Negative); Blood Urine 3+ (Negative); Color Urine Dark Yellow (Yellow); Glucose Urine UA Negative (Negative); Ketones Urine Negative (Negative); Leukocyte Esterase Ur 1+ LEU/UL (Negative); Need Manual Microscopic Reviewed; Nitrate Urine Negative (Negative); Protein Urine 4+ mg/dL (Negative); RBC Urine >100 /hpf (0-2); Squamous Epithelial Cell Urine Many /hpf (Few); WBC Urine 51-100 /hpf (0-3)
[2024-02-23 17:33] LABS: Add Urine Microscopic? YES; Specific Grav Ur 1.031 (1.001-1.035)
[2024-02-23] MEDS: LACTATED RINGERS 1,000 ML 999 ML IV CONT (17:55)
[2024-02-23] MEDS: ONDANSETRON INJ 4 MG/2 ML VIAL IV PUSH (17:56)
[2024-02-23] MEDS: MORPHINE SULFATE (*CRX) 4 MG/ML INJ IV PUSH (17:57)
[2024-02-23 18:03] VITALS: BP 113/73; PULSE 75; RESP 16; O2SAT 99
[2024-02-23 18:57] VITALS: BP 123/55; PULSE 75; RESP 15; O2SAT 100
[2024-02-23 19:08] VITALS: BP 123/55; PULSE 85; RESP 16; TEMP 36.4; O2SAT 100
--- NOTE | 2024-02-23 19:13 | PC.NURSE ---
Bedside report given to Rafa RN, all questions answered
[2024-02-23 20:04] VITALS: BP 142/54; PULSE 79; RESP 16; O2SAT 100
[2024-02-23] MEDS: LACTATED RINGERS 1,000 ML 100 ML IV CONT (20:16)
--- NOTE | 2024-02-23 21:18 | ADMGEN ---
This patient, Celia Xavier, was admitted to [facility] Surg Room 330-01. Patient/family oriented to hospital policies and general routines including ID bracelet, bed and alarms, visiting hours, pain management, procedures, bathroom and other care routines, personal items, smoking policy, room service/diet, and visiting hours. Information on how to activate the Rapid Response Team has been discussed. Patient/Family are encouraged to report perceived risks to care and to ask questions if they do not understand what they are told or what they should do.
[2024-02-23 21:30] VITALS: BP 134/53; PULSE 64; RESP 20; O2SAT 99
--- NOTE | 2024-02-23 23:00 | PM.IMHP ---
H&P: HPI History of Present Illness Date/Time: 02/23/24 21:56 Chief Complaint: Left flank pain, recent kidney stone with stent Narrative: 28-year-old female with a past medical history of morbid obesity, saddle pulmonary embolism associated with COVID and recent diagnosis of obstructing kidney stone who presented to the ER via private vehicle due to left flank pain. She reports that she began having 1st week of January came to the ER on the had a CT scan which demonstrated a nonobstructing 9 x 4 x 4 mm stone in the renal pelvis. It was accompanied by inflammatory stranding but urine culture at that time was negative. She was discharged home to follow-up with Urology as outpatient but had difficulty finding urologist at accept her insurance so subsequently was readmitted to the hospital on the stent placement by Dr. Vera. She reported that after the procedure she had a few days of colic associated with the stent but this improved until fiber 6 days ago when she began having similar pain starting in the left upper quadrant radiating through to the back. She reported that the pain was colicky in nature and was sharp and intermittently severe in intensity. Currently her pain is a 6-7/10 in intensity. She reports that sometimes she has slight improvement with position changes. She reports that for the last 4-5 days she has been having dysuria and increased urinary frequency and urgency. Today she began having vomiting and has had several episodes of being of yellow material. Vomiting has resolved osullivan she received Zofran in the ER. She reports she still has mild intermittent nausea. She denies any recent gross hematuria. She was having some mild hematuria when the stent was 1st placed. She was having subjective hot flashes and sweats but never checked her temperature at home. She has been afebrile since presentation. Her white count was normal in the ER. Her UA today demonstrated 1+ leukocyte esterase greater than 100 RBCs 51-100 wbc's many squamous cells and 4+ bacteria. The patient's prior UAs were slightly abnormal but her urine cultures each time were negative for growth. She denies drinking any tea, coffee or soda as a general rule. She thinks that she drinks plenty of water. She denies a family history of kidney stones. Review of Systems Review of Systems: 12 systems were reviewed with pertinent positives and negatives per HPI. Except as documented in the HPI, all other systems were reviewed and are negative. She had a crowded posterior oropharynx but denies any excessive daytime sleepiness, snoring or insomnia. COUNTS INCLUDE 234 BEDS AT THE [facility] Past Medical History Medical History (Updated 02/23/24 @ 23:38 by Arina Cazares DO) Hepatitis C History of pulmonary embolism Patient was and had active COVID infection resulting and saddle pulmonary embolism Morbid obesity with BMI of 50.0-59.9, adult induced hypertension Surgical History Surgical History (Updated 02/23/24 @ 23:38 by Arina Cazares DO) History of X4 Family History Family History (Updated 02/23/24 @ 23:40 by Arina Cazares DO) Father , at age 49 Acute myocardial infarction Mother Accidental in home, Onset Age: 49 House fire Social History Social History (Updated 02/23/24 @ 23:42 by Arina Cazares DO) Social History: She lives with her of 10 years and their 4 children. As of January 2020 for patient's children are 9, 3 years, 22 months and 8-month-old respectfully. 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 She is a lifelong nonsmoker. She does smoke marijuana on occasion but has not done so in many years. She drinks alcohol about once a month. When she does drink she drinks to get drunk. Code status: Full code Surrogate decision maker: Smoking status: Never smoker Second hand tobacco smoke exposure: Yes Alcohol intake: current Drinks per week: 2 Substance use: f
[2024-02-23] MEDS: HYDROcodone/acetaminophen (*CRX) 5-325 MG TABLET 1 TAB PO (23:17)
[2024-02-24] MEDS: diphenhydrAMINE HCl CAP 25 MG CAPSULE PO ×2 (02:39→23:51)
[2024-02-24 05:45] VITALS: BP 143/87; PULSE 90; RESP 18; TEMP 36.9; O2SAT 98
[2024-02-24] MEDS: HYDROcodone/acetaminophen (*CRX) 5-325 MG TABLET 1 TAB PO ×3 (07:37→23:51)
[2024-02-24] MEDS: ONDANSETRON INJ 4 MG/2 ML VIAL IV PUSH ×2 (07:40→18:46)
[2024-02-24] MEDS: ENOXAPARIN 40 MG/0.4 ML SYRINGE SUB-Q (07:41)
[2024-02-24] MEDS: LACTATED RINGERS 1,000 ML 100 ML IV CONT (07:43)
[2024-02-24 08:22] LABS: Basophils Absolute Auto 0.1 K/mm3 (0.0-0.1); Basophils Percent Auto 0.8 % (0.2-1.2); Eosinophils Absolute Auto 0.3 K/mm3 (0-0.3); Eosinophils Percent Auto 3.6 % (0-4.4); Hematocrit 38.2 % (37.0-47.0); Hemoglobin 11.2 g/dL (12.0-15.0); Immature Granulocyte Absolute 0.02 K/mm3 (0.00-0.031); Immature Granulocyte Percent A 0.2 % (0-0.5); Lymphocytes Absolute Auto 2.54 K/mm3 (0.9-3.2); Lymphocytes Percent Auto 29.7 % (18.3-44.2); Mean Corpuscular HGB Conc 29.3 g/dl (32-36); Mean Corpuscular Hemoglobin 22.8 pg (26-34); Mean Corpuscular Volume 77.6 fl (80-100); Mean Platelet Volume 10.7 fl (7.4-10.4); Monocytes Absolute Auto 0.7 K/mm3 (0.1-0.6); Monocytes Percent Auto 7.6 % (2.6-8.5); Neutrophils Percent Auto 58.1 % (45.5-73.1); Platelet Count Result 375 k/mm3 (150-375); Red Blood Count 4.92 M/mm3 (4.2-5.4); Red Cell Distribution Width 18.5 % (11.5-14.5); White Blood Count 8.6 K/mm3 (4.5-10.0)
[2024-02-24 08:34] LABS: Anion Gap 7 mmol/L (4-12); Blood Urea Nitrogen 12 mg/dL (7-17); Calcium 8.8 mg/dL (8.4-10.2); Carbon Dioxide 21 mmol/L (22-30); Chloride 109 mmol/L (98-107); Estimated CRCL calculation 134 ml/min; Estimated Glomerular Filt Rate > 60; Glucose 96 mg/dL (65-110); Potassium 4.2 mmol/L (3.4-5.0); Sodium 137 mmol/L (137-145)
[2024-02-24 08:49] LABS: Anisocytosis 1+; Platelet Estimate Adequate (Adequate); Schistocytes None Seen
[2024-02-24 08:52] LABS: Hypochromasia 1+; Ovalocytes 1+
--- NOTE | 2024-02-24 09:41 | WPDURCON ---
Assessment and Plan Assessment and plan (1) Pyelonephritis: Code(s): N12 - Tubulo-interstitial nephritis, not specified as acute or chronic Status: Acute Assessment and Plan: Urine culture pending. Continue empiric antibiotics while awaiting results. (2) Ureteral stent present: Code(s): Z96.0 - Presence of urogenital implants Status: Acute Assessment and Plan: Left ureteral stent in expected position with no hydro. Will need outpatient ESWL and stent removal. Will refer to [facility] in [place] for outpatient procedure given her insurance. (3) Left nephrolithiasis: Code(s): N20.0 - Calculus of kidney Status: Acute Assessment and Plan: 6 mm left renal pelvis stone. Will need outpatient ESWL as above. Urology Consult Note HPI Date Seen: 02/24/24 Requesting Physician: Arina Cazares DO Primary Care Provider: UNKNOWN,DOCTOR Consult Narrative Narrative: Celia Xavier is a 28 year old female with a history of kidney stones who was recently admitted 02/08/24 with left renal pelvis stone and underwent cystoscopy and left ureteral stent placement. She was instructed to follow up for ESWL and stent removal but has not been able to do so as of yet. She presented to the ER on 02/23/24 with complaints of left flank pain and frequency. On arrival, she was afebrile and vital signs were stable, WBC 9.8, creatinine 0.7, UA with 1+ leukocytes, negative nitrites, 3+ blood, and 51-100 WBC. Urine culture is pending. A CT of the abd/pelvis was completed which showed left internal ureteral stent in expected position with periureteral edema concerning for possible ascending UTI as well as nonobstructing 5 mm left renal pelvis stone. At the time of my evaluation, she reports symptoms are well controlled. She has some mild left flank discomfort. She denies dysuria or hematuria. No nausea, vomiting, fever, chills. Review of Systems Review of Systems: All systems reviewed & are unremarkable except as noted in HPI and below PMFSH Past Medical History Medical History (Updated 02/24/24 @ 16:19 by Ayesha Malhotra PA-C) Hepatitis C History of pulmonary embolism Patient was and had active COVID infection resulting and saddle pulmonary embolism Morbid obesity with BMI of 50.0-59.9, adult induced hypertension Surgical History Surgical History (Updated 02/23/24 @ 23:38 by Arina Cazares DO) History of X4 Family History Family History (Updated 02/23/24 @ 23:40 by Arina Cazares DO) Father , at age 49 Acute myocardial infarction Mother Accidental in home, Onset Age: 49 House fire Social History Social History (Updated 02/23/24 @ 23:42 by Arina Cazares DO) Social History: She lives with her of 10 years and their 4 children. As of January 2020 for patient's children are 9, 3 years, 22 months and 8-month-old respectfully. 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 She is a lifelong nonsmoker. She does smoke marijuana on occasion but has not done so in many years. She drinks alcohol about once a month. When she does drink she drinks to get drunk. Code status: Full code Surrogate decision maker: Smoking status: Never smoker Second hand tobacco smoke exposure: Yes Alcohol intake: current Drinks per week: 2 Substance use: former Substance use type: marijuana Last use: 11/2023 Do You Feel Safe in your Home?: Yes Lack of Transportation: No Lack of Food: Never True Current Housing: I Have Housing Concerned About Future Housing: No Difficulty Paying Gas/Electric Bills: No Difficulty Paying for Meds: No Currently Unemployed: No Education: Trade/Vocational Certificate Difficulty w/ Childcare or Family Care: No Living arrangements: with family Occupation/Education: occupation 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
[2024-02-24 13:46] VITALS: O2SAT 95
[2024-02-24 14:00] VITALS: BP 153/67; PULSE 69; RESP 18; TEMP 35.8; O2SAT 99
--- NOTE | 2024-02-24 17:03 | PM.IMPN ---
Progress Note: A&P Assessment and Plan (1) Pyelonephritis: Code(s): N12 - Tubulo-interstitial nephritis, not specified as acute or chronic Status: Acute Assessment and Plan: Patient with recent instrumentation of the kidney. She presents with left flank pain and dysuria. UA is concerning for UTI. UCx collected. Rocephin started. CT of the abdomen and pelvis shows left periureteral fluid and edema. Consider ascending UTI Normal WBC and no fevers here. Renal function normal. UCx pending. Follow up on UCx results. Urology consulted and appreciate their input (2) Left nephrolithiasis: Code(s): N20.0 - Calculus of kidney Status: Acute Assessment and Plan: CT scan shows of nonobstructing left nephrolithiasis. Left internal ureteral stent is in expected position. Further management as outpatient once urine infection clears. (3) Ureteral stent present: Code(s): Z96.0 - Presence of urogenital implants Status: Acute Assessment and Plan: As above Plan Anemia - minor microcytic anemia probably related to iron loss from menses. UPT negative (02/22). Add oral iron Code status -full DVT prophylax -Lovenox Subjective Date/time seen: 02/24/24 17:03 Interval history: 28yo female with morbid obesity, saddle pulmonary embolism associated with COVID and recent diagnosis of obstructing kidney stone s/p cystoscopy and left stent placement on 02/08/24 who presented to the ER via private vehicle due to left flank pain. ? Feels better overall. Persistent left flank pain. Had nausea this mornig requring Zofran. Able to eat today. Had diarrhea prior to admission but not today. Pain controlled. Exam Narrative: AF 96.4 153/67 69 18 99% ra Gen - NARD Chest - CTA bilaterally, nml RR CV - RRR S1/S2 Abd - Soft, obese, NT Back - no CVA tenderness Ext - No pedal edema Psych - Nml mood and affect Skin - Warm and dry Objective Data Vital Signs Vital Signs: Vital Signs - 24 hr 02/23/24 18:03 02/23/24 18:57 02/23/24 19:08 Temperature 97.5 F L Pulse Rate 75 75 85 Respiratory Rate 16 15 16 Blood Pressure 113/73 123/55 L 123/55 L Pulse Oximetry 99 100 100 Oxygen Delivery 02/23/24 20:04 02/23/24 21:30 02/23/24 22:55 Temperature Pulse Rate 79 64 Respiratory Rate 16 20 Blood Pressure 142/54 H 134/53 L Pulse Oximetry 100 99 Oxygen Delivery Room Air 02/24/24 05:45 02/24/24 13:46 02/24/24 14:00 Temperature 98.4 F 96.4 F L Pulse Rate 90 69 Respiratory Rate 18 18 Blood Pressure 143/87 H 153/67 H Pulse Oximetry 98 95 99 Oxygen Delivery Room Air Intake/Output Intake/Output: Intake & Output 02/21/24 02/22/24 02/23/24 02/24/24 23:59 23:59 23:59 23:59 Intake Total 1050 2370 Balance 1050 2370 Meds/Results Medications: Active Medications Generic Name Dose Route Start Last Admin Trade Name Freq PRN Reason Stop Dose Admin Hydrocodone Bitart/Acetaminophen 1 tab 02/23/24 22:59 02/24/24 13:21 Hydrocodone/Acetaminophen (*Crx) 5-325 Mg Tablet PO 1 tab Q6H PRN Administration Pain Rated 4-6 Diphenhydramine HCl 25 mg 02/24/24 02:25 02/24/24 02:39 Diphenhydramine Hcl Cap 25 Mg Capsule PO 25 mg Q6H PRN Administration Itching Enoxaparin Sodium 40 mg 02/24/24 09:00 02/24/24 07:41 Enoxaparin 40 Mg/0.4 Ml Syringe SUB-Q 40 mg DAILY NICHOL Administration Lactated Ringer's 1,000 mls @ 100 mls/hr 02/23/24 20:10 02/24/24 07:43 Lr - Lactated Ringers Iv IV CONT 100 mls/hr .Q10H NICHOL Administration Ceftriaxone Sodium 1 gm in 50 mls @ 100 mls/hr 02/24/24 18:00 Rocephin 1 Gm/Ns 50 Ml IVPB Q24H NICHOL Ibuprofen 400 mg 02/23/24 22:59 Ibuprofen 400 Mg Tablet PO Q6H PRN Pain Rated 1-3 or fever Morphine Sulfate 2 mg 02/23/24 22:59 Morphine Sulfate (*Crx) 2 Mg/Ml Inj IV PUSH Q4H PRN Pain Rated 7-10 Ondansetron HCl 4 mg 02/23/24 22:59 02/24/24 07:4
[2024-02-24] MEDS: MORPHINE SULFATE (*CRX) 2 MG/ML INJ IV PUSH (18:50)
[2024-02-24 21:12] VITALS: BP 132/81; PULSE 69; RESP 13; TEMP 36.7; O2SAT 100
[2024-02-25 05:22] VITALS: BP 101/84; PULSE 102; RESP 13; TEMP 36.2; O2SAT 96
[2024-02-25] MEDS: HYDROcodone/acetaminophen (*CRX) 5-325 MG TABLET 1 TAB PO ×2 (05:36→20:33)
[2024-02-25] MEDS: FERROUS SULFATE 325 MG TABLET DR PO (08:43)
[2024-02-25] MEDS: ENOXAPARIN 40 MG/0.4 ML SYRINGE SUB-Q (08:43)
--- NOTE | 2024-02-25 13:37 | WPDUROPN2 ---
Progress Note: A&P Assessment and Plan (1) Pyelonephritis: Code(s): N12 - Tubulo-interstitial nephritis, not specified as acute or chronic Status: Acute Assessment and Plan: Urine culture pending. Continue empiric antibiotics while awaiting results. Following final culture, okay for discharge from urologic standpoint on culture specific PO antibiotics. (2) Ureteral stent present: Code(s): Z96.0 - Presence of urogenital implants Status: Acute Assessment and Plan: Left ureteral stent in expected position with no hydro. Will need outpatient ESWL and stent removal. Will refer to [facility] in [place] for outpatient procedure given her insurance. (3) Left nephrolithiasis: Code(s): N20.0 - Calculus of kidney Status: Acute Assessment and Plan: 6 mm left renal pelvis stone. Will need outpatient ESWL as above. Subjective Subjective Date/Time Seen: 02/25/24 13:37 Interval history: Celia is feeling well today. No acute events noted overnight. She denies flank pain or back pain. No dysuria or hematuria. Denies nausea, vomiting, fever, or chills. Review of Systems Review of Systems: All systems reviewed & are unremarkable except as noted in HPI and below Exam Narrative: General: Awake, alert, comfortable, no acute distress HEENT: Normocephalic, atraumatic, sclerae anicteric Respiratory: Normal respiratory effort, no accessory muscle use Abdomen: Nondistended, soft, nontender Skin: Normal coloration, warm and dry Neurologic: No focal neuro deficits noted Psychiatric: Appropriate mood and affect, judgment and insight intact Objective Data Vital Signs Vital Signs: Vital Signs - 24 hr 02/24/24 13:46 02/24/24 14:00 02/24/24 21:12 Temperature 96.4 F L 98.1 F Pulse Rate 69 69 Respiratory Rate 18 13 Blood Pressure 153/67 H 132/81 Pulse Oximetry 95 99 100 Oxygen Delivery Room Air 02/25/24 05:22 02/25/24 08:45 Temperature 97.1 F L Pulse Rate 102 H Respiratory Rate 13 Blood Pressure 101/84 Pulse Oximetry 96 Oxygen Delivery Room Air Intake/Output Intake/Output: Intake & Output 02/22/24 02/23/24 02/24/24 02/25/24 23:59 23:59 23:59 23:59 Intake Total 1050 5780 6008 Balance 1050 5780 2278 Meds/Results Medications: Active Medications Generic Name Dose Route Start Last Admin Trade Name Freq PRN Reason Stop Dose Admin Hydrocodone Bitart/Acetaminophen 1 tab 02/23/24 22:59 02/25/24 05:36 Hydrocodone/Acetaminophen (*Crx) 5-325 Mg Tablet PO 1 tab Q6H PRN Administration Pain Rated 4-6 Diphenhydramine HCl 25 mg 02/24/24 02:25 02/24/24 23:51 Diphenhydramine Hcl Cap 25 Mg Capsule PO 25 mg Q6H PRN Administration Itching Enoxaparin Sodium 40 mg 02/24/24 09:00 02/25/24 08:43 Enoxaparin 40 Mg/0.4 Ml Syringe SUB-Q 40 mg DAILY NICHOL Administration Ferrous Sulfate 325 mg 02/25/24 09:00 02/25/24 08:43 Ferrous Sulfate [address] PO 325 mg DAILY NICHOL Administration Ceftriaxone Sodium 1 gm in 50 mls @ 100 mls/hr 02/24/24 18:00 02/24/24 18:42 Rocephin 1 Gm/Ns 50 Ml IVPB Infused Q24H NICHOL Infusion Ibuprofen 400 mg 02/23/24 22:59 Ibuprofen 400 Mg Tablet PO Q6H PRN Pain Rated 1-3 or fever Morphine Sulfate 2 mg 02/23/24 22:59 02/24/24 18:50 Morphine Sulfate (*Crx) 2 Mg/Ml Inj IV PUSH 2 mg Q4H PRN Administration Pain Rated 7-10 Ondansetron HCl 4 mg 02/23/24 22:59 02/24/24 18:46 Ondansetron Inj 4 Mg/2 Ml Vial IV PUSH 4 mg Q4H PRN Administration Nausea And Vomiting Radiology Results: ITS Impressions Abdomen/Pelvis CT 02/23/24 17:28 IMPRESSION: 1. Left periureteral fluid/edema. Left internal ureteral stent in expected position. Consider ascending urinary tract infection in the appropriate clinical setting. 2: Nonobstructing left nephrolithiasis.
[2024-02-25 14:00] VITALS: BP 125/51; PULSE 81; RESP 16; TEMP 36.2; O2SAT 91
--- NOTE | 2024-02-25 18:31 | PM.IMPN ---
Progress Note: A&P Assessment and Plan (1) Pyelonephritis: Code(s): N12 - Tubulo-interstitial nephritis, not specified as acute or chronic Status: Acute Assessment and Plan: Patient with recent instrumentation of the kidney. She presents with left flank pain and dysuria. UA is concerning for UTI. UCx collected. Rocephin started. CT of the abdomen and pelvis shows left periureteral fluid and edema. Consider ascending UTI Normal WBC and no fevers here. Renal function normal. UCx pending. Follow up on UCx results. Urology consulted and appreciate their input (2) Left nephrolithiasis: Code(s): N20.0 - Calculus of kidney Status: Acute Assessment and Plan: CT scan shows of nonobstructing left nephrolithiasis. Left internal ureteral stent is in expected position. Further management as outpatient once urine infection clears. (3) Ureteral stent present: Code(s): Z96.0 - Presence of urogenital implants Status: Acute Assessment and Plan: As above Plan Anemia - minor microcytic anemia probably related to iron loss from menses. UPT negative (02/22). Add oral iron Assuming care on 02/25/2024. Continue ceftriaxone, awaiting urine culture to result. Code status -full DVT prophylax -Lovenox Subjective Date/time seen: 02/25/24 18:31 Interval history: No complaints. Denies abdominal pain. She does admit to left flank pain. Denies fevers or chills. Review of Systems Review of Systems: All systems reviewed & are unremarkable except as noted in HPI and below (Subjective) Exam Const: General: comfortable and no acute distress Other: Obese Eyes: Pupils: Equal, round and reactive pupils present Neck: Neck: supple Resp: Effort & Inspection: normal respiratory effort Auscultation: clear to auscultation bilaterally Cardio: Rate: regular rate Rhythm: regular rhythm Objective Data Vital Signs Vital Signs: Vital Signs - 24 hr 02/24/24 21:12 02/25/24 05:22 02/25/24 08:45 Temperature 98.1 F 97.1 F L Pulse Rate 69 102 H Respiratory Rate 13 13 Blood Pressure 132/81 101/84 Pulse Oximetry 100 96 Oxygen Delivery Room Air 02/25/24 14:00 Temperature 97.1 F L Pulse Rate 81 Respiratory Rate 16 Blood Pressure 125/51 L Pulse Oximetry 91 Oxygen Delivery Intake/Output Intake/Output: Intake & Output 02/22/24 02/23/24 02/24/24 02/25/24 23:59 23:59 23:59 23:59 Intake Total 1050 5780 3500 Output Total 5 Balance 1050 5780 3495 Meds/Results Medications: Active Medications Generic Name Dose Route Start Last Admin Trade Name Freq PRN Reason Stop Dose Admin Hydrocodone Bitart/Acetaminophen 1 tab 02/23/24 22:59 02/25/24 05:36 Hydrocodone/Acetaminophen (*Crx) 5-325 Mg Tablet PO 1 tab Q6H PRN Administration Pain Rated 4-6 Diphenhydramine HCl 25 mg 02/24/24 02:25 02/24/24 23:51 Diphenhydramine Hcl Cap 25 Mg Capsule PO 25 mg Q6H PRN Administration Itching Docusate Sodium 100 mg 02/25/24 21:00 Docusate Sodium 100 Mg Capsule PO Q12HR NICHOL Enoxaparin Sodium 40 mg 02/24/24 09:00 02/25/24 08:43 Enoxaparin 40 Mg/0.4 Ml Syringe SUB-Q 40 mg DAILY NICHOL Administration Ferrous Sulfate 325 mg 02/25/24 09:00 02/25/24 08:43 Ferrous Sulfate [address] PO 325 mg DAILY NICHOL Administration Ceftriaxone Sodium 1 gm in 50 mls @ 100 mls/hr 02/24/24 18:00 02/25/24 17:19 Rocephin 1 Gm/Ns 50 Ml IVPB 100 mls/hr Q24H NICHOL Administration Ibuprofen 400 mg 02/23/24 22:59 Ibuprofen 400 Mg Tablet PO Q6H PRN Pain Rated 1-3 or fever Morphine Sulfate 2 mg 02/23/24 22:59 02/24/24 18:50 Morphine Sulfate (*Crx) 2 Mg/Ml Inj IV PUSH 2 mg Q4H PRN Administration Pain Rated 7-10 Ondansetron HCl 4 mg 02/23/24 22:59 02/24/24 18:46 Ondansetron Inj 4 Mg/2 Ml Vial IV PUSH 4 mg Q4H PRN Administration Nausea And Vomiting Radiolog
[2024-02-25] MEDS: diphenhydrAMINE HCl CAP 25 MG CAPSULE PO (20:35)
[2024-02-25 21:06] VITALS: BP 134/51; PULSE 81; RESP 16; TEMP 36.4; O2SAT 97
[2024-02-26 05:18] VITALS: BP 122/54; PULSE 76; RESP 16; TEMP 36.6; O2SAT 100
[2024-02-26 06:30] LABS: Basophils Absolute Auto 0.1 K/mm3 (0.0-0.1); Basophils Percent Auto 0.9 % (0.2-1.2); Eosinophils Absolute Auto 0.3 K/mm3 (0-0.3); Eosinophils Percent Auto 4.3 % (0-4.4); Hematocrit 38.6 % (37.0-47.0); Hemoglobin 11.4 g/dL (12.0-15.0); Immature Granulocyte Absolute 0.02 K/mm3 (0.00-0.031); Immature Granulocyte Percent A 0.3 % (0-0.5); Lymphocytes Absolute Auto 2.75 K/mm3 (0.9-3.2); Lymphocytes Percent Auto 36.8 % (18.3-44.2); Mean Corpuscular HGB Conc 29.5 g/dl (32-36); Mean Corpuscular Hemoglobin 23.1 pg (26-34); Mean Corpuscular Volume 78.1 fl (80-100); Mean Platelet Volume 11.1 fl (7.4-10.4); Monocytes Absolute Auto 0.5 K/mm3 (0.1-0.6); Neutrophils Absolute Auto 3.9 K/mm3 (1.3-6.7); Neutrophils Percent Auto 51.7 % (45.5-73.1); Platelet Count Result 362 k/mm3 (150-375); Red Blood Count 4.94 M/mm3 (4.2-5.4); Red Cell Distribution Width 18.1 % (11.5-14.5); White Blood Count 7.5 K/mm3 (4.5-10.0)
[2024-02-26 06:39] LABS: Anion Gap 7 mmol/L (4-12); Blood Urea Nitrogen 13 mg/dL (7-17); Calcium 9.1 mg/dL (8.4-10.2); Carbon Dioxide 23 mmol/L (22-30); Chloride 108 mmol/L (98-107); Estimated CRCL calculation 134 ml/min; Estimated Glomerular Filt Rate > 60; Glucose 94 mg/dL (65-110); Potassium 4.3 mmol/L (3.4-5.0); Sodium 138 mmol/L (137-145)
[2024-02-26 07:35] LABS: Anisocytosis 1+; Hypochromasia 1+; Platelet Estimate Adequate (Adequate); Schistocytes None Seen
[2024-02-26 08:00] VITALS: PULSE 92; O2SAT 100
[2024-02-26] MEDS: FERROUS SULFATE 325 MG TABLET DR PO (08:09)
[2024-02-26] MEDS: ONDANSETRON INJ 4 MG/2 ML VIAL IV PUSH (08:09)
[2024-02-26] MEDS: DOCUSATE SODIUM 100 MG CAPSULE PO (08:09)
[2024-02-26] MEDS: HYDROcodone/acetaminophen (*CRX) 5-325 MG TABLET 1 TAB PO ×2 (08:09→18:41)
[2024-02-26] MEDS: ENOXAPARIN 40 MG/0.4 ML SYRINGE SUB-Q (08:10)
[2024-02-26 14:00] VITALS: BP 127/63; PULSE 74; RESP 16; TEMP 36.3; O2SAT 98
--- NOTE | 2024-02-26 15:03 | WPDUROPN2 ---
Progress Note: A&P Assessment and Plan (1) Pyelonephritis: Code(s): N12 - Tubulo-interstitial nephritis, not specified as acute or chronic Status: Acute Assessment and Plan: Continue empiric antibiotics while awaiting urine culture. No preliminary urine culture available for review nearly 72 hours after collection which is abnormal. As she continues to improve on p.o. amoxicillin, it would be reasonable to discharge with 2 week course of this while monitoring urine culture on outpatient basis to ensure appropriate coverage (2) Ureteral stent present: Code(s): Z96.0 - Presence of urogenital implants Status: Acute Assessment and Plan: Left ureteral stent in expected position with no hydro. Will need outpatient ESWL and stent removal. Will refer to [facility] in [place] for outpatient procedure given her insurance. (3) Left nephrolithiasis: Code(s): N20.0 - Calculus of kidney Status: Acute Assessment and Plan: 6 mm left renal pelvis stone. Will need outpatient ESWL as above. Subjective Subjective Date/Time Seen: 02/26/24 15:03 Interval history: Celia is feeling well today. She offers no complaints. Denies dysuria, hematuria, suprapubic pain, flank pain, back pain, nausea, vomiting, fever, chills. Review of Systems Review of Systems: All systems reviewed & are unremarkable except as noted in HPI and below Exam Narrative: General: Awake, alert, comfortable, no acute distress HEENT: Normocephalic, atraumatic, sclerae anicteric Respiratory: Normal respiratory effort, no accessory muscle use Abdomen: Nondistended, soft, nontender Skin: Normal coloration, warm and dry Neurologic: No focal neuro deficits noted Psychiatric: Appropriate mood and affect, judgment and insight intact Objective Data Vital Signs Vital Signs: Vital Signs - 24 hr 02/25/24 21:06 02/26/24 05:18 02/26/24 08:00 Temperature 97.5 F L 97.9 F Pulse Rate 81 76 92 Respiratory Rate 16 16 Blood Pressure 134/51 L 122/54 L Pulse Oximetry 97 100 100 Oxygen Delivery Room Air 02/26/24 14:00 Temperature 97.3 F L Pulse Rate 74 Respiratory Rate 16 Blood Pressure 127/63 Pulse Oximetry 98 Oxygen Delivery Intake/Output Intake/Output: Intake & Output 02/23/24 02/24/24 02/25/24 02/26/24 23:59 23:59 23:59 23:59 Intake Total 1050 5780 3550 1220 Output Total 5 Balance 1050 5780 2288 1220 Meds/Results Medications: Active Medications Generic Name Dose Route Start Last Admin Trade Name Freq PRN Reason Stop Dose Admin Hydrocodone Bitart/Acetaminophen 1 tab 02/23/24 22:59 02/26/24 08:09 Hydrocodone/Acetaminophen (*Crx) 5-325 Mg Tablet PO 1 tab Q6H PRN Administration Pain Rated 4-6 Amoxicillin 500 mg 02/26/24 12:00 Amoxicillin 500 Mg Capsule PO Q8HR NICHOL Diphenhydramine HCl 25 mg 02/24/24 02:25 02/25/24 20:35 Diphenhydramine Hcl Cap 25 Mg Capsule PO 25 mg Q6H PRN Administration Itching Docusate Sodium 100 mg 02/25/24 21:00 02/26/24 08:09 Docusate Sodium 100 Mg Capsule PO 100 mg Q12HR NICHOL Administration Enoxaparin Sodium 40 mg 02/24/24 09:00 02/26/24 08:10 Enoxaparin 40 Mg/0.4 Ml Syringe SUB-Q 40 mg DAILY NICHOL Administration Ferrous Sulfate 325 mg 02/25/24 09:00 02/26/24 08:09 Ferrous Sulfate [address] PO 325 mg DAILY NICHOL Administration Ibuprofen 400 mg 02/23/24 22:59 Ibuprofen 400 Mg Tablet PO Q6H PRN Pain Rated 1-3 or fever Morphine Sulfate 2 mg 02/23/24 22:59 02/24/24 18:50 Morphine Sulfate (*Crx) 2 Mg/Ml Inj IV PUSH 2 mg Q4H PRN Administration Pain Rated 7-10 Ondansetron HCl 4 mg 02/23/24 22:59 02/26/24 08:09 Ondansetron Inj 4 Mg/2 Ml Vial IV PUSH 4 mg Q4H PRN Administration Nausea And Vomiting Radiology Results: ITS Impressions Abdomen/Pelvis CT 02/23/24 17:28 IMPRESSION: 1. Left periureteral fluid/edema. Left inte
--- NOTE | 2024-02-26 15:57 | PM.IMPN ---
Progress Note: A&P Assessment and Plan (1) Pyelonephritis: Code(s): N12 - Tubulo-interstitial nephritis, not specified as acute or chronic Status: Acute Assessment and Plan: Patient with recent instrumentation of the kidney. She presents with left flank pain and dysuria. UA is concerning for UTI. UCx collected. Rocephin started. CT of the abdomen and pelvis shows left periureteral fluid and edema. Consider ascending UTI Normal WBC and no fevers here. Renal function normal. Urine culture still not resulted. ID pharmacist called [facility] and they reported Enterococcus but no sensitivities yet. On 02/26/2024 change ceftriaxone to amoxicillin. Home tomorrow with defined sensitivities Urology consulted and appreciate their input (2) Left nephrolithiasis: Code(s): N20.0 - Calculus of kidney Status: Acute Assessment and Plan: CT scan shows of nonobstructing left nephrolithiasis. Left internal ureteral stent is in expected position. Further management as outpatient once urine infection clears. (3) Ureteral stent present: Code(s): Z96.0 - Presence of urogenital implants Status: Acute Assessment and Plan: As above Plan Anemia - minor microcytic anemia probably related to iron loss from menses. UPT negative (02/22). Add oral iron Code status -full DVT prophylax -Lovenox Subjective Date/time seen: 02/26/24 15:57 Interval history: No acute overnight events. Patient denies fevers chills chest pain shortness of breath. Admits to mild left-sided pain. Review of Systems Review of Systems: All systems reviewed & are unremarkable except as noted in HPI and below (Subjective) Exam Const: General: comfortable and no acute distress Other: Obese. A&O x3. Eyes: Pupils: Equal, round and reactive pupils present Neck: Neck: supple Resp: Effort & Inspection: normal respiratory effort Auscultation: clear to auscultation bilaterally Cardio: Rate: regular rate Rhythm: regular rhythm GI: Inspection: non-distended GI Palp: Yes Soft to palpation, No Tenderness to palpation present (GI) and No Guarding due to palpation present (GI) Auscultation: normal bowel sounds : Other: Mild left-sided flank back pain on deep palpation Extrem: General: no edema Objective Data Vital Signs Vital Signs: Vital Signs - 24 hr 02/25/24 21:06 02/26/24 05:18 02/26/24 08:00 Temperature 97.5 F L 97.9 F Pulse Rate 81 76 92 Respiratory Rate 16 16 Blood Pressure 134/51 L 122/54 L Pulse Oximetry 97 100 100 Oxygen Delivery Room Air 02/26/24 14:00 Temperature 97.3 F L Pulse Rate 74 Respiratory Rate 16 Blood Pressure 127/63 Pulse Oximetry 98 Oxygen Delivery Intake/Output Intake/Output: Intake & Output 02/23/24 02/24/24 02/25/24 02/26/24 23:59 23:59 23:59 23:59 Intake Total 1050 5780 3550 1220 Output Total 5 Balance 1050 5780 3545 1220 Meds/Results Medications: Active Medications Generic Name Dose Route Start Last Admin Trade Name Freq PRN Reason Stop Dose Admin Hydrocodone Bitart/Acetaminophen 1 tab 02/23/24 22:59 02/26/24 08:09 Hydrocodone/Acetaminophen (*Crx) 5-325 Mg Tablet PO 1 tab Q6H PRN Administration Pain Rated 4-6 Amoxicillin 500 mg 02/26/24 12:00 Amoxicillin 500 Mg Capsule PO Q8HR NICHOL Diphenhydramine HCl 25 mg 02/24/24 02:25 02/25/24 20:35 Diphenhydramine Hcl Cap 25 Mg Capsule PO 25 mg Q6H PRN Administration Itching Docusate Sodium 100 mg 02/25/24 21:00 02/26/24 08:09 Docusate Sodium 100 Mg Capsule PO 100 mg Q12HR NICHOL Administration Enoxaparin Sodium 40 mg 02/24/24 09:00 02/26/24 08:10 Enoxaparin 40 Mg/0.4 Ml Syringe SUB-Q 40 mg DAILY NICHOL Administration Ferrous Sulfate 325 mg 02/25/24 09:00 02/26/24 08:09 Ferrous Sulfate [address] PO 325 mg DAILY NICHOL Administration Ibuprofen 400 mg 02/23/24 22:59 Ibuprofen 400 Mg Table
[2024-02-26] MEDS: AMOXICILLIN 500 MG CAPSULE PO ×2 (18:40→20:50)
[2024-02-26 21:05] VITALS: O2SAT 99
[2024-02-26 21:27] VITALS: BP 140/72; PULSE 80; RESP 16; TEMP 36.5; O2SAT 100
[2024-02-26] MEDS: diphenhydrAMINE HCl CAP 25 MG CAPSULE PO (21:36)
[2024-02-27] MEDS: AMOXICILLIN 500 MG CAPSULE PO (05:29)
[2024-02-27] MEDS: HYDROcodone/acetaminophen (*CRX) 5-325 MG TABLET 1 TAB PO (05:29)
[2024-02-27 06:00] VITALS: BP 114/63; PULSE 75; RESP 16; TEMP 36.6; O2SAT 100
[2024-02-27] MEDS: ENOXAPARIN 40 MG/0.4 ML SYRINGE SUB-Q (08:41)
[2024-02-27] MEDS: FERROUS SULFATE 325 MG TABLET DR PO (08:41)
--- NOTE | 2024-02-27 09:50 | WPDUROPN2 ---
Progress Note: A&P Assessment and Plan (1) Pyelonephritis: Code(s): N12 - Tubulo-interstitial nephritis, not specified as acute or chronic Status: Acute Assessment and Plan: Urine culture with growth of Enterococcus, sensitive to ampicillin. Continue antibiotics to complete a 2 week course. Okay for discharge from Urology standpoint on appropriate p.o. antibiotics (2) Ureteral stent present: Code(s): Z96.0 - Presence of urogenital implants Status: Acute Assessment and Plan: Left ureteral stent in expected position with no hydro. Will need outpatient ESWL and stent removal. Will refer to [facility] in [place] for outpatient procedure given her insurance. She is scheduled for follow-up in 1 week, 03/05/2024 (3) Left nephrolithiasis: Code(s): N20.0 - Calculus of kidney Status: Acute Assessment and Plan: 6 mm left renal pelvis stone. Will need outpatient ESWL as above. Subjective Subjective Date/Time Seen: 02/27/24 09:50 Interval history: Feeling well today. Offers no concerns. Voiding without difficulty. Eager for discharge home. Review of Systems Review of Systems: All systems reviewed & are unremarkable except as noted in HPI and below Exam Narrative: General: Awake, alert, comfortable, no acute distress HEENT: Normocephalic, atraumatic, sclerae anicteric Respiratory: Normal respiratory effort, no accessory muscle use Abdomen: Nondistended, soft, nontender Skin: Normal coloration, warm and dry Neurologic: No focal neuro deficits noted Psychiatric: Appropriate mood and affect, judgment and insight intact Objective Data Vital Signs Vital Signs: Vital Signs - 24 hr 02/26/24 14:00 02/26/24 21:27 02/26/24 21:05 Temperature 97.3 F L 97.7 F Pulse Rate 74 80 Respiratory Rate 16 16 Blood Pressure 127/63 140/72 Pulse Oximetry 98 100 99 Oxygen Delivery Room Air 02/27/24 06:00 Temperature 97.8 F Pulse Rate 75 Respiratory Rate 16 Blood Pressure 114/63 Pulse Oximetry 100 Oxygen Delivery Intake/Output Intake/Output: Intake & Output 02/24/24 02/25/24 02/26/24 02/27/24 23:59 23:59 23:59 23:59 Intake Total 5780 3550 1760 800 Output Total 5 Balance 5780 3545 1760 800 Meds/Results Medications: Active Medications Generic Name Dose Route Start Last Admin Trade Name Freq PRN Reason Stop Dose Admin Hydrocodone Bitart/Acetaminophen 1 tab 02/23/24 22:59 02/27/24 05:29 Hydrocodone/Acetaminophen (*Crx) 5-325 Mg Tablet PO 1 tab Q6H PRN Administration Pain Rated 4-6 Amoxicillin 500 mg 02/26/24 12:00 02/27/24 05:29 Amoxicillin 500 Mg Capsule PO 500 mg Q8HR NICHOL Administration Diphenhydramine HCl 25 mg 02/24/24 02:25 02/26/24 21:36 Diphenhydramine Hcl Cap 25 Mg Capsule PO 25 mg Q6H PRN Administration Itching Docusate Sodium 100 mg 02/25/24 21:00 02/27/24 08:43 Docusate Sodium 100 Mg Capsule PO Not Given Q12HR [facility] Enoxaparin Sodium 40 mg 02/24/24 09:00 02/27/24 08:41 Enoxaparin 40 Mg/0.4 Ml Syringe SUB-Q 40 mg DAILY [facility] Administration Ferrous Sulfate 325 mg 02/25/24 09:00 02/27/24 08:41 Ferrous Sulfate [address] PO 325 mg DAILY [facility] Administration Ibuprofen 400 mg 02/23/24 22:59 Ibuprofen 400 Mg Tablet PO Q6H PRN Pain Rated 1-3 or fever Ondansetron HCl 4 mg 02/23/24 22:59 02/26/24 08:09 Ondansetron Inj 4 Mg/2 Ml Vial IV PUSH 4 mg Q4H PRN Administration Nausea And Vomiting Radiology Results: ITS Impressions Abdomen/Pelvis CT 02/23/24 17:28 IMPRESSION: 1. Left periureteral fluid/edema. Left internal ureteral stent in expected position. Consider ascending urinary tract infection in the appropriate clinical setting. 2: Nonobstructing left nephrolithiasis.
--- NOTE | 2024-02-27 11:45 | PM.DS ---
DS: Admitting Diagnosis Discharge Date 02/27/2024 Admitting Diagnosis Back pain DS: Discharge Diagnosis Discharge Diagnosis (1) Pyelonephritis: Code(s): N12 - Tubulo-interstitial nephritis, not specified as acute or chronic Status: Acute (2) Left nephrolithiasis: Code(s): N20.0 - Calculus of kidney Status: Acute (3) Ureteral stent present: Code(s): Z96.0 - Presence of urogenital implants Status: Acute DS: Summary Hospital Course Hospital Course: 28-year-old female with history of morbid obesity saddle PE associated with COVID recently diagnosed obstructive kidney stone present to the ER with left flank pain. She was admitted recently and had stent placement done on 12. She had associated mild nausea no hematuria chills. White cell count was normal in the ER. UA was positive for leukocyte esterase greater than 100 RBC 51-100 WBC many squamous cells and 4+ bacteria. CT abdomen pelvis showed left pyelonephritis. She was treated with IV antibiotics. Urine culture grew Enterococcus and was sensitive to ampicillin was eventually switched to amoxicillin. She will need follow-up with Urology which is already scheduled in a week. Will need outpatient ESWL. She had mild anemia. Patient Time Spent with Patient Time attestation: Total time spent providing and/or coordinating discharge services: 35 minutes Exam Narrative: General: Awake, alert, comfortable, no acute distress HEENT: Normocephalic, atraumatic, sclerae anicteric Respiratory: Normal respiratory effort, no accessory muscle use Abdomen: Nondistended, soft, nontender Skin: Normal coloration, warm and dry Neurologic: No focal neuro deficits noted Psychiatric: Appropriate mood and affect, judgment and insight intact DS: Data Imaging Radiologist's impression: ITS Impressions Abdomen/Pelvis CT 02/23/24 17:28 IMPRESSION: 1. Left periureteral fluid/edema. Left internal ureteral stent in expected position. Consider ascending urinary tract infection in the appropriate clinical setting. 2: Nonobstructing left nephrolithiasis. Discharge Plan Discharge Attending physician on discharge: Jeremy Mccormick Discharging Clinician: Jeremy Mccormick Anticipated Discharge Date/Time: 02/27/24 11:42 Patient Disposition: Home, Self-Care Activity: as tolerated Diet: regular Patient Instructions: Antibiotic Form, Pain Management (DC) Stand Alone Forms: General Discharge Information Follow-up/Referrals: UNKNOWN,DOCTOR [Primary Care Provider] - 1 Week Discharge Medications: New hydrocodone-acetaminophen 5-325 mg Tablet 1 tablet PO Q6H PRN (Reason: Pain Rated 4-6) Qty: 15 0RF docusate sodium 100 mg Capsule 100 mg PO Q12HR Qty: 30 0RF amoxicillin 500 mg Capsule 500 mg PO Q8HR Qty: 39 0RF ondansetron 4 mg tablet,disintegrating 4 mg PO Q8H PRN (Reason: nausea and vomiting) Qty: 30 0RF ferrous sulfate 325 mg (65 mg iron) Tablet,Delayed Release (Dr/Ec) 325 mg PO DAILY Qty: 30 0RF Date of admission: 02/23/24 20:07 Primary Care Provider: UNKNOWN,DOCTOR Admitting Provider: Arina Cazares Attending physician on admission: Arina Cazares Condition: Stable
== END 2024-02-27 12:21 | disposition home or self-care (01) | DRG 463 ==
LOC: ANHED 19:44 → ANH3MEDSUR 20:36
PROVIDERS: General Practice; Internal Medicine; Admitting Provider Internal Medicine; Emergency Provider Student in an Organized Health Care Education/Training Program; Visit Provider Internal Medicine
DX: N12 Tubulo-interstitial nephritis, not specified as acute or chronic (principal); N20.0 Calculus of kidney; E66.01 Morbid (severe) obesity due to excess calories; Z86.711 Personal history of pulmonary embolism
CPT/HCPCS: 36415; 74176; 80048; 80053; 81001; 81025; 83690; 83735; 84145; 85025; 87086; 87088; 87181; 96365; 96375; 99285; A9270; J0696; J1650; J2270; J2405; J7120